=== PATIENT | male | born 1990 | race Hispanic/Latino ===

== ENCOUNTER 2017-01-09 14:00 | Inpatient (IN) | payer MEDICAID ==
[2017-01-09 14:00] VITALS: BMI 31.0
[2017-01-09] MEDS ORDERED: Sodium Chloride 0.9% 1,000 ML IV ONE ×2 (15:02→15:03)
--- NOTE | 2017-01-09 15:08 | C.PDOC ---
History Of Present Illness 26 y/o male presents to the ED with complains of fever which onset this morning. Pt admits to IV drug use and is concerned. Last use 6 hours ago. Fever 102.4 in ED. Denies vomiting, diarrhea, chest pain, SOB or any other complaints. Time Seen by Provider: 01/09/17 14:45 Chief Complaint (Nursing): Fever History Per: Patient History/Exam Limitations: no limitations Onset/Duration Of Symptoms: Hrs Current Symptoms Are (Timing): Still Present Sick Contacts (Context): None Associated Symptoms: Fever. denies: Vomiting, Diarrhea Severity: Mild Recent travel outside of the [place]: No Past Medical History Reviewed: Historical Data, Nursing Documentation, Vital Signs Vital Signs: Last Vital Signs Temp 98.7 F 01/09/17 18:18 Pulse 123 H 01/09/17 18:18 Resp 18 01/09/17 18:18 BP 107/53 L 01/09/17 18:18 Pulse Ox 97 01/09/17 18:18 - Medical History PMH: Anxiety, Depression - [facility] Procedures DETOXIFICATION SERVICES FOR SUBSTANCE ABUSE TREATMENT (06/13/16) GROUP DECK MATE FOR SUBSTANCE ABUSE TREATMENT, PSYCHOEDUCATION (05/13/16) MEDICATION MANAGEMENT (06/13/16) Family History: States: Unknown Family Hx - Social History Hx Tobacco Use: Yes Hx Alcohol Use: No Hx Substance Use: Yes (heroin iv) - Immunization History Hx Tetanus Toxoid Vaccination: No Hx Influenza Vaccination: No Hx Pneumococcal Vaccination: No Review Of Systems Except As Marked, All Systems Reviewed And Found Negative. Constitutional: Positive for: Fever Cardiovascular: Negative for: Chest Pain Respiratory: Negative for: Shortness of Breath Gastrointestinal: Negative for: Vomiting, Diarrhea Physical Exam - Physical Exam Appears: Non-toxic, No Acute Distress Skin: Warm, Dry, No Rash, Other (track vargas bilateral arms; erythema and tenderness to right antecubital area) Head: Atraumatic, Normacephalic Ear(s): Bilateral: Normal Nose: Normal Oral Mucosa: Moist Neck: Normal ROM, Supple Chest: Symmetrical Cardiovascular: Rhythm Regular (tachycardic), No Murmur Respiratory: Normal Breath Sounds, No Rales, No Rhonchi, No Wheezing Gastrointestinal/Abdominal: Soft, No Tenderness Extremity: Bilateral: Atraumatic Neurological/Psych: Oriented x3 ED Course And Treatment - Laboratory Results Result Diagrams: 01/09/17 15:35 01/09/17 15:02 Lab Interpretation: Normal O2 Sat by Pulse Oximetry: 97 (on room air) Pulse Ox Interpretation: Normal - Other Rad CXR X-Ray: Viewed By Me, Read By Radiologist Interpretation: FINDINGS: Examination limited by habitus. LUNGS: Subtle opacities at the right lung base and medial right lower lobe may reflect atelectasis versus developing infiltrate. Please note that chest x-ray has limited sensitivity for the detection of pulmonary masses. PLEURA: No significant pleural effusion identified. No definite pneumothorax . CARDIOVASCULAR: The cardiomediastinal silhouette appears within normal limits of size. OSSEOUS STRUCTURES: No acute osseous abnormality identified. VISUALIZED UPPER ABDOMEN: Unremarkable. OTHER FINDINGS: None. IMPRESSION: Subtle opacities at the right lung base and medial right lower lobe may reflect atelectasis versus developing infiltrate. Progress Note: Plan: EKG, labs, CXR, UA, IV fluids. Treated with rocephin 1 GM IV. 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 - Scribe Statement The provider has reviewed the documentation as recorded by the Getachew Randall All medical record entries made by the Getachew were at my direction and personally dictated by me. I have reviewed the chart and agree that the record accurately reflects my personal performance of the history, physical exam, medical decision making, and the department course for this patient. I have also personally directed, reviewed, and agree with the discharge instructions and disposition. Decision To Admit - Pt Status Changed To: Hospital Disposition Of: Inpatient - Admit Certification Admit to Inpatient:: After my assessment, the patient will require hospitalization for at least two midnights. This is because of the severity of symptoms shown, intensity of services needed, and/or the medical risk in this patient being treated as an outpatient. - InPatient: Physician Admission Certification:: Fever, UTI. Cellulitis right arm. Pneumonia. IVD - . Bed Request Type: Regular Admitting Physician: Payton Hu Patient Diagnosis: Fever, Drug dependence, UTI (urinary tract infection), Pneumonia, Cellulitis
[2017-01-09 15:45] LABS: BASO % 0.2 % (0.0-2.0); EOS % 0.2 % (0.0-4.0); HEMATOCRIT 39.3 % (35.0-51.0); LYMPH # 0.5 K/uL (1.0-4.3); LYMPH % 6.8 % (20.0-40.0); MEAN CELL VOLUME 82.7 fL (80.0-94.0); MEAN CORPUSCULAR HEMOGLOBIN 27.7 pg (27.0-31.0); MEAN CORPUSCULAR HGB CONC 33.5 g/dL (33.0-37.0); MEAN PLATELET VOLUME 7.9 fL (7.2-11.7); MONO # 0.4 K/uL (0.0-0.8); MONO % 5.6 % (0.0-10.0); PLATELET COUNT 134 K/uL (130-400); RED CELL DISTRIBUTION WIDTH 14.4 % (11.5-14.5); WHITE BLOOD COUNT 6.8 K/uL (4.8-10.8)
[2017-01-09 15:50] LABS: CHLORIDE 97 mmol/L (98-107); POTASSIUM 4.5 mmol/L (3.6-5.2); SODIUM 132 mmol/L (132-148)
[2017-01-09 15:52] LABS: GFR AFRICAN-AMERICAN > 60
[2017-01-09 15:53] LABS: ALB/GLOB RATIO 1.4 (1.0-2.1); ALKALINE PHOSPHATASE 44 U/L (38-126); ALT/SGPT 36 U/L (21-72); AST/SGOT 67 U/L (17-59); BILIRUBIN,TOTAL 0.5 mg/dL (0.2-1.3); BLOOD UREA NITROGEN 7 mg/dL (9-20); CALCIUM 7.9 mg/dl (8.6-10.4); CARBON DIOXIDE 25 mmol/L (22-30); GLUCOSE,RANDOM 95 mg/dL (75-110); TOTAL PROTEIN 6.6 g/dL (6.3-8.3)
--- NOTE | 2017-01-09 16:06 | RAD ---
HISTORY: SOB COMPARISON: Chest x-ray performed 05/05/16 TECHNIQUE: Chest PA and lateral FINDINGS: Examination limited by habitus. LUNGS: Subtle opacities at the right lung base and medial right lower lobe may reflect atelectasis versus developing infiltrate. Please note that chest x-ray has limited sensitivity for the detection of pulmonary masses. PLEURA: No significant pleural effusion identified. No definite pneumothorax . CARDIOVASCULAR: The cardiomediastinal silhouette appears within normal limits of size. OSSEOUS STRUCTURES: No acute osseous abnormality identified. VISUALIZED UPPER ABDOMEN: Unremarkable. OTHER FINDINGS: None. IMPRESSION: Subtle opacities at the right lung base and medial right lower lobe may reflect atelectasis versus developing infiltrate.
[2017-01-09] MEDS ORDERED: Sodium Chloride 0.9% 1,000 ML ONE ×2 (16:16→17:47)
[2017-01-09] MEDS ORDERED: cefTRIAXone IV 1 gm in Dextros 50 ML IV ONE (16:46)
[2017-01-09 16:49] LABS: RBC URINE 8 /hpf (0-3); URINE BACTERIA MOD (<OCC); URINE BILIRUBIN NEGATIVE (NEGATIVE); URINE BLOOD 1+ (NEGATIVE); URINE COLOR Yellow (YELLOW); URINE GLUCOSE (UA) NORMAL (Normal); URINE KETONE NEGATIVE (NEGATIVE); URINE LEUKOCYTE ESTERASE 3+ Leu/uL (Negative); URINE PROTEIN 2+ mg/dL (NEGATIVE); URINE UROBILINOGEN NORMAL mg/dL (0.2-1.0); WBC URINE 201 /hpf (0-5)
[2017-01-09 17:10] LABS: NEUTROPHIL 83 % (50-75); TOTAL CELLS COUNTED 100
[2017-01-09] MEDS ORDERED: cefTRIAXone IV 1 gm in Dextros 50 ML IVPB ONE (17:47)
[2017-01-09] MEDS ORDERED: Methadone 40 mg Tab PO ONE (19:44)
--- NOTE | 2017-01-09 20:29 | CP.PCM.HP ---
<Lina Maxwell - Last Filed: 01/09/17 20:35> History of Present Illness - History of Present Illness History of Present Illness: Internal medicine H & P for Hospitalist service-Lina Maxwell, PGY-1 Pt S & E at bedside. 26M w/PMH sig for Erythromalacia admitted to hospital for fever of unknown origin x 1 day. 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 No alleviating or aggravating factors identified. Admits to diaphoresis, chills, non productive cough, sinus congestion, myalgias, weakness, fatigue. Denies N/V, SOB, CP, abdominal pain, [place], dysphagia, changes in bowel or bladder habits, hematuria, hematemesis, hematuria, changes in vision, palpitations, [place], symptoms of withdrawal, seizure activity, sick contacts. PMH: Erythromalacia (sp?) PSH; Denies All: Denies SH: Denies tobacco or ETOH use, admits to heroin use- 15bags /day x 7 yrs intermittently, PMD: [place] in [place] Present on Admission - Present on Admission Any Indicators Present on Admission: No History of DVT/PE: No History of Uncontrolled Diabetes: No Urinary Catheter: No Decubitus Ulcer Present: No Review of Systems - Review of Systems All systems: reviewed and no additional remarkable complaints except - Constitutional Constitutional: Chills, Fever, Lethargy. absent: Headache, Weakness - EENT Eyes: absent: Blurred Vision, Change in Vision, Diplopia Ears: absent: Dizziness Nose/Mouth/Throat: Nasal Congestion, Sinus Pressure, Sore Throat - Cardiovascular Cardiovascular: absent: Chest Pain, Leg Edema, Palpitations - Respiratory Respiratory: Cough - Gastrointestinal Gastrointestinal: absent: Abdominal Pain, Constipation, Diarrhea, Hematemesis, Hematochezia, Melena, Nausea, Vomiting - Genitourinary Genitourinary: absent: Change in Urinary Stream, Dysuria, Hematuria - Musculoskeletal Musculoskeletal: Myalgias. absent: Numbness, Tingling - Integumentary Integumentary: absent: Rash - Neurological Neurological: absent: Numbness, Tingling, Weakness - Psychiatric Psychiatric: absent: Change in Appetite - Endocrine Endocrine: absent: Palpitations Past Patient History - Infectious Disease Hx of Infectious Diseases: None - Past Medical History & Family History Past Medical History?: Yes - Past Social History Smoking Status: Heavy Smoker > 10 Cigarettes Daily - CARDIAC Hx Cardiac Disorders: No Hx Hypertension: No - PULMONARY Hx Tuberculosis: No - NEUROLOGICAL HX Cerebrovascular Accident: No Hx Seizures: No - HEENT Hx HEENT Problems: No - RENAL Hx Chronic Kidney Disease: No - ENDOCRINE/METABOLIC Hx Endocrine Disorders: No - HEMATOLOGICAL/ONCOLOGICAL Hx Cancer: No Hx Human Immunodeficiency Virus (HIV): No - INTEGUMENTARY Hx Dermatological Problems: No - MUSCULOSKELETAL/RHEUMATOLOGICAL Hx Musculoskeletal Disorders: No Hx Falls: No - GASTROINTESTINAL Hx Gastrointestinal Disorders: No - GENITOURINARY/GYNECOLOGICAL Hx Sexually Transmitted Disorders: No - PSYCHIATRIC Hx Anxiety: Yes Hx Depression: Yes Hx Substance Use: Yes (heroin iv) - SURGICAL HISTORY Hx Surgeries: No - ANESTHESIA Hx Anesthesia: No Meds Allergies/Adverse Reactions: Allergies Allergy/AdvReac Type Severity Reaction Status Date / Time No Known Allergies Allergy Verified 09/18/16 21:53 Physical Exam - Constitutional Appears: Non-toxic, No Acute Distress - Head Exam Head Exam: ATRAUMATIC, NORMAL INSPECTION, NORMOCEPHALIC - Eye Exam Eye Exam: EOMI, Normal appearance, PERRL Pupil Exam: NORMAL ACCOMODATION, PERRL - ENT Exam ENT Exam: Mucous Membranes Moist, Normal Exam - Neck Exam Neck exam: Positive for: Full Rom, Normal Inspection. Negative for: Lymphadenopathy - Respiratory Exam Respiratory Exam: Clear to Auscultation Bilateral, NORMAL BREATHING PATTERN. absent: Chest Wall Tenderness, Rales, Rhonchi, Wheezes, Respiratory Distress - Cardiovascular Exam Cardiovascular Exam: Tachycardia, +S1, +S2 - GI/Abdominal Exam GI & Abdominal Exam: Normal Bowel Sounds, Soft. absent: Distended, Firm, Guarding, Hernia, Tenderness - Extremities Exam Extremities exam: Positive for: normal inspection. Negative for: pedal edema, tenderness - Back Exam Back exam: FULL ROM, NORMAL INSPECTION. absent: paraspinal tenderness, rash noted, tenderness - Neurological Exam Neurological exam: Alert, CN II-XII Intact, Oriented x3 - Psychiatric Exam Psychiatric exam: Normal Affect, Normal Mood - Skin Skin Exam: Diaphoretic, Intact, Warm Additional comments: pt's hands are redder vs. proximal upper extremity Results - Vital Signs Recent Vital Signs: Last Vital Signs Temp 98.7 F 01/09/17 18:18 Pulse 123 H 01/09/17 18:18 Resp 18 01/09/17 18:18 BP 107/53 L 01/09/17 18:18 Pulse Ox 97 01/09/17 18:31 - Labs Result Diagrams: 01/09/17 15:35 01/09/17 15:02 Assessment & Plan - Assessment and Plan (Free Text) Assessment: Fever of unknown origin, hx of IVDU Tmax 102.4 Tachycardia No leukocytosis FU echo FU EKG Rocephin 1gm daily NS@100 Tylenol PRN Fever Azithromycin 500mg daily FU blood cxr FU urine cxr CXR w/Subtle opacities at the right lung base and medial right lower lobe may reflect atelectasis versus developing infiltrate. UTI U/A pos for Nitrates, Leukocyte esterase On Rocephin Monitor Substance abuse Methadone 10mg Q6H Zofran PRN Psych consult GI/DVT ppx SCDs Heparin Pepcid Dispo Admit to Med surg VS Q4H Regular diet Activity as shyam OOBTC DW attending - Date & Time Date: 01/09/17 Time: 06:00 Decision To Admit - Pt Status Changed To: Hospital Disposition Of: Observation - . Bed Request Type: Regular Admitting Physician: Rogerio Roman <Rogerio Roman - Last Filed: 01/10/17 15:15> Results - Vital Signs Recent Vital Signs: Last Vital Signs Temp 98.0 F 01/10/17 07:52 Pulse 92 H 01/10/17 07:52 Resp 20 01/10/17 07:52 BP 128/80 01/10/17 07:52 Pulse Ox 95 01/10/17 07:52 - Labs Result Diagrams: 01/10/17 07:15 01/10/17 07:15 Labs: Laboratory Results - last 24 hr 01/10/17 07:15 WBC 4.6 L RBC 4.73 Hgb 13.1 Hct 38.7 MCV 81.8 MCH 27.6 MCHC 33.8 RDW 15.1 H Plt Count 124 L MPV 7.8 Neut % (Auto) 73.4 Lymph % (Auto) 15.0 L [place] % (Auto) 10.8 H Eos % (Auto) 0.5 Baso % (Auto) 0.3 Neut # 3.4 Lymph # 0.7 L [place] # 0.5 Eos # 0.0 Baso # 0.0 Differential Comment APTT 35 H Sodium 138 Potassium 3.8 Chloride 101 Carbon Dioxide 26 Anion Gap 16 BUN 7 L Creatinine 0.9 Est GFR ( Amer) > 60 Est GFR (Non-Af Amer) > 60 Random Glucose 87 Calcium 7.6 L Total Bilirubin 0.5 AST 40 ALT 32 Alkaline Phosphatase 45 Total Protein 5.7 L Albumin 3.3 L Globulin 2.5 Albumin/Globulin Ratio 1.3 Attending/Attestation - Attestation I have personally seen and examined this patient.: Yes I have fully participated in the care of the patient.: Yes I have reviewed all pertinent clinical information: Yes Notes (Text): 01/10/17 15:14 Patient was seen and examined at bedside with the resident. Patient complains of for subjective fever, aches and pains in the body and cough. We will admit the patient for pneumonia and for heroin withdrawal. We will start the patient on IV antibiotics and methadone as needed. Patient will also be evaluated by psychiatry for opioid abuse. I discussed the plan of care with the resident and agree with the above history and physical and assessment/plan but the resident.
[2017-01-09] MEDS: Azithromycin 500mg/250ML NS 250 ML IVPB SCH (21:44)
[2017-01-09] MEDS: Sodium Chloride 0.9% 1,000 ML IV SCH (22:19)
[2017-01-09 22:35] VITALS: RESP 20
[2017-01-10] MEDS: Sodium Chloride 0.9% 1,000 ML IV SCH ×3 (05:19→14:55)
[2017-01-10 07:21] LABS: BASO % 0.3 % (0.0-2.0); EOS % 0.5 % (0.0-4.0); MEAN PLATELET VOLUME 7.8 fL (7.2-11.7); MONO # 0.5 K/uL (0.0-0.8)
[2017-01-10 07:33] LABS: HEMATOCRIT 38.7 % (35.0-51.0); LYMPH # 0.7 K/uL (1.0-4.3); MEAN CELL VOLUME 81.8 fL (80.0-94.0); MEAN CORPUSCULAR HEMOGLOBIN 27.6 pg (27.0-31.0); MEAN CORPUSCULAR HGB CONC 33.8 g/dL (33.0-37.0); MONO % 10.8 % (0.0-10.0); NRBC % 0.3 % (0.0-2.0); RED CELL DISTRIBUTION WIDTH 15.1 % (11.5-14.5); WHITE BLOOD COUNT 4.6 K/uL (4.8-10.8)
[2017-01-10 08:17] LABS: CHLORIDE 101 mmol/L (98-107); SODIUM 138 mmol/L (132-148)
[2017-01-10 08:18] LABS: POTASSIUM 3.8 mmol/L (3.6-5.2)
[2017-01-10 08:20] LABS: ALB/GLOB RATIO 1.3 (1.0-2.1); ALKALINE PHOSPHATASE 45 U/L (38-126); AST/SGOT 40 U/L (17-59); BILIRUBIN,TOTAL 0.5 mg/dL (0.2-1.3); BLOOD UREA NITROGEN 7 mg/dL (9-20); CARBON DIOXIDE 26 mmol/L (22-30); GFR AFRICAN-AMERICAN > 60; GLUCOSE,RANDOM 87 mg/dL (75-110); TOTAL PROTEIN 5.7 g/dL (6.3-8.3)
[2017-01-10 08:21] LABS: ALT/SGPT 32 U/L (21-72); CALCIUM 7.6 mg/dl (8.6-10.4)
--- NOTE | 2017-01-10 13:33 | CP.PCM.PN ---
Addendum entered and electronically signed by Lina Maxwell DO 01/10/17 13:47: Spoke with psych- Dr. Noonan- regarding pt. Pt well known to psych service, advised that pt does not need formal psych consult/eval- treatment plan reviewed , recommendation made for Methadone taper- 30mg today, 20mg tomorrow, 10mg the next day, then discontinue. Pt has known history of signing out AMA prior to resolution of medical/psych care. Addendum entered and electronically signed by Lina Maxwell DO 01/10/17 13:34: Per nursing, pt's mother at bedside asking to talk to physician. Dr. Roman and myself went to speak with pt's mother with permission of pt - mother states that pt has been diagnosed with HIV, but never been on medications to manage it , was kicked out of house due to drug use, was staying on couches/the streets, continued using drugs. Would like HIV diagnosis confirmed and would like to explore detox options for pt- was told that detox would have to be at request/ desire of patient. Original Note: <Lina Maxwell - Last Filed: 01/10/17 13:29> Subjective - Date & Time of Evaluation Date of Evaluation: 01/10/17 Time of Evaluation: 07:40 - Subjective Subjective: Internal medicine progress note for Hospitalist Service- Lina Maxwell, PGY-1 Pt S & E at bedside. Pt reports feeling slightly better, no fevers overnight, but could not sleep- pt reports Seroquel use at night that helps him sleep. Denies N/V, chills, SOB , diaphoresis, CP, abdominal pain, other complaints. Pt is eating ok, urinating ok. Objective - Vital Signs/Intake and Output Vital Signs (last 24 hours): Temp Pulse Resp BP Pulse Ox 98.0 F 92 H 20 128/80 95 01/10/17 07:52 01/10/17 07:52 01/10/17 07:52 01/10/17 07:52 01/10/17 07:52 Intake and Output: 01/10/17 01/10/17 06:59 18:59 Intake Total 920 Balance 920 - Medications Medications: Current Medications Acetaminophen (Tylenol 325mg Tab) 650 mg PO Q6 PRN PRN Reason: Fever >100.4 F Famotidine (Pepcid) 20 mg PO BID [facility] Last Admin: 01/10/17 09:13 Dose: 20 mg Gabapentin (Neurontin) 600 mg PO TID [facility] Heparin Sodium (Porcine) (Heparin) 5,000 units SC Q8 [facility] Last Admin: 01/10/17 05:18 Dose: Not Given Azithromycin (Zithromax 500mg In Ns Addvantage) 250 mls @ 167 mls/hr IVPB Q24H [facility] Last Admin: 01/09/17 21:44 Dose: 167 mls/hr Ceftriaxone Sodium 1 gm/ (Sodium Chloride) 100 mls @ 100 mls/hr IVPB DAILY [facility] Last Admin: 01/10/17 09:14 Dose: 100 mls/hr Sodium Chloride (Sodium Chloride 0.9%) 1,000 mls @ 100 mls/hr IV .Q10H [facility] Last Admin: 01/10/17 05:22 Dose: 100 mls/hr Methadone HCl (Methadone) 10 mg PO Q8H PRN PRN Reason: Agitation Ondansetron HCl (Zofran Inj) 4 mg IVP Q6 PRN PRN Reason: Nausea/Vomiting Pneumococcal Polyvalent Vaccine (Pneumovax 23 Vaccine) 0.5 ml SC .ONCE ONE Stop: 01/12/17 10:01 Quetiapine Fumarate (Seroquel) 200 mg PO HS [facility] - Labs Labs: 01/10/17 07:15 01/10/17 07:15 APTT 35 SECONDS (21-34) H 01/10/17 07:15 - Constitutional Appears: Non-toxic, No Acute Distress - Head Exam Head Exam: ATRAUMATIC, NORMAL INSPECTION, NORMOCEPHALIC - Eye Exam Eye Exam: EOMI, Normal appearance, PERRL Pupil Exam: NORMAL ACCOMODATION, PERRL - ENT Exam ENT Exam: Mucous Membranes Moist, Normal Exam - Neck Exam Neck Exam: Full ROM, Normal Inspection - Respiratory Exam Respiratory Exam: Clear to Ausculation Bilateral, NORMAL BREATHING PATTERN. absent: Accessory Muscle Use, Chest Wall Tenderness, Decreased Breath Sounds, Rhonchi, Wheezes, Stridor - Cardiovascular Exam Cardiovascular Exam: REGULAR RHYTHM, +S1, +S2 - GI/Abdominal Exam GI & Abdominal Exam: Soft, Normal Bowel Sounds. absent: Distended, Firm, Guarding, Rigid, Tenderness - Extremities Exam Extremities Exam: Full ROM, Normal Inspection. absent: Pedal Edema - Neurological Exam Neurological Exam: Alert, Awake, CN II-XII Intact, Oriented x3 - Psychiatric Exam Psychiatric exam: Normal Affect, Normal Mood - Skin Skin Exam: Dry, Intact, Normal Color, Warm Assessment and Plan - Assessment and Plan (Free Text) Assessment: Fevers, hx of IVDU Afebrile over last 24H Tachycardia- resolved No leukocytosis FU echo FU EKG Rocephin 1gm daily NS@100 Tylenol PRN Fever Azithromycin 500mg daily FU blood cxr Urine cxr neg CXR w/Subtle opacities at the right lung base and medial right lower lobe may reflect atelectasis versus developing infiltrate. FU HIV FU Hep panel UTI U/A pos for Nitrates, Leukocyte esterase On Rocephin Monitor Substance abuse Methadone 10mg Q6H changed to Q8H Zofran PRN Called pharmacy to confirm home meds, restarted Seroquel 200mg HS, Gabapentin 600mg TID [facility] Psych consult GI/DVT ppx SCDs Heparin Pepcid Dispo cont medical mgmt VS Q4H Regular diet Activity as shyam OOBTC Will consider ID consult if indicated DW attending <Rogerio Roman - Last Filed: 01/10/17 17:16> Objective - Vital Signs/Intake and Output Vital Signs (last 24 hours): Temp Pulse Resp BP Pulse Ox 97.6 F 83 20 112/71 96 01/10/17 15:00 01/10/17 15:00 01/10/17 15:00 01/10/17 15:00 01/10/17 15:00 Intake and Output: 01/10/17 01/10/17 06:59 18:59 Intake Total 920 1200 Output Total 700 Balance 920 500 - Medications Medications: Current Medications Acetaminophen (Tylenol 325mg Tab) 650 mg PO Q6 PRN PRN Reason: Fever >100.4 F Famotidine (Pepcid) 20 mg PO BID [facility] Last Admin: 01/10/17 09:13 Dose: 20 mg Gabapentin (Neurontin) 600 mg PO TID [facility] Last Admin: 01/10/17 13:41 Dose: 600 mg Heparin Sodium (Porcine) (Heparin) 5,000 units SC Q8 [facility] Last Admin: 01/10/17 13:41 Dose: 5,000 units Azithromycin (Zithromax 500mg In Ns Addvantage) 250 mls @ 167 mls/hr IVPB Q24H [facility] Last Admin: 01/09/17 21:44 Dose: 167 mls/hr Ceftriaxone Sodium 1 gm/ (Sodium Chloride) 100 mls @ 100 mls/hr IVPB DAILY [facility] Last Admin: 01/10/17 09:14 Dose: 100 mls/hr Sodium Chloride (Sodium Chloride 0.9%) 1,000 mls @ 100 mls/hr IV .Q10H [facility] Last Admin: 01/10/17 14:55 Dose: 100 mls/hr Methadone HCl (Methadone) 10 mg PO Q8H PRN PRN Reason: Agitation Ondansetron HCl (Zofran Inj) 4 mg IVP Q6 PRN PRN Reason: Nausea/Vomiting Pneumococcal Polyvalent Vaccine (Pneumovax 23 Vaccine) 0.5 ml SC .ONCE ONE Stop: 01/12/17 10:01 Quetiapine Fumarate (Seroquel) 200 mg PO HS [facility] - Labs Labs: 01/10/17 07:15 01/10/17 07:15 APTT 35 SECONDS (21-34) H 01/10/17 07:15 Attending/Attestation - Attestation I have personally seen and examined this patient.: Yes I have fully participated in the care of the patient.: Yes I have reviewed all pertinent clinical information, including history, physical exam and plan: Yes Notes (Text): 01/10/17 17:15 Patient was seen and examined at bedside today with the [place] and patient is feeling slightly better Cough is improving Body aches and pains are also improving We will continue treatment of for heroin withdrawal. Methadone We will taper the methadone Continue IV antibiotics for possible pneumonia. Psychiatry evaluation requested. Discussed with the patient and with the patient's mother with the permission of the patient We will check for HIV and hepatitis C Discussed the plan of care with the resident and agree with the history and physical and assessment/plan as stated above
--- NOTE | 2017-01-10 14:43 | CARD ---
APPROVED REPORT EKG Measurement Heart [id number] CT [id number] <Conclusion> Sinus tachycardia Possible Left atrial enlargement Borderline ECG
--- NOTE | 2017-01-10 17:57 | PCM.PSYCH ---
Initial Psychiatric Evaluation - Initial Psychiatric Evaluation Type of Admission: Voluntary Legal Status: Capacity Chief Complaint (in patient's own words): "I'm sick again" History of Present Illness and Precipitating Events: The pt is seen, chart reviewed and case discussed. 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 Consult was requested b/c he is using anna again. He is a 26 yo WM, single, no child, lives with friends and sometimes his family. 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 Used to have high paying jobs but he now regrets losing them all bc of drug use. He also has legal problems and fears he fears jail time, He uses 20 bags heroin and was in [facility]. Denies benzo or alcohol use He doesn;t remember if he was going to any program lately. Past psych history: Depression and anxiety. He uses Seroquel 200 mg and gabapentin. He has been admitted to psychiatry in our hospital but has never attempted suicide. He used many psychiatric medications in the past including SSRIs. He tends to sign out AMA as he gets "cooped up" and can be impulsive. Family psych history: His cousins had alcohol dependence Medical history: He was diagnosed with Polycythemia Vera but then they said it may not be that. Current Medications: Active Medications Generic Name Dose Route Start Last Admin Trade Name Freq PRN Reason Stop Dose Admin Acetaminophen 650 mg 01/09/17 18:45 Tylenol 325mg Tab PO Q6 PRN Fever >100.4 F Famotidine 20 mg 01/09/17 18:45 01/10/17 09:13 Pepcid PO 20 mg BID EMILIANO Administration Gabapentin 600 mg 01/10/17 14:00 01/10/17 13:41 Neurontin PO 600 mg TID EMILIANO Administration Heparin Sodium (Porcine) 5,000 units 01/09/17 22:00 01/10/17 13:41 Heparin SC 5,000 units Q8 EMILIANO Administration Azithromycin 250 mls @ 167 mls/hr 01/09/17 18:45 01/09/17 21:44 Zithromax 500mg In Ns Addvantage IVPB 167 mls/hr Q24H EMILIANO Administration Ceftriaxone Sodium 1 gm/ 100 mls @ 100 mls/hr 01/10/17 10:00 01/10/17 09:14 Sodium Chloride IVPB 100 mls/hr DAILY EMILIANO Administration Sodium Chloride 1,000 mls @ 100 mls/hr 01/09/17 18:45 01/10/17 14:55 Sodium Chloride 0.9% IV 100 mls/hr .Q10H EMILIANO Administration Methadone HCl 10 mg 01/10/17 13:25 Methadone PO Q8H PRN Agitation Ondansetron HCl 4 mg 01/09/17 18:45 Zofran Inj IVP Q6 PRN Nausea/Vomiting Pneumococcal Polyvalent Vaccine 0.5 ml 01/12/17 10:00 Pneumovax 23 Vaccine SC 01/12/17 10:01 .ONCE ONE Quetiapine Fumarate 200 mg 01/10/17 22:00 Seroquel PO HS EMILIANO Past Psychiatric History - Past Psychiatric History Previous Treatment History: Inpatient Pertinent Medical Hx (Current Medical&Sleep Prob, Allergies): Allergies Allergy/AdvReac Type Severity Reaction Status Date / Time No Known Allergies Allergy Verified 09/18/16 21:53 Gabapentin [Neurontin] 300 mg PO TID #90 cap 09/19/16 QUEtiapine [SEROquel] 100 mg PO HS #30 tab 09/19/16 Review of Systems - Neurological Neurological: UNREMARKABLE - Psychiatric Psychiatric: Abnormal Sleep Pattern, Anxiety, Difficulty Concentrating, Irritability. absent: Hallucinations, Homicidal Ideation, Paranoia, Suicidal Ideation Mental Status Examination - Personal Presentation Personal Presentation: Looks stated age - Affect Affect: Constricted - Motor Activity Motor Activity: Calm - Reliability in Providing Information Reliability in Providing Information: Good - Speech Speech: Organized - Mood Mood: Anxious - Formal Thought Process Formal Thought Process: No Impairment - Obsessions/Compulsions Obsessions: No Compulsions: No - Cognitive Functions Orientation: Person, Place, Time Sensorium: Alert Attention/Concentration: Attentive Estimate of Intelligence: Average Judgement: Intact, as evidence by: Insight regarding need for hospitalization Memory: Recent intact, as evidence by: Ability to recall events of the day, Remote intact, as evidenced by: Abilit to recall sig. life events - Risk Risk: Withdrawal, Diminished functioning - Strength & Assets Inventory Strength & Assets Inventory: Cooperative DSM 5 DX - DSM 5 DSM 5 Diagnosis: Primary: Major depression, recurrent, severe w/o psychosis Opioid withdrawal Opioid use d/o - severe Cocaine use d/o - severe Polyctemia Vera? - Recommended/Plan of Treatment Treatment Recommendations and Plan of Treatment: Depression: -Supportive therapy and CBT -Seroquel and Trazodone prn -Attend groups and activities Opioid withdrawal: -Methadone detox adjusted, getting 20 mg today and will taper off -As needed medications -Support and psychoeducation -Attend groups and activities Anxiety -Atarax PRN -Monitor symptoms Opioid use disorder: -Refer to [facility] for IOP and Suboxone treatment. He is not sure -Relapse prevention skills, CBT and CO Cocaine: -Gabapentin for withdrawal and anxiety -CO and CBT for abstinence Nicotine: -patch -CO and CBT 33 min
[2017-01-10] MEDS: Azithromycin 500mg/250ML NS 250 ML IVPB SCH (19:14)
[2017-01-11] MEDS: Sodium Chloride 0.9% 1,000 ML IV SCH ×3 (00:45→10:29)
[2017-01-11 07:48] VITALS: BP 116/73; PULSE 71; TEMP 97.7; O2SAT 96
[2017-01-11 08:14] LABS: BASO % 0.2 % (0.0-2.0); EOS # 0.1 K/uL (0.0-0.7); EOS % 4.8 % (0.0-4.0); HEMATOCRIT 37.4 % (35.0-51.0); LYMPH # 1.2 K/uL (1.0-4.3); LYMPH % 50.1 % (20.0-40.0); MEAN CELL VOLUME 82.3 fL (80.0-94.0); MEAN CORPUSCULAR HEMOGLOBIN 27.2 pg (27.0-31.0); MEAN CORPUSCULAR HGB CONC 33.1 g/dL (33.0-37.0); MEAN PLATELET VOLUME 7.9 fL (7.2-11.7); MONO # 0.3 K/uL (0.0-0.8); MONO % 12.2 % (0.0-10.0); NRBC % 0.1 % (0.0-2.0); RED CELL DISTRIBUTION WIDTH 15.4 % (11.5-14.5); WHITE BLOOD COUNT 2.5 K/uL (4.8-10.8)
[2017-01-11 08:43] LABS: CHLORIDE 108 mmol/L (98-107); POTASSIUM 3.8 mmol/L (3.6-5.2); SODIUM 142 mmol/L (132-148)
[2017-01-11 08:45] LABS: GFR AFRICAN-AMERICAN > 60
[2017-01-11 08:46] LABS: ALB/GLOB RATIO 1.3 (1.0-2.1); ALKALINE PHOSPHATASE 39 U/L (38-126); ALT/SGPT 29 U/L (21-72); AST/SGOT 29 U/L (17-59); BILIRUBIN,TOTAL 0.3 mg/dL (0.2-1.3); BLOOD UREA NITROGEN 7 mg/dL (9-20); CALCIUM 7.7 mg/dl (8.6-10.4); CARBON DIOXIDE 24 mmol/L (22-30); GLUCOSE,RANDOM 62 mg/dL (75-110); TOTAL PROTEIN 5.6 g/dL (6.3-8.3)
--- NOTE | 2017-01-11 11:04 | CP.PCM.PN ---
Addendum entered and electronically signed by Lina Maxwell DO 01/11/17 13:54: Pt requesting nicotine patch - ordered. Addendum entered and electronically signed by Lina Maxwell DO 01/11/17 11:50: Pt lost IV access - discontinued Rocephin and Azithromycin IVPB- started Augmentin and Zithromax PO. Addendum entered and electronically signed by Lina Maxwell DO 01/11/17 11:05: PT/OT ordered Original Note: <Lina Maxwell - Last Filed: 01/11/17 11:03> Subjective - Date & Time of Evaluation Date of Evaluation: 01/11/17 Time of Evaluation: 07:10 - Subjective Subjective: Internal medicine progress note for Hospitalist Service- Lina Maxwell, PGY-1 Pt S & E at bedside. Pt reports his condition is improved, he is no longer experiencing myalgias and diffuse aches, Pt states chills significantly reduced and his energy has returned. Pt states he also has not been eating well, attributing it to his withdrawing from heroin. Denies diaphoresis, WHITLEY, F, Chills, SOB, Cough, CP, Palp , Dysuria,urinary freq and urge, N, V, D, C, and myalgias. Objective - Vital Signs/Intake and Output Vital Signs (last 24 hours): Temp Pulse Resp BP Pulse Ox 97.7 F 71 20 116/73 96 01/11/17 07:45 01/11/17 07:45 01/11/17 07:45 01/11/17 07:45 01/11/17 07:45 Intake and Output: 01/11/17 01/11/17 06:59 18:59 Intake Total 2240 Balance 2240 - Medications Medications: Current Medications Acetaminophen (Tylenol 325mg Tab) 650 mg PO Q6 PRN PRN Reason: Fever >100.4 F Famotidine (Pepcid) 20 mg PO BID [facility] Last Admin: 01/11/17 10:29 Dose: 20 mg Gabapentin (Neurontin) 600 mg PO TID [facility] Last Admin: 01/11/17 10:29 Dose: 600 mg Heparin Sodium (Porcine) (Heparin) 5,000 units SC Q8 [facility] Last Admin: 01/11/17 05:38 Dose: 5,000 units Azithromycin (Zithromax 500mg In Ns Addvantage) 250 mls @ 167 mls/hr IVPB Q24H [facility] Last Admin: 01/10/17 19:14 Dose: 167 mls/hr Ceftriaxone Sodium 1 gm/ (Sodium Chloride) 100 mls @ 100 mls/hr IVPB DAILY [facility] Last Admin: 01/11/17 10:57 Dose: 100 mls/hr Sodium Chloride (Sodium Chloride 0.9%) 1,000 mls @ 100 mls/hr IV .Q10H [facility] Last Admin: 01/11/17 10:29 Dose: Not Given Methadone HCl (Methadone) 15 mg PO Q24H EMILIANO PRN Reason: Taper Stop: 01/15/17 09:59 Last Admin: 01/11/17 10:28 Dose: 15 mg Ondansetron HCl (Zofran Inj) 4 mg IVP Q6 PRN PRN Reason: Nausea/Vomiting Pneumococcal Polyvalent Vaccine (Pneumovax 23 Vaccine) 0.5 ml SC .ONCE ONE Stop: 01/12/17 10:01 Quetiapine Fumarate (Seroquel) 200 mg PO HS [facility] Last Admin: 01/10/17 21:59 Dose: 200 mg - Labs Labs: 01/11/17 08:02 01/11/17 08:02 APTT 35 SECONDS (21-34) H 01/10/17 07:15 - Constitutional Appears: Non-toxic, No Acute Distress - Head Exam Head Exam: ATRAUMATIC, NORMAL INSPECTION, NORMOCEPHALIC - Eye Exam Eye Exam: EOMI, Normal appearance, PERRL Pupil Exam: NORMAL ACCOMODATION, PERRL - ENT Exam ENT Exam: Mucous Membranes Moist, Normal Exam - Neck Exam Neck Exam: Full ROM, Normal Inspection - Respiratory Exam Respiratory Exam: Clear to Ausculation Bilateral, NORMAL BREATHING PATTERN - Cardiovascular Exam Cardiovascular Exam: REGULAR RHYTHM, +S1, +S2 - GI/Abdominal Exam GI & Abdominal Exam: Soft, Normal Bowel Sounds. absent: Tenderness - Back Exam Back Exam: Full ROM, NORMAL INSPECTION - Neurological Exam Neurological Exam: Alert, Awake, CN II-XII Intact, Oriented x3 - Psychiatric Exam Psychiatric exam: Normal Affect, Normal Mood - Skin Skin Exam: Dry, Intact, Warm. absent: Normal Color (B/L hands redder vs. rest of upper extremities) Assessment and Plan - Assessment and Plan (Free Text) Assessment: Fevers, hx of IVDU Afebrile over last 24H Leukopenia 2.5 FU echo- report pending EKG on 01/09- sinus tachycardia Rocephin 1gm daily NS@100 Tylenol PRN Fever Azithromycin 500mg daily Blood cxr neg x 24H Urine cxr neg CXR w/Subtle opacities at the right lung base and medial right lower lobe may reflect atelectasis versus developing infiltrate. FU HIV tests Hep panel neg UTI U/A pos for Nitrates, Leukocyte esterase On Rocephin Monitor Substance abuse Methadone 5mg Q24H as per psych Zofran PRN Cont Seroquel 200mg HS Cont Gabapentin 600mg TID EMILIANO Psych recs- Methadone taper, outpatient [facility] for IOP and suboxone treatment- pt unsure if desiring treatment at this time GI/DVT ppx SCDs Heparin Pepcid Dispo cont medical mgmt VS Q4H Regular diet Activity as shyam OOBTC DW attending <Rogerio Roman - Last Filed: 01/11/17 15:59> Objective - Vital Signs/Intake and Output Vital Signs (last 24 hours): Temp Pulse Resp BP Pulse Ox 97.7 F 71 20 116/73 96 01/11/17 07:45 01/11/17 07:45 01/11/17 07:45 01/11/17 07:45 01/11/17 07:45 Intake and Output: 01/11/17 01/11/17 06:59 18:59 Intake Total 2240 Balance 2240 - Medications Medications: Current Medications Acetaminophen (Tylenol 325mg Tab) 650 mg PO Q6 PRN PRN Reason: Fever >100.4 F Amoxicillin/Clavulanate Potassium (Augmentin 500 Mg-125 Mg Tab) 1 tab PO Q12H [facility] Last Admin: 01/11/17 13:09 Dose: 1 tab Azithromycin (Zithromax) 500 mg PO DAILY [facility] Last Admin: 01/11/17 13:09 Dose: 500 mg Famotidine (Pepcid) 20 mg PO BID [facility] Last Admin: 01/11/17 10:29 Dose: 20 mg Gabapentin (Neurontin) 600 mg PO TID [facility] Last Admin: 01/11/17 13:08 Dose: 600 mg Heparin Sodium (Porcine) (Heparin) 5,000 units SC Q12 [facility] Last Admin: 01/11/17 13:17 Dose: Not Given Sodium Chloride (Sodium Chloride 0.9%) 1,000 mls @ 100 mls/hr IV .Q10H [facility] Last Admin: 01/11/17 10:29 Dose: Not Given Methadone HCl (Methadone) 15 mg PO Q24H EMILIANO PRN Reason: Taper Stop: 01/15/17 09:59 Last Admin: 01/11/17 10:28 Dose: 15 mg Nicotine (Nicoderm Cq) 1 patch TD DAILY [facility] Last Admin: 01/11/17 14:38 Dose: 1 patch Ondansetron HCl (Zofran Inj) 4 mg IVP Q6 PRN PRN Reason: Nausea/Vomiting Pneumococcal Polyvalent Vaccine (Pneumovax 23 Vaccine) 0.5 ml SC .ONCE ONE Stop: 01/12/17 10:01 Quetiapine Fumarate (Seroquel) 200 mg PO HS [facility] Last Admin: 01/10/17 21:59 Dose: 200 mg - Labs Labs: 01/11/17 08:02 01/11/17 08:02 APTT 35 SECONDS (21-34) H 01/10/17 07:15 Attending/Attestation - Attestation I have personally seen and examined this patient.: Yes I have fully participated in the care of the patient.: Yes I have reviewed all pertinent clinical information, including history, physical exam and plan: Yes Notes (Text): 01/11/17 15:58 Patient was seen and examined at bedside with the resident He is feeling much better today. Denies any cough or expectoration Patient is afebrile for more than 24 hours Labs noted. Negative hepatitis panel and negative for HIV. Patient started on oral antibiotics Patient is anxious for discharge to to home We will discharge the patient home on oral antibiotics
[2017-01-11] MEDS ORDERED: Amoxicillin-Clav 500-125 mg Tab PO SCH (12:00)
--- NOTE | 2017-01-11 14:24 | CARD ---
APPROVED REPORT EXAM: Two-dimensional and M-mode echocardiogram with Doppler and color Doppler. Other Information Quality : GoodRhythm : NSR INDICATION IVDU/UTI M-Mode DIMENSIONS RVDd2.74 (2.1-3.2cm)Left Atrium (MM)3.23 (2.5-4.0cm) IVSd1.08 (0.7-1.1cm)Aortic Root2.88 (2.2-3.7cm) LVDd5.69 (4.0-5.6cm)Aortic Cusp Exc.2.46 (1.5-2.0cm) PWd0.66 (0.7-1.1cm)FS (%) 37 % LVDs3.61 (2.0-3.8cm)LVEF (%)66 (>50%) Mitral Valve MV E Nyrgfxpu60.8cm/sMV A Edenxqme79.5cm/sE/A ratio1.2 TDI E/Lateral E'0.0E/Medial E'0.0 Tricuspid Valve TR Peak [id number]/sTR Peak Gr.[id number] LEFT VENTRICLE The left ventricle is normal size. There is normal left ventricular wall thickness. The left ventricular function is normal. The left ventricular ejection fraction is within the normal range. No regional wall motion abnormalities noted. The left ventricular diastolic function is normal. No left ventricle thrombus noted on this study. There is no ventricular septal defect visualized. There is no left ventricular aneurysm. There is no mass noted in the left ventricle. RIGHT VENTRICLE The right ventricle is normal size. There is normal right ventricular wall thickness. The right ventricular systolic function is normal. ATRIA The left atrium size is normal. The right atrium size is normal. The interatrial septum is intact with no evidence for an atrial septal defect. AORTIC VALVE The aortic valve is normal in structure and function. No aortic regurgitation is present. There is no aortic valvular stenosis. There is no aortic valvular vegetation. MITRAL VALVE The mitral valve is normal in structure and function. There is no evidence of mitral valve prolapse. There is no mitral valve stenosis. There is no mitral valve regurgitation noted. TRICUSPID VALVE The tricuspid valve is normal in structure and function. There is mild tricuspid regurgitation. Right ventricular systolic pressure is estimated at less than 30 mmHg. There is no tricuspid valve prolapse or vegetation. There is no tricuspid valve stenosis. PULMONIC VALVE The pulmonary valve is normal in structure and function. There is no pulmonic valvular regurgitation. There is no pulmonic valvular stenosis. GREAT VESSELS The aortic root is normal in size. The ascending aorta is normal in size. The pulmonary artery is normal. The IVC is normal in size and collapses >50% with inspiration. PERICARDIAL EFFUSION The pericardium appears normal. There is no pleural effusion. <Conclusion> The left ventricular function is normal. The left ventricular ejection fraction is within the normal range. No regional wall motion abnormalities noted. The aortic valve is normal in structure and function. The mitral valve is normal in structure and function. The tricuspid valve is normal in structure and function.
--- NOTE | 2017-01-11 15:07 | CP.PCM.DIS ---
<Lina Maxwell - Last Filed: 01/11/17 15:08> Provider - Provider Date of Admission: 01/09/17 18:23 Attending physician: Rogerio Roman MD Primary care physician: Aureliano Consults: Psych-[place] Time Spent in preparation of Discharge (in minutes): 60 Hospital Course - Lab Results Lab Results: Most Recent Lab Values WBC 2.5 K/uL (4.8-10.8) L 01/11/17 08:02 RBC 4.55 Mil/uL (4.40-5.90) 01/11/17 08:02 Hgb 12.4 g/dL (12.0-18.0) 01/11/17 08:02 Hct 37.4 % (35.0-51.0) 01/11/17 08:02 MCV 82.3 fL (80.0-94.0) 01/11/17 08:02 MCH 27.2 pg (27.0-31.0) 01/11/17 08:02 MCHC 33.1 g/dL (33.0-37.0) 01/11/17 08:02 RDW 15.4 % (11.5-14.5) H 01/11/17 08:02 Plt Count 118 K/uL (130-400) L 01/11/17 08:02 MPV 7.9 fL (7.2-11.7) 01/11/17 08:02 Neut % (Auto) 32.7 % (50.0-75.0) L 01/11/17 08:02 Lymph % (Auto) 50.1 % (20.0-40.0) H 01/11/17 08:02 [place] % (Auto) 12.2 % (0.0-10.0) H 01/11/17 08:02 Eos % (Auto) 4.8 % (0.0-4.0) H 01/11/17 08:02 Baso % (Auto) 0.2 % (0.0-2.0) 01/11/17 08:02 Neut # 0.8 K/uL (1.8-7.0) L 01/11/17 08:02 Lymph # 1.2 K/uL (1.0-4.3) 01/11/17 08:02 [place] # 0.3 K/uL (0.0-0.8) 01/11/17 08:02 Eos # 0.1 K/uL (0.0-0.7) 01/11/17 08:02 Baso # 0.0 K/uL (0.0-0.2) 01/11/17 08:02 Neutrophils % (Manual) 83 % (50-75) H 01/09/17 15:35 Band Neutrophils % 7 % (0-2) H 01/09/17 15:35 Lymphocytes % (Manual) 4 % (20-40) L 01/09/17 15:35 Monocytes % (Manual) 6 % (0-10) 01/09/17 15:35 Differential Comment 01/10/17 07:15 Platelet Estimate Normal (NORMAL) 01/09/17 15:35 Hypochromasia (manual) Slight 01/09/17 15:35 Microcytosis (manual) Slight 01/09/17 15:35 Ovalocytes Slight 01/09/17 15:35 APTT 35 SECONDS (21-34) H 01/10/17 07:15 Sodium 142 mmol/L (132-148) 01/11/17 08:02 Potassium 3.8 mmol/L (3.6-5.2) 01/11/17 08:02 Chloride 108 mmol/L (98-107) H 01/11/17 08:02 Carbon Dioxide 24 mmol/L (22-30) 01/11/17 08:02 Anion Gap 14 (10-20) 01/11/17 08:02 BUN 7 mg/dL (9-20) L 01/11/17 08:02 Creatinine 0.8 MG/DL (0.8-1.5) 01/11/17 08:02 Est GFR ( Amer) > 60 01/11/17 08:02 Est GFR (Non-Af Amer) > 60 01/11/17 08:02 Random Glucose 62 mg/dL (75-110) L 01/11/17 08:02 Lactic Acid 0.8 mmol/L (0.7-2.1) 01/09/17 15:35 Calcium 7.7 mg/dl (8.6-10.4) L 01/11/17 08:02 Total Bilirubin 0.3 mg/dL (0.2-1.3) 01/11/17 08:02 AST 29 U/L (17-59) 01/11/17 08:02 ALT 29 U/L (21-72) 01/11/17 08:02 Alkaline Phosphatase 39 U/L (38-126) 01/11/17 08:02 Total Protein 5.6 g/dL (6.3-8.3) L 01/11/17 08:02 Albumin 3.2 g/dL (3.5-5.0) L 01/11/17 08:02 Globulin 2.4 gm/dL (2.2-3.9) 01/11/17 08:02 Albumin/Globulin Ratio 1.3 (1.0-2.1) 01/11/17 08:02 Urine Color Yellow (YELLOW) 01/09/17 16:49 Urine Clarity Hazy (Clear) 01/09/17 16:49 Urine pH 6.0 (5.0-8.0) 01/09/17 16:49 Ur Specific [place] 1.010 (1.003-1.030) 01/09/17 16:49 Urine Protein 2+ mg/dL (NEGATIVE) H 01/09/17 16:49 Urine Glucose (UA) Normal mg/dL (Normal) 01/09/17 16:49 Urine Ketones Negative mg/dL (NEGATIVE) 01/09/17 16:49 Urine Blood 1+ (NEGATIVE) H 01/09/17 16:49 Urine Nitrate Positive (NEGATIVE) H 01/09/17 16:49 Urine Bilirubin Negative (NEGATIVE) 01/09/17 16:49 Urine Urobilinogen Normal mg/dL (0.2-1.0) 01/09/17 16:49 Ur Leukocyte Esterase 3+ Estella/uL (Negative) H 01/09/17 16:49 Urine WBC (Auto) 201 /hpf (0-5) H 01/09/17 16:49 Urine RBC (Auto) 8 /hpf (0-3) H 01/09/17 16:49 Ur Squamous Epith Cells < 1 /hpf (0-5) 01/09/17 16:49 Urine Bacteria Mod (<OCC) H 01/09/17 16:49 Hepatitis A IgM Ab Negative (NEGATIVE) 01/10/17 14:25 Hep Bs Antigen Negative (NEGATIVE) 01/10/17 14:25 Hep B Core IgM Ab Negative (NEGATIVE) 01/10/17 14:25 Hepatitis C Antibody Negative (NEGATIVE) 01/10/17 14:25 HIV 1&2 Antibody Screen Negative (NEGATIVE) 01/11/17 11:02 - Hospital Course Hospital Course: 26M w/PMH sig for Erythromalacia admitted to hospital for fever of unknown origin x 1 day. 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 No alleviating or aggravating factors identified. Admits to diaphoresis, chills, non productive cough, sinus congestion, myalgias, weakness, fatigue. Denies N/V, SOB, CP, abdominal pain, WHITLEY, dysphagia, changes in bowel or bladder habits, hematuria, hematemesis, hematuria, changes in vision, palpitations, BOSTON, symptoms of withdrawal, seizure activity, sick contacts. Pt admitted to hospital for fevers and positive U/A. Pt given IV antibiotics, fevers resolved overnight. Pt placed on methadone, psych consulted - recommendation for outpatient detox program and methadone taper given. Pt lost IV access on hospital day 2, was switched to PO antibiotics- pt feeling well, asking to go home. Pt medically stable, ready for discharge home on PO antibiotics. Diagnoses: fevers, IV drug use/substance abuse, UTI, anxiety Please see EMR for full details of hospital stay - Date & Time of H&P Date of H&P: 01/09/17 Time of H&P: 20:27 Discharge Exam - Head Exam Head Exam: ATRAUMATIC, NORMAL INSPECTION, NORMOCEPHALIC - Eye Exam Eye Exam: EOMI, Normal appearance, PERRL Pupil Exam: NORMAL ACCOMODATION, PERRL - ENT Exam ENT Exam: Mucous Membranes Moist, Normal Exam - Neck Exam Neck exam: Full Rom, Normal Inspection - Respiratory Exam Respiratory Exam: Clear to PA & Lateral, NORMAL BREATHING PATTERN, UNREMARKABLE - GI/Abdominal Exam GI & Abdominal Exam: Normal Bowel Sounds, Soft, Unremarkable. absent: Tenderness - Extremities Exam Extremities exam: full ROM, normal inspection - Back Exam Back exam: FULL ROM, NORMAL INSPECTION - Neurological Exam Neurological exam: Alert, CN II-XII Intact, Normal Gait, Oriented x3 - Psychiatric Exam Psychiatric exam: Normal Affect, Normal Mood - Skin Skin Exam: Dry, Intact (multiple well healed pinpoint circular scars over antecubital fossa ), Normal Color, Warm Discharge Plan - Discharge Medications Prescriptions: Amoxicillin/Clavulanate [Augmentin 875 MG-125 MG] 1 tab PO BID #10 tab Azithromycin [Zithromax] 500 mg PO DAILY #5 tab - Follow Up Plan Condition: STABLE Disposition: HOME/ ROUTINE Instructions: Amoxicillin/Clavulanate Potassium (By mouth), Azithromycin (By mouth), Urinary Tract Infection in Men (DC), Fever in Adults (GEN), Pneumonia ( DC) Additional Instructions: Patient medically stable for discharge as per Dr. Roman. Please follow up with your primary care physician- Dr. Bedoya- within 1 week after discharge from hospital. Please strongly consider outpatient rehab/detox as discussed by Dr. Noonan. Please take your antibiotics as prescribed, eat yogurt or take an over the counter probiotic each day you take them, as they can cause diarrhea. Please return to hospital if you have a recurrence of symptoms. Referrals: Keagan Noonan MD [Staff Provider] - <Rogerio Roman - Last Filed: 01/11/17 16:38> Provider - Provider Date of Admission: 01/09/17 18:23 Attending physician: Rogerio Roman MD Hospital Course - Lab Results Lab Results: Most Recent Lab Values WBC 2.5 K/uL (4.8-10.8) L 01/11/17 08:02 RBC 4.55 Mil/uL (4.40-5.90) 01/11/17 08:02 Hgb 12.4 g/dL (12.0-18.0) 01/11/17 08:02 Hct 37.4 % (35.0-51.0) 01/11/17 08:02 MCV 82.3 fL (80.0-94.0) 01/11/17 08:02 MCH 27.2 pg (27.0-31.0) 01/11/17 08:02 MCHC 33.1 g/dL (33.0-37.0) 01/11/17 08:02 RDW 15.4 % (11.5-14.5) H 01/11/17 08:02 Plt Count 118 K/uL (130-400) L 01/11/17 08:02 MPV 7.9 fL (7.2-11.7) 01/11/17 08:02 Neut % (Auto) 32.7 % (50.0-75.0) L 01/11/17 08:02 Lymph % (Auto) 50.1 % (20.0-40.0) H 01/11/17 08:02 [place] % (Auto) 12.2 % (0.0-10.0) H 01/11/17 08:02 Eos % (Auto) 4.8 % (0.0-4.0) H 01/11/17 08:02 Baso % (Auto) 0.2 % (0.0-2.0) 01/11/17 08:02 Neut # 0.8 K/uL (1.8-7.0) L 01/11/17 08:02 Lymph # 1.2 K/uL (1.0-4.3) 01/11/17 08:02 [place] # 0.3 K/uL (0.0-0.8) 01/11/17 08:02 Eos # 0.1 K/uL (0.0-0.7) 01/11/17 08:02 Baso # 0.0 K/uL (0.0-0.2) 01/11/17 08:02 Neutrophils % (Manual) 83 % (50-75) H 01/09/17 15:35 Band Neutrophils % 7 % (0-2) H 01/09/17 15:35 Lymphocytes % (Manual) 4 % (20-40) L 01/09/17 15:35 Monocytes % (Manual) 6 % (0-10) 01/09/17 15:35 Differential Comment 01/10/17 07:15 Platelet Estimate Normal (NORMAL) 01/09/17 15:35 Hypochromasia (manual) Slight 01/09/17 15:35 Microcytosis (manual) Slight 01/09/17 15:35 Ovalocytes Slight 01/09/17 15:35 APTT 35 SECONDS (21-34) H 01/10/17 07:15 Sodium 142 mmol/L (132-148) 01/11/17 08:02 Potassium 3.8 mmol/L (3.6-5.2) 01/11/17 08:02 Chloride 108 mmol/L (98-107) H 01/11/17 08:02 Carbon Dioxide 24 mmol/L (22-30) 01/11/17 08:02 Anion Gap 14 (10-20) 01/11/17 08:02 BUN 7 mg/dL (9-20) L 01/11/17 08:02 Creatinine 0.8 MG/DL (0.8-1.5) 01/11/17 08:02 Est GFR ( Amer) > 60 01/11/17 08:02 Est GFR (Non-Af Amer) > 60 01/11/17 08:02 Random Glucose 62 mg/dL (75-110) L 01/11/17 08:02 Lactic Acid 0.8 mmol/L (0.7-2.1) 01/09/17 15:35 Calcium 7.7 mg/dl (8.6-10.4) L 01/11/17 08:02 Total Bilirubin 0.3 mg/dL (0.2-1.3) 01/11/17 08:02 AST 29 U/L (17-59) 01/11/17 08:02 ALT 29 U/L (21-72) 01/11/17 08:02 Alkaline Phosphatase 39 U/L (38-126) 01/11/17 08:02 Total Protein 5.6 g/dL (6.3-8.3) L 01/11/17 08:02 Albumin 3.2 g/dL (3.5-5.0) L 01/11/17 08:02 Globulin 2.4 gm/dL (2.2-3.9) 01/11/17 08:02 Albumin/Globulin Ratio 1.3 (1.0-2.1) 01/11/17 08:02 Urine Color Yellow (YELLOW) 01/09/17 16:49 Urine Clarity Hazy (Clear) 01/09/17 16:49 Urine pH 6.0 (5.0-8.0) 01/09/17 16:49 Ur Specific [place] 1.010 (1.003-1.030) 01/09/17 16:49 Urine Protein 2+ mg/dL (NEGATIVE) H 01/09/17 16:49 Urine Glucose (UA) Normal mg/dL (Normal) 01/09/17 16:49 Urine Ketones Negative mg/dL (NEGATIVE) 01/09/17 16:49 Urine Blood 1+ (NEGATIVE) H 01/09/17 16:49 Urine Nitrate Positive (NEGATIVE) H 01/09/17 16:49 Urine Bilirubin Negative (NEGATIVE) 01/09/17 16:49 Urine Urobilinogen Normal mg/dL (0.2-1.0) 01/09/17 16:49 Ur Leukocyte Esterase 3+ Estella/uL (Negative) H 01/09/17 16:49 Urine WBC (Auto) 201 /hpf (0-5) H 01/09/17 16:49 Urine RBC (Auto) 8 /hpf (0-3) H 01/09/17 16:49 Ur Squamous Epith Cells < 1 /hpf (0-5) 01/09/17 16:49 Urine Bacteria Mod (<OCC) H 01/09/17 16:49 Hepatitis A IgM Ab Negative (NEGATIVE) 01/10/17 14:25 Hep Bs Antigen Negative (NEGATIVE) 01/10/17 14:25 Hep B Core IgM Ab Negative (NEGATIVE) 01/10/17 14:25 Hepatitis C Antibody Negative (NEGATIVE) 01/10/17 14:25 HIV 1&2 Antibody Screen Negative (NEGATIVE) 01/11/17 11:02 Attending/Attestation - Attestation I have personally seen and examined this patient.: Yes I have fully participated in the care of the patient.: Yes I have reviewed all pertinent clinical information, including history, physical exam and plan: Yes Notes (Text): 01/11/17 16:37 Patient was seen and examined at bedside with the resident today Patient is feeling much better We started the patient on oral antibiotics We will discharge the patient to home Discharge plan discussed with the patient and he verbalized understanding. I agree with the above discharge note by the resident.
[2017-01-12] MEDS ORDERED: Pneumococcal 23-Valent Vaccine SC ONE (10:00)
== END 2017-01-11 15:30 | disposition home or self-care (01) | DRG 320 ==
LOC: C.ER 14:00 → C.9E 18:23 → C.3T 21:58
PROVIDERS: ADMIT Internal Medicine; ATTEND Internal Medicine
DX: N39.0 Urinary tract infection, site not specified (principal); F33.2 Major depressive disorder, recurrent severe without psychotic features; F11.23 Opioid dependence with withdrawal; F14.10 Cocaine abuse, uncomplicated

== ENCOUNTER 2017-01-15 18:07 | Emergency (ER) | payer MEDICAID ==
[2017-01-15 18:08] VITALS: BMI 31.0
[2017-01-15] MEDS ORDERED: Sodium Chloride 0.9% 1,000 ML IV ONE (21:02)
[2017-01-15 21:56] LABS: BASO % 0.2 % (0.0-2.0); EOS # 0.2 K/uL (0.0-0.7); HEMATOCRIT 44.4 % (35.0-51.0); LYMPH # 1.8 K/uL (1.0-4.3); LYMPH % 25.2 % (20.0-40.0); MEAN CELL VOLUME 81.8 fL (80.0-94.0); MEAN CORPUSCULAR HEMOGLOBIN 27.3 pg (27.0-31.0); MEAN CORPUSCULAR HGB CONC 33.4 g/dL (33.0-37.0); MONO # 0.6 K/uL (0.0-0.8); RED CELL DISTRIBUTION WIDTH 14.8 % (11.5-14.5); WHITE BLOOD COUNT 7.1 K/uL (4.8-10.8)
[2017-01-15 22:08] LABS: CHLORIDE 102 mmol/L (98-107); POTASSIUM 4.2 mmol/L (3.6-5.2); SODIUM 143 mmol/L (132-148)
[2017-01-15 22:10] LABS: AST/SGOT 66 U/L (17-59); BILIRUBIN,TOTAL 1.5 mg/dL (0.2-1.3); CARBON DIOXIDE 26 mmol/L (22-30); GFR AFRICAN-AMERICAN > 60
[2017-01-15 22:11] LABS: ALB/GLOB RATIO 1.5 (1.0-2.1); ALKALINE PHOSPHATASE 47 U/L (38-126); ALT/SGPT 42 U/L (21-72); BLOOD UREA NITROGEN 10 mg/dL (9-20); GLUCOSE,RANDOM 82 mg/dL (75-110); TOTAL PROTEIN 7.7 g/dL (6.3-8.3)
--- NOTE | 2017-01-15 22:41 | C.PDOC ---
History Of Present Illness 26 year old patient, with a past medical history of anxiety and depression, presents to the ED complaining of feeling lethargic and having a poor appetite. Patient was admitted on 01/11/17 for fever of unknown origin. He was given IV antibiotics for 2 days. He was discharged home with Augmentin BID which he completed today. No PPI's prescribed for Augmentin. 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 Patient denies shortness of breath, suicidal/homicidal ideation, or any other complaints at this time. Patient's mother is at bedside. pt's mother claims he spent most of the prostrate on the floor of his Aunt's house feeling miserable claims to have not eaten for a week since discharge from claim to be calling Kelley (structural iron worker) daily for detox availability but without adequate response. Obscene and Foul language used describing the [employer] Staff and their efforts to assist this patient. Time Seen by Provider: 01/15/17 20:53 Chief Complaint (Nursing): Abdominal Pain History Per: Patient, Family History/Exam Limitations: no limitations Onset/Duration Of Symptoms: Days (few) Current Symptoms Are (Timing): Still Present Context: Other Severity: Mild Pain Scale Rating Of: 3 Radiation Of Pain To:: None Quality Of Discomfort: "Pain" Associated Symptoms: Loss Of Appetite Exacerbating Factors: None Alleviating Factors: None Last Bowel Movement: Today Recent travel outside of the [place]: No Past Medical History Reviewed: Historical Data, Nursing Documentation, Vital Signs Vital Signs: Last Vital Signs Temp 98.2 F 01/15/17 23:40 Pulse 81 01/15/17 23:40 Resp 14 01/15/17 23:40 BP 120/80 01/15/17 23:40 Pulse Ox 100 01/16/17 00:56 - Medical History PMH: Anxiety, Depression - [facility] Procedures DETOXIFICATION SERVICES FOR SUBSTANCE ABUSE TREATMENT (06/13/16) GROUP SENSITOMETRIST FOR SUBSTANCE ABUSE TREATMENT, PSYCHOEDUCATION (05/13/16) MEDICATION MANAGEMENT (06/13/16) Family History: States: Unknown Family Hx - Social History Hx Tobacco Use: Yes Hx Alcohol Use: No Hx Substance Use: Yes (heroin iv) - Immunization History Hx Tetanus Toxoid Vaccination: No Hx Influenza Vaccination: No Hx Pneumococcal Vaccination: No Review Of Systems Except As Marked, All Systems Reviewed And Found Negative. Constitutional: Positive for: Other (loss of appetite, feeling lethargic) Respiratory: Negative for: Shortness of Breath Psych: Negative for: Suicidal ideation Physical Exam - Physical Exam Appears: Non-toxic, No Acute Distress Skin: Warm, Dry Head: Atraumatic, Normacephalic Eye(s): bilateral: Other (dilated pupils) Neck: Normal ROM, Supple Chest: Symmetrical Cardiovascular: Rhythm Regular, Other (no G/R/M) Respiratory: Normal Breath Sounds, No Rales, No Rhonchi, No Wheezing Gastrointestinal/Abdominal: Soft, No Tenderness Back: Normal Inspection, No CVA Tenderness Extremity: Normal ROM Neurological/Psych: Oriented x3, Normal Motor, Normal Sensation Gait: Steady ED Course And Treatment - Laboratory Results Result Diagrams: 01/15/17 21:49 01/15/17 21:49 Lab Interpretation: Normal O2 Sat by Pulse Oximetry: 100 (RA) Pulse Ox Interpretation: Normal Progress Note: Plan: EKG, Labs, Obstructive Series, Pepcid, Zofran, IV fluids, Toradol Medical Decision Making Medical Decision Making: after extensive time pt cannot/will not provide UA, though h/o UTI Normal WBC's argues against UTI/Pyelo No further fevers. considering Augmentin BID for 5 days, may be GI upset normal labs and normal BUN/Creat suggest appropriate hydration status. Recommend Pepcid PO BID and Zofran for nausea (as given in ED) and outpatient f /u. 2330: upon discharge pt became verbally abusive to this MD and staff Pt sprung from the [facility] with impressive athletic ability grabbed his belongings in an agressive hostile fashion and dressed himself quickly and walked briskly from the ED as escorted by Security. LOW suspicion of endocarditis, though symptoms usually vague will usually include fever, this pt with no leukocytosis nor fever. Cardiac exam without murmur. Consider malingering as pt with ongoing heroine abuse which seems enabled by parent at bedside, insisting the pt's symptoms are not related to his heroine abuse, though when pt denied an alternate explanation (would not provide urine sample for analysis) nor admission for Detox (not available) pt's prostrate "can 't even walk to the car" symptoms spontaneously resolved and pt became agressive , menacing, and instantly athletically mobile and in fact nimbly ambulatory, arguing against insidious occult medical illness which defies detection with laboratory analysis and physical exam. Disposition Doctor Will See Patient In The: Office Counseled Patient/Family Regarding: Studies Performed, Diagnosis - Disposition Referrals: Alcoholics Anonymous [Outside] [facility]Outside[facility] Disposition: HOME/ ROUTINE Disposition Time: 23:30 Condition: GOOD Additional Instructions: pepcid 20 mg twice a day (9A and 9P) to lower stomach acid and stomach irritation Zofran ODT 4 mg (dissolves in the mouth) for nausea, once every 6-8 hours as needed. drink plenty of fluids Seek outpatient heroine detox programs. Call our [facility] Detox program after 9AM for availability. Prescriptions: Ondansetron ODT [Zofran ODT] 4 mg PO Q6H PRN #6 odt PRN Reason: vomiting Instructions: Acute Nausea and Vomiting (ED) - Clinical Impression Clinical Impression: Nausea, Heroin abuse - Scribe Statement The provider has reviewed the documentation as recorded by the Scribdevora Forde Provider Attestation: All medical record entries made by the Scribe were at my direction and personally dictated by me. I have reviewed the chart and agree that the record accurately reflects my personal performance of the history, physical exam, medical decision making, and the department course for this patient. I have also personally directed, reviewed, and agree with the discharge instructions and disposition.
[2017-01-15 23:42] VITALS: BP 120/80; PULSE 81; RESP 14; TEMP 98.2
[2017-01-16 00:52] VITALS: O2SAT 100
--- NOTE | 2017-01-16 11:46 | RAD ---
PROCEDURE: Radiographs of the chest and abdomen (obstructive series) HISTORY: vague abd discomfort COMPARISON: Chest x-ray performed 01/09/17 FINDINGS: CHEST: The cardiomediastinal silhouette appears within normal limits of size. No focal consolidation, significant pleural effusion, or definite pneumothorax identified.Please note that chest x-ray has limited sensitivity for the detection of pulmonary masses. ABDOMEN AND PELVIS: Nonobstructive bowel gas pattern. No definite free air. No acute osseous abnormality is detected. IMPRESSION: Unremarkable radiographs of chest and abdomen. No evidence of mechanical bowel obstruction.
== END 2017-01-15 23:43 | disposition home or self-care (01) ==
LOC: C.ER 18:07
DX: F11.10 Opioid abuse, uncomplicated (principal); R11.0 Nausea

== ENCOUNTER 2017-01-31 21:00 | Observation (INO) | payer MEDICAID ==
[2017-01-31 21:00] VITALS: BMI 31.0
[2017-01-31] MEDS ORDERED: Sodium Chloride 0.9% 1,000 ML IV ONE ×2 (21:49→23:59)
--- NOTE | 2017-01-31 21:55 | C.PDOC ---
History Of Present Illness Patient is a 26 year old male who presents to the ER with a complaint of feeling sick since this morning with fever, vomiting, abdominal pain, and generalized body aches. Patient reports he has been an IV drug user for the past 7 years and reports his last use was this morning. Patient's mother states he has been coughing, however, patient denies any respiratory complaints. Patient denies diarrhea, chest pain, or SOB. Time Seen by Provider: 01/31/17 21:40 Chief Complaint (Nursing): Fever History Per: Patient History/Exam Limitations: no limitations Onset/Duration Of Symptoms: Hrs Current Symptoms Are (Timing): Still Present Location Of Pain: Diffuse Myalgias, Other (Abdominal pain) Sick Contacts (Context): None Associated Symptoms: Fever, Myalgias, Vomiting, Diarrhea, Other (Abdominal pain) . denies: Nausea Recent travel outside of the [place]: No Additional History Per: Family Past Medical History Reviewed: Historical Data, Nursing Documentation, Vital Signs Vital Signs: Last Vital Signs Temp 99.8 F H 01/31/17 22:30 Pulse 104 H 01/31/17 22:30 Resp 18 01/31/17 22:30 BP 95/55 L 01/31/17 22:30 Pulse Ox 97 01/31/17 22:30 - Medical History PMH: Anxiety, Depression Surgical History: No Surg Hx - [facility] Procedures DETOXIFICATION SERVICES FOR SUBSTANCE ABUSE TREATMENT (01/20/17) GROUP PHARMACY BENEFIT MANAGER FOR SUBSTANCE ABUSE TREATMENT, PSYCHOEDUCATION (05/13/16) INDIV PHARMACY BENEFIT MANAGER FOR SUBSTANCE ABUSE TREATMENT, PSYCHOEDUCATION (01/20/17) INDIV PHARMACY BENEFIT MANAGER FOR SUBSTANCE ABUSE, COGNITIVE BEHAVIORAL (01/20/17) INDIV PSYCHOTHERAPY FOR SUBSTANCE ABUSE TREATMENT, SUPPORT (01/20/17) MEDICATION MANAGEMENT (06/13/16) Family History: States: Unknown Family Hx - Social History Hx Tobacco Use: Yes Hx Alcohol Use: Yes Hx Substance Use: Yes (heroin iv) - Immunization History Hx Tetanus Toxoid Vaccination: No Hx Influenza Vaccination: No Hx Pneumococcal Vaccination: No Review Of Systems Constitutional: Positive for: Fever. Negative for: Chills Cardiovascular: Negative for: Chest Pain Respiratory: Negative for: Shortness of Breath Gastrointestinal: Positive for: Vomiting, Abdominal Pain. Negative for: Diarrhea Musculoskeletal: Positive for: Other (Generalized body aches) Physical Exam - Physical Exam Appears: Non-toxic, Other (Uncomfortable) Skin: Normal Color, Warm, Dry, Other (Multiple track vargas on arm. No cellulitis.) Head: Atraumatic, Normacephalic Nose: Normal, No Discharge Oral Mucosa: Moist Throat: Normal, No Erythema, No Exudate Chest: Symmetrical, No Tenderness Cardiovascular: Rhythm Regular (Tachycardic), No Murmur Respiratory: Normal Breath Sounds, No Rales, Rhonchi (Coarse right base), No Wheezing Gastrointestinal/Abdominal: Soft, No Tenderness Neurological/Psych: Oriented x3, Normal Speech, Normal Cognition ED Course And Treatment - Laboratory Results Result Diagrams: 01/31/17 21:58 01/31/17 21:58 Lab Interpretation: No Acute Changes O2 Sat by Pulse Oximetry: 98 (Room air) Pulse Ox Interpretation: Normal - Radiology CXR: Interpreted by Me CXR Interpretation: Yes: No Acute Disease Reevaluation Time: 00:23 Reassessment Condition: Improved (Fever improved but patient remains tachycardic with BP 99/65.) - Physician Consult Information Time Consulting Physician Contacted: 00:23 Physician Contacted: Onel Howard Outcome Of Conversation: Patient with history of IV heroin abuse to be admitted with fever without obvious focus of infection. Medical Decision Making Medical Decision Making: Plan: * Blood work * CXR * Urinalysis * Tylenol * Catapres * IV fluids Disposition - Disposition Disposition: HOSPITALIZED Disposition Time: 00:34 Condition: SERIOUS - POA Present On Arrival: None - Clinical Impression Clinical Impression: Fever, Heroin abuse, Opioid use disorder, severe, dependence - Scribe Statement The provider has reviewed the documentation as recorded by the Scribdevora Fernandes All medical record entries made by the Siriibdevora were at my direction and personally dictated by me. I have reviewed the chart and agree that the record accurately reflects my personal performance of the history, physical exam, medical decision making, and the department course for this patient. I have also personally directed, reviewed, and agree with the discharge instructions and disposition.
[2017-01-31 22:03] LABS: BASO % 0.2 % (0.0-2.0); EOS % 0.4 % (0.0-4.0); HEMATOCRIT 43.9 % (35.0-51.0); LYMPH # 0.6 K/uL (1.0-4.3); LYMPH % 8.4 % (20.0-40.0); MEAN CELL VOLUME 81.4 fL (80.0-94.0); MEAN CORPUSCULAR HEMOGLOBIN 27.2 pg (27.0-31.0); MEAN CORPUSCULAR HGB CONC 33.4 g/dL (33.0-37.0); MEAN PLATELET VOLUME 7.7 fL (7.2-11.7); MONO # 0.6 K/uL (0.0-0.8); PLATELET COUNT 145 K/uL (130-400); WHITE BLOOD COUNT 7.8 K/uL (4.8-10.8)
[2017-01-31 22:09] LABS: VENOUS BLOOD GAS BASE EXCESS -0.3 mmol/L (0.0-2.0); VENOUS BLOOD GAS PCO2 32 mmHg (40-60); VENOUS BLOOD PH 7.46 (7.32-7.43)
[2017-01-31 22:10] LABS: CHLORIDE 100 mmol/L (98-107); SODIUM 136 mmol/L (132-148)
[2017-01-31 22:11] LABS: POTASSIUM 3.5 mmol/L (3.6-5.2)
[2017-01-31 22:13] LABS: ALB/GLOB RATIO 1.6 (1.0-2.1); ALKALINE PHOSPHATASE 58 U/L (38-126); AST/SGOT 61 U/L (17-59); BILIRUBIN,TOTAL 0.9 mg/dL (0.2-1.3); BLOOD UREA NITROGEN 11 mg/dL (9-20); CARBON DIOXIDE 22 mmol/L (22-30); GFR AFRICAN-AMERICAN > 60; GLUCOSE,RANDOM 96 mg/dL (75-110); TOTAL PROTEIN 7.3 g/dL (6.3-8.3)
[2017-01-31 22:14] LABS: ALCOHOL SERUM < 10 mg/dl (0-10); ALT/SGPT 63 U/L (21-72); CALCIUM 8.9 mg/dl (8.6-10.4)
[2017-01-31 22:29] LABS: NEUTROPHIL 84 % (50-75); TOTAL CELLS COUNTED 100
[2017-02-01] MEDS ORDERED: Piperacillin/Tazobact 3.375 gm 100 ML IV STA (00:10)
[2017-02-01] MEDS ORDERED: Piperacillin/Tazobact 3.375 gm 100 ML IVPB ONE (00:18)
[2017-02-01] MEDS ORDERED: Azithromycin 500mg/250ML NS 0 MG/0 ML BAG IVPB ONE (00:18)
[2017-02-01] MEDS: Dextrose 5%/0.45% NS 1,000 ML IV SCH ×3 (01:55→17:25)
[2017-02-01 04:21] VITALS: RESP 20
[2017-02-01 08:13] LABS: BASO % 0.3 % (0.0-2.0); EOS # 0.1 K/uL (0.0-0.7); EOS % 1.6 % (0.0-4.0); HEMATOCRIT 36.4 % (35.0-51.0); LYMPH % 18.2 % (20.0-40.0); MEAN CELL VOLUME 81.4 fL (80.0-94.0); MEAN CORPUSCULAR HEMOGLOBIN 27.5 pg (27.0-31.0); MEAN CORPUSCULAR HGB CONC 33.8 g/dL (33.0-37.0); MEAN PLATELET VOLUME 7.9 fL (7.2-11.7); MONO # 0.5 K/uL (0.0-0.8); RED CELL DISTRIBUTION WIDTH 15.6 % (11.5-14.5); WHITE BLOOD COUNT 5.5 K/uL (4.8-10.8)
[2017-02-01 08:15] LABS: CHLORIDE 107 mmol/L (98-107)
[2017-02-01 08:16] LABS: POTASSIUM 3.5 mmol/L (3.6-5.2); SODIUM 139 mmol/L (132-148)
[2017-02-01 08:17] LABS: URINE BILIRUBIN NEGATIVE (NEGATIVE); URINE BLOOD NEGATIVE (NEGATIVE); URINE COLOR Yellow (YELLOW); URINE GLUCOSE (UA) NORMAL (Normal); URINE KETONE NEGATIVE (NEGATIVE); URINE LEUKOCYTE ESTERASE NEG Leu/uL (Negative); URINE PROTEIN NEGATIVE (NEGATIVE); URINE UROBILINOGEN NORMAL mg/dL (0.2-1.0); WBC URINE < 1 /hpf (0-5)
[2017-02-01 08:18] LABS: ALB/GLOB RATIO 1.3 (1.0-2.1); ALKALINE PHOSPHATASE 44 U/L (38-126); ALT/SGPT 50 U/L (21-72); AST/SGOT 39 U/L (17-59); BILIRUBIN,TOTAL 0.7 mg/dL (0.2-1.3); CARBON DIOXIDE 25 mmol/L (22-30); GFR AFRICAN-AMERICAN > 60; TOTAL PROTEIN 5.4 g/dL (6.3-8.3)
[2017-02-01 08:19] LABS: BLOOD UREA NITROGEN 9 mg/dL (9-20); CALCIUM 7.3 mg/dl (8.6-10.4); GLUCOSE,RANDOM 92 mg/dL (75-110)
--- NOTE | 2017-02-01 08:40 | RAD ---
PROCEDURE: CHEST RADIOGRAPH, 1 VIEW HISTORY: SOB COMPARISON: 01/09/2017 FINDINGS: LUNGS: Mild venous congestion. Right hilar prominence. PLEURA: No pneumothorax or pleural fluid seen. CARDIOVASCULAR: Normal. OSSEOUS STRUCTURES: No significant abnormalities. VISUALIZED UPPER ABDOMEN: Normal. OTHER FINDINGS: None. IMPRESSION: Mild venous congestion. Right hilar prominence.
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
[2017-02-01] MEDS: cefTRIAXone IV 1 gm in Dextros 50 ML IVPB SCH (11:32)
--- NOTE | 2017-02-01 13:32 | CP.PCM.HP ---
History of Present Illness - History of Present Illness History of Present Illness: COMPREHENSIVE HISTORY & PHYSICAL EXAM HPI Patient is a 26 year old male who presents to the ER with a complaint of feeling sick since this morning with fever, vomiting, abdominal pain, and generalized body aches. Patient reports he has been an IV drug user for the past 7 years and reports his last use was this morning. PAST HIST. MULTIPLE PSYCHOTHERAPY FOR DRUG ADDICTION 01/15 FOR UTI PERSONAL HIST: Smoking. Y Alcohol. Y Allergy N Travel_- . FAMILY HIST : ROS : Constitutional FEVER Eyes: Negative for redness, swelling, itching, discharge, vision changes, blurry vision, double vision, glaucoma, cataracts, Ears: Negative for hearing loss, ringing, , tinnitus, vertigo Nose: Negative for rhinorrhea, stuffiness, sniffing, itching, postnasal drip, discoloration, nasal congestion and epistaxis. Throat: Negative for throat clearing, sore throat, hoarseness, difficulty swallowing and difficulty speaking. Respiratory: Negative for cough, chest tightness, sputum or phlegm, chronic cough, hemoptysis, wheezing, snoring at night, pleuritic chest pain and daytime somnolence. Cardiovascular: Negative for chest pain, palpitations, orthopnea, PND, Edema of legs, leg cramps, angina, claudication, , irregular heartbeat, Neurology: Negative for irritability, muscle weakness, numbness and tingling, seizures, tremors, migraines, slurred speech, syncope, memory loss, mood changes , recurrent headaches GastrointestinalN/V ABD PAIN Genitourinary: Negative for frequent urination, hematuria, discharge, incontinence, urinary retention, frequent UTI, Psychiatric: Negative for depression, anxiety/panic, suicidal tendencies, Musculoskeletal: Negative for swollen joints, back pain, , neck pain, morning stiffness of joints, . Skin: Negative for rash, ulcers, itching, dry skin and pigmented lesions. P/E: Constitutional: Appears stated age and in no apparent distress. Head: Normocephalic. Ears: External ear canals patent without inflammation. Tympanic membranes intact with normal light reflex and landmark. Eyes: Pupils are central, bilaterally equal, symmetrical and reacts to light with normal movements and no icterus or pallor. Nose: External nares are patent. Mucosa is pink Mouth-Throat: Good general appearance and condition. No post-pharyngeal/oropharyngeal erythema and tonsillar hypertrophy. Good dental hygiene. Neck-Lymphatic: Neck is supple with normal ROM, no thyromegaly, lymph nodes or masses. JVD is normal with no carotid bruit. Lungs: Clear to percussion and auscultation with bilateral normal air entry. Cardiovascular: S1 and S2 are normal with no murmurs, gallops and rub. GI Exam: No hepatomegaly. Abdomen is soft and non-tender. No Organomegaly , masses or hernias are evident and bowel sounds are normal and active. Neurology: Higher function and all cranial nerves intact, with no gross motor or sensory deficit. Superficial and deep reflexes are normal with downwards planters. No cerebellar deficit with normal gait. Musculoskeletal: No tender spots with normal curvature of the spine with no swelling or restricted ROM of the small and large joints. Extremities: Homans sign absent. Intact pulses with no pitting edema, calf tenderness or skin color changes. Skin: No rash, eruptions or abnormal skin pigmentation LAB/RADIOLOGY: ASSESMENT : IVDA HEROIN FEVER ? SEPSIS ? WITHDRAWL PLAN: SEPTIC W/U PSYCH. EVAL Present on Admission - Present on Admission Any Indicators Present on Admission: No Past Patient History - Infectious Disease Hx of Infectious Diseases: None - Past Medical History & Family History Past Medical History?: Yes - Past Social History Smoking Status: Current Some Days Smoker - CARDIAC Hx Cardiac Disorders: No Hx Hypertension: No - PULMONARY Hx Respiratory Disorders: No Hx Tuberculosis: No - NEUROLOGICAL Hx Neurological Disorder: No Hx Seizures: No - HEENT Hx HEENT Problems: No - RENAL Hx Chronic Kidney Disease: No - ENDOCRINE/METABOLIC Hx Endocrine Disorders: No - HEMATOLOGICAL/ONCOLOGICAL Hx Blood Disorders: No Hx Human Immunodeficiency Virus (HIV): No - INTEGUMENTARY Hx Dermatological Problems: No - MUSCULOSKELETAL/RHEUMATOLOGICAL Hx Musculoskeletal Disorders: No Hx Falls: Yes - GASTROINTESTINAL Hx Gastrointestinal Disorders: No - GENITOURINARY/GYNECOLOGICAL Hx Genitourinary Disorders: No Hx Sexually Transmitted Disorders: No - PSYCHIATRIC Hx Psychophysiologic Disorder: Yes Hx Anxiety: Yes Hx Depression: Yes Hx Substance Use: Yes (heroin iv) - SURGICAL HISTORY Hx Surgeries: No - ANESTHESIA Hx Anesthesia: No Hx Anesthesia Reactions: No Hx Malignant Hyperthermia: No Has any member of the family had a problem w/ anesthesia?: No Meds Allergies/Adverse Reactions: Allergies Allergy/AdvReac Type Severity Reaction Status Date / Time buprenorphine Allergy Verified 01/20/17 18:23 buprenorphine HCl Allergy Verified 01/20/17 18:23 [From Suboxone] naloxone HCl [From Suboxone] Allergy Verified 01/20/17 18:23 Results - Vital Signs Recent Vital Signs: Last Vital Signs Temp 97.8 F 02/01/17 08:39 Pulse 72 02/01/17 08:39 Resp 20 02/01/17 08:39 BP 115/71 02/01/17 08:39 Pulse Ox 97 02/01/17 08:39 - Labs Result Diagrams: 02/01/17 07:47 02/01/17 07:47 Labs: Laboratory Results - last 24 hr 02/01/17 02/01/17 02/01/17 07:47 07:47 07:58 WBC 5.5 RBC 4.47 Hgb 12.3 D Hct 36.4 MCV 81.4 MCH 27.5 MCHC 33.8 RDW 15.6 H Plt Count 128 L MPV 7.9 Neut % (Auto) 69.9 Lymph % (Auto) 18.2 L Mason % (Auto) 10.0 Eos % (Auto) 1.6 Baso % (Auto) 0.3 Neut # 3.8 Lymph # 1.0 Mason # 0.5 Eos # 0.1 Baso # 0.0 Sodium 139 Potassium 3.5 L Chloride 107 Carbon Dioxide 25 Anion Gap 11 BUN 9 Creatinine 0.9 Est GFR ( Amer) > 60 Est GFR (Non-Af Amer) > 60 Random Glucose 92 Calcium 7.3 L Total Bilirubin 0.7 AST 39 ALT 50 Alkaline Phosphatase 44 Total Protein 5.4 L Albumin 3.1 L D Globulin 2.3 Albumin/Globulin Ratio 1.3 Urine Color Yellow Urine Clarity Clear Urine pH 6.0 Ur Specific [place] 1.012 Urine Protein Negative Urine Glucose (UA) Normal Urine Ketones Negative Urine Blood Negative Urine Nitrate Negative Urine Bilirubin Negative Urine Urobilinogen Normal Ur Leukocyte Esterase Neg Urine WBC (Auto) < 1 Urine Opiates Screen Urine Methadone Screen Ur Barbiturates Screen Ur Phencyclidine Scrn Ur Amphetamines Screen U Benzodiazepines Scrn U Oth Cocaine Metabols U Cannabinoids Screen 02/01/17 07:58 WBC RBC Hgb Hct MCV MCH MCHC RDW Plt Count MPV Neut % (Auto) Lymph % (Auto) Mason % (Auto) Eos % (Auto) Baso % (Auto) Neut # Lymph # Mason # Eos # Baso # Sodium Potassium Chloride Carbon Dioxide Anion Gap BUN Creatinine Est GFR ( Amer) Est GFR (Non-Af Amer) Random Glucose Calcium Total Bilirubin AST ALT Alkaline Phosphatase Total Protein Albumin Globulin Albumin/Globulin Ratio Urine Color Urine Clarity Urine pH Ur Specific [place] Urine Protein Urine Glucose (UA) Urine Ketones Urine Blood Urine Nitrate Urine Bilirubin Urine Urobilinogen Ur Leukocyte Esterase Urine WBC (Auto) Urine Opiates Screen Positive Urine Methadone Screen Negative Ur Barbiturates Screen Negative Ur Phencyclidine Scrn Negative Ur Amphetamines Screen Negative U Benzodiazepines Scrn Negative U Oth Cocaine Metabols Negative U Cannabinoids Screen Negative
[2017-02-02] MEDS: Dextrose 5%/0.45% NS 1,000 ML IV SCH ×2 (01:45→11:53)
[2017-02-02 07:15] VITALS: O2SAT 97
[2017-02-02 07:24] LABS: BASO % 0.3 % (0.0-2.0); EOS # 0.2 K/uL (0.0-0.7); EOS % 4.1 % (0.0-4.0); HEMATOCRIT 37.9 % (35.0-51.0); LYMPH # 1.4 K/uL (1.0-4.3); LYMPH % 30.5 % (20.0-40.0); MEAN CELL VOLUME 81.4 fL (80.0-94.0); MEAN CORPUSCULAR HEMOGLOBIN 27.5 pg (27.0-31.0); MEAN CORPUSCULAR HGB CONC 33.7 g/dL (33.0-37.0); MEAN PLATELET VOLUME 7.8 fL (7.2-11.7); MONO # 0.6 K/uL (0.0-0.8); MONO % 11.9 % (0.0-10.0); NRBC % 0.1 % (0.0-2.0); RED CELL DISTRIBUTION WIDTH 15.7 % (11.5-14.5); WHITE BLOOD COUNT 4.7 K/uL (4.8-10.8)
[2017-02-02 07:42] LABS: CHLORIDE 107 mmol/L (98-107)
[2017-02-02 07:43] LABS: POTASSIUM 3.7 mmol/L (3.6-5.2); SODIUM 144 mmol/L (132-148)
[2017-02-02 07:45] LABS: ALB/GLOB RATIO 1.4 (1.0-2.1); ALKALINE PHOSPHATASE 50 U/L (38-126); ALT/SGPT 43 U/L (21-72); AST/SGOT 31 U/L (17-59); BILIRUBIN,TOTAL 0.7 mg/dL (0.2-1.3); BLOOD UREA NITROGEN 8 mg/dL (9-20); CARBON DIOXIDE 27 mmol/L (22-30); GFR AFRICAN-AMERICAN > 60; TOTAL PROTEIN 5.8 g/dL (6.3-8.3)
[2017-02-02 07:46] LABS: CALCIUM 7.9 mg/dl (8.6-10.4); GLUCOSE,RANDOM 80 mg/dL (75-110)
[2017-02-02] MEDS: cefTRIAXone IV 1 gm in Dextros 50 ML IVPB SCH (09:12)
--- NOTE | 2017-02-02 13:15 | CP.PCM.PN ---
Subjective - Date & Time of Evaluation Date of Evaluation: 02/02/17 Time of Evaluation: 13:15 - Subjective Subjective: LESS AGITATED AFEBRILE ALL SEPTIC W/U IS NEG CHECK ECHO Objective - Vital Signs/Intake and Output Vital Signs (last 24 hours): Temp Pulse Resp BP Pulse Ox 98 F 73 20 107/69 97 02/02/17 07:14 02/02/17 07:14 02/02/17 07:14 02/02/17 07:14 02/02/17 07:14 Intake and Output: 02/02/17 02/02/17 11:59 23:59 Intake Total 400 Balance 400 - Medications Medications: Current Medications Acetaminophen (Tylenol 325mg Tab) 650 mg PO Q4 PRN PRN Reason: Fever >100.4 F Clonidine HCl (Catapres) 0.1 mg PO Q6 PRN PRN Reason: Opiate reversal Gabapentin (Neurontin) 300 mg PO TID [facility] Last Admin: 02/02/17 09:11 Dose: 300 mg Ceftriaxone Sodium (Rocephin Iv 1 Gm Duplex) 50 mls @ 50 mls/30 min IVPB DAILY [facility] Last Admin: 02/02/17 09:12 Dose: 50 mls/30 min Dextrose/Sodium Chloride (Dextrose 5%/0.45% Ns 1000 Ml) 1,000 mls @ 120 mls/hr IV .Q8H20M [facility] Last Admin: 02/02/17 11:53 Dose: Not Given Methadone HCl (Methadone) 5 mg PO DAILY [facility] Stop: 02/03/17 11:00 Last Admin: 02/02/17 09:11 Dose: 5 mg Pneumococcal Polyvalent Vaccine (Pneumovax 23 Vaccine) 0.5 ml IM .ONCE ONE Stop: 02/03/17 10:01 Quetiapine Fumarate (Seroquel) 100 mg PO HS [facility] Last Admin: 02/01/17 22:00 Dose: 100 mg Sertraline HCl (Zoloft) 50 mg PO DAILY [facility] Last Admin: 02/02/17 09:11 Dose: 50 mg - Labs Labs: 02/02/17 07:17 02/02/17 07:17
--- NOTE | 2017-02-02 16:21 | CP.PCM.PN ---
Subjective - Date & Time of Evaluation Date of Evaluation: 02/02/17 Time of Evaluation: 11:00 - Subjective Subjective: Alert, awake, NAD. Objective - Vital Signs/Intake and Output Vital Signs (last 24 hours): Temp Pulse Resp BP Pulse Ox 98 F 73 20 107/69 97 02/02/17 07:14 02/02/17 07:14 02/02/17 07:14 02/02/17 07:14 02/02/17 07:14 Intake and Output: 02/02/17 02/02/17 06:59 18:59 Intake Total 700 400 Balance 700 400 - Medications Medications: Current Medications Acetaminophen (Tylenol 325mg Tab) 650 mg PO Q4 PRN PRN Reason: Fever >100.4 F Clonidine HCl (Catapres) 0.1 mg PO Q6 PRN PRN Reason: Opiate reversal Gabapentin (Neurontin) 300 mg PO TID [facility] Last Admin: 02/02/17 13:41 Dose: 300 mg Ceftriaxone Sodium (Rocephin Iv 1 Gm Duplex) 50 mls @ 50 mls/30 min IVPB DAILY [facility] Last Admin: 02/02/17 09:12 Dose: 50 mls/30 min Methadone HCl (Methadone) 5 mg PO DAILY [facility] Stop: 02/03/17 11:00 Last Admin: 02/02/17 09:11 Dose: 5 mg Pneumococcal Polyvalent Vaccine (Pneumovax 23 Vaccine) 0.5 ml IM .ONCE ONE Stop: 02/03/17 10:01 Quetiapine Fumarate (Seroquel) 100 mg PO HS [facility] Last Admin: 02/01/17 22:00 Dose: 100 mg Sertraline HCl (Zoloft) 50 mg PO DAILY [facility] Last Admin: 02/02/17 09:11 Dose: 50 mg - Labs Labs: 02/02/17 07:17 02/02/17 07:17 Assessment and Plan - Assessment and Plan (Free Text) Assessment: Patient is seen and examined. Alert and orientedx3, no fever, denies sob or chest pains. Cleared by psyche for discharge home Advised to follow up with psyche clinic across the road for follow up. D/W DR Howard.
[2017-02-02 16:34] VITALS: BP 129/89; PULSE 64; TEMP 97.1
--- NOTE | 2017-02-02 16:51 | CARD ---
APPROVED REPORT EXAM: Two-dimensional and M-mode echocardiogram with Doppler and color Doppler. Other Information Quality : GoodRhythm : INDICATION SEPSIS,FEVER, IVUD M-Mode DIMENSIONS RVDd2.92 (2.1-3.2cm)Left Atrium (MM)3.61 (2.5-4.0cm) IVSd1.01 (0.7-1.1cm)Aortic Root3.16 (2.2-3.7cm) LVDd5.62 (4.0-5.6cm)Aortic Cusp Exc.2.57 (1.5-2.0cm) PWd0.94 (0.7-1.1cm)FS (%) 34 % LVDs3.71 (2.0-3.8cm)LVEF (%)62 (>50%) Mitral Valve MV E Grimpjiu73.6cm/sMV A Znmwbxxo45.8cm/sE/A ratio1.6 TDI E/Lateral E'0.0E/Medial E'0.0 Tricuspid Valve TR Peak [id number]/sTR Peak Gr.[id number] LEFT VENTRICLE The left ventricle is normal size. There is normal left ventricular wall thickness. The left ventricular function is normal. The left ventricular ejection fraction is within the normal range. There is normal LV segmental wall motion. The left ventricular diastolic function is normal. RIGHT VENTRICLE The right ventricle is normal size. ATRIA The left atrium size is normal. The right atrium size is normal. AORTIC VALVE The aortic valve is normal in structure. MITRAL VALVE Mitral regurgitation is trace. TRICUSPID VALVE There is trace to mild tricuspid regurgitation. <Conclusion> Normal LV systolic function. Normal chamber size. Trace MR. Trace to mild TR.
[2017-02-03] MEDS ORDERED: Pneumococcal 23-Valent Vaccine IM ONE (10:00)
== END 2017-02-02 16:45 | disposition home or self-care (01) ==
LOC: C.ER 21:00 → C.3T 02-01 00:39 → INTOOBSV 02-01 00:39
PROVIDERS: ADMIT Internal Medicine Cardiovascular Disease; ATTEND Internal Medicine Cardiovascular Disease
DX: R50.9 Fever, unspecified (principal); F11.23 Opioid dependence with withdrawal; F17.210 Nicotine dependence, cigarettes, uncomplicated; F31.9 Bipolar disorder, unspecified; F41.9 Anxiety disorder, unspecified
CPT/HCPCS: 36415; 71010; 80053; 80320; 80324; 80345; 80346; 80349; 80353; 80358; 80361; 81001; 82803; 83992; 85025; 87040; 87086; 93306; 96361; 96365; 96367; 99285; G0378; J0696; J2543; J3370; J7040; J7042

== ENCOUNTER 2017-02-12 16:45 | Emergency (ER) | payer MEDICAID ==
[2017-02-12 16:46] VITALS: BMI 31.0
[2017-02-12 17:15] VITALS: O2SAT 96
[2017-02-12 19:01] LABS: BASO % 0.2 % (0.0-2.0); EOS # 0.4 K/uL (0.0-0.7); EOS % 3.9 % (0.0-4.0); HEMATOCRIT 41.1 % (35.0-51.0); LYMPH # 1.8 K/uL (1.0-4.3); LYMPH % 15.9 % (20.0-40.0); MEAN CORPUSCULAR HEMOGLOBIN 27.1 pg (27.0-31.0); MEAN CORPUSCULAR HGB CONC 33.1 g/dL (33.0-37.0); MEAN PLATELET VOLUME 6.7 fL (7.2-11.7); MONO # 0.9 K/uL (0.0-0.8); MONO % 7.7 % (0.0-10.0); RED CELL DISTRIBUTION WIDTH 15.5 % (11.5-14.5); WHITE BLOOD COUNT 11.1 K/uL (4.8-10.8)
[2017-02-12 19:13] LABS: RBC URINE 1 /hpf (0-3); URINE BILIRUBIN NEGATIVE (NEGATIVE); URINE BLOOD NEGATIVE (NEGATIVE); URINE COLOR Straw (YELLOW); URINE GLUCOSE (UA) NORMAL (Normal); URINE KETONE NEGATIVE (NEGATIVE); URINE LEUKOCYTE ESTERASE NEG Leu/uL (Negative); URINE PROTEIN NEGATIVE (NEGATIVE); URINE UROBILINOGEN NORMAL mg/dL (0.2-1.0); WBC URINE 1 /hpf (0-5)
[2017-02-12 19:23] LABS: CHLORIDE 99 mmol/L (98-107)
[2017-02-12 19:24] LABS: POTASSIUM 3.7 mmol/L (3.6-5.2); SODIUM 136 mmol/L (132-148)
[2017-02-12 19:26] LABS: ALB/GLOB RATIO 1.6 (1.0-2.1); ALKALINE PHOSPHATASE 54 U/L (38-126); AST/SGOT 17 U/L (17-59); BILIRUBIN,TOTAL 0.6 mg/dL (0.2-1.3); BLOOD UREA NITROGEN 10 mg/dL (9-20); CARBON DIOXIDE 28 mmol/L (22-30); GFR AFRICAN-AMERICAN > 60; GLUCOSE,RANDOM 89 mg/dL (75-110); TOTAL PROTEIN 6.7 g/dL (6.3-8.3)
[2017-02-12 19:27] LABS: ALCOHOL SERUM < 10 mg/dl (0-10); ALT/SGPT 27 U/L (21-72); CALCIUM 8.4 mg/dl (8.6-10.4)
--- NOTE | 2017-02-12 20:46 | C.PDOC ---
Time Seen by Provider: 02/12/17 18:00 Chief Complaint (Nursing): Psychiatric Evaluation History Per: Patient Onset/Duration Of Symptoms: Days Current Symptoms Are (Timing): Still Present Suicide/Self Injury Attempted (Context): None Modifying Factor(s): Narcotics, Cocaine Severity: Moderate Associated Symptoms: Depression. denies: Suicidal Thoughts, Suicidal Plan Additional History Per: Prior Records Past Medical History Reviewed: Historical Data, Nursing Documentation, Vital Signs Vital Signs: Last Vital Signs Temp 98.7 F 02/12/17 17:05 Pulse 86 02/12/17 17:05 Resp 20 02/12/17 17:05 BP 123/81 02/12/17 17:05 Pulse Ox 96 02/12/17 17:05 - Medical History PMH: Anxiety, Depression - [facility] Procedures DETOXIFICATION SERVICES FOR SUBSTANCE ABUSE TREATMENT (01/20/17) GROUP DIRECTOR CALL FOR SUBSTANCE ABUSE TREATMENT, PSYCHOEDUCATION (05/13/16) INDIV DIRECTOR CALL FOR SUBSTANCE ABUSE TREATMENT, PSYCHOEDUCATION (01/20/17) INDIV DIRECTOR CALL FOR SUBSTANCE ABUSE, COGNITIVE BEHAVIORAL (01/20/17) INDIV PSYCHOTHERAPY FOR SUBSTANCE ABUSE TREATMENT, SUPPORT (01/20/17) MEDICATION MANAGEMENT (06/13/16) Family History: States: Unknown Family Hx - Social History Hx Tobacco Use: Yes Hx Alcohol Use: Yes Hx Substance Use: Yes (IVDU) - Immunization History Hx Tetanus Toxoid Vaccination: No Hx Influenza Vaccination: No Hx Pneumococcal Vaccination: No Review Of Systems Except As Marked, All Systems Reviewed And Found Negative. Constitutional: Negative for: Fever Cardiovascular: Negative for: Chest Pain Respiratory: Negative for: Shortness of Breath Gastrointestinal: Negative for: Vomiting, Abdominal Pain Musculoskeletal: Negative for: Neck Pain, Back Pain Neurological: Negative for: Weakness, Numbness, Seizures, Altered Mental Status Physical Exam - Physical Exam Appears: Non-toxic, No Acute Distress Skin: Warm, Dry Head: Atraumatic Eye(s): bilateral: PERRL, EOMI Neck: Normal ROM, Supple Cardiovascular: Rhythm Regular Respiratory: Normal Breath Sounds, No Accessory Muscle Use Gastrointestinal/Abdominal: Soft, No Tenderness Back: No CVA Tenderness Extremity: Normal ROM, Other (Track vargas on arms) Neurological/Psych: Oriented x3, Normal Motor, Normal Sensation Gait: Steady ED Course And Treatment - Laboratory Results Result Diagrams: 02/12/17 18:57 02/12/17 19:11 Lab Interpretation: No Acute Changes O2 Sat by Pulse Oximetry: 96 Pulse Ox Interpretation: Normal Progress Note: Pt was evaluated by the workers' compensation claims examiner who d/w Dr. Muhammad. They psychiatrically cleared pt for discharge home. Disposition Counseled Patient/Family Regarding: Studies Performed, Diagnosis, Need For Followup - Disposition Disposition: HOME/ ROUTINE Disposition Time: 20:46 Condition: STABLE Instructions: Polysubstance Abuse (ED) - Clinical Impression Clinical Impression: Drug abuse
[2017-02-12 20:54] VITALS: BP 138/73; PULSE 87; RESP 18; TEMP 97.9
== END 2017-02-12 20:53 | disposition home or self-care (01) ==
LOC: C.ER 16:45
DX: F19.10 Other psychoactive substance abuse, uncomplicated (principal)

== ENCOUNTER 2017-02-15 21:01 | Inpatient (IN) | payer MEDICAID ==
[2017-02-15 21:02] VITALS: BMI 31.0
[2017-02-15] MEDS ORDERED: Piperacillin/Tazobact 3.375 gm 100 ML IVPB STA (22:23)
[2017-02-15 23:04] LABS: BASO # 0.1 K/uL (0.0-0.2); BASO % 0.5 % (0.0-2.0); EOS # 0.4 K/uL (0.0-0.7); EOS % 3.4 % (0.0-4.0); HEMATOCRIT 42.8 % (35.0-51.0); LYMPH # 2.2 K/uL (1.0-4.3); LYMPH % 17.7 % (20.0-40.0); MEAN CORPUSCULAR HEMOGLOBIN 27.3 pg (27.0-31.0); MEAN CORPUSCULAR HGB CONC 32.9 g/dL (33.0-37.0); MEAN PLATELET VOLUME 6.9 fL (7.2-11.7); MONO # 1.2 K/uL (0.0-0.8); MONO % 9.4 % (0.0-10.0); RED CELL DISTRIBUTION WIDTH 15.5 % (11.5-14.5); WHITE BLOOD COUNT 12.3 K/uL (4.8-10.8)
--- NOTE | 2017-02-15 23:07 | C.PDOC ---
History Of Present Illness 26 year old patient presents to the ED complaining of swelling and redness to his left hand. Patient states uses heroin by IV to his left hand. He has previously had an infection to his left hand from IV heroin use. Patient denies fever, numbness, weakness, or any other complaints at this time. Time Seen by Provider: 02/15/17 22:19 Chief Complaint (Nursing): Finger,Hand,&Wrist History Per: Patient History/Exam Limitations: no limitations Onset/Duration Of Symptoms: Other Current Symptoms Are (Timing): Still Present Quality: Other Severity: None Pain Scale Rating Of: 0 Recent travel outside of the [place]: No Past Medical History Reviewed: Historical Data, Nursing Documentation, Vital Signs Vital Signs: Last Vital Signs Temp 98.4 F 02/15/17 22:09 Pulse 80 02/15/17 22:09 Resp 14 02/15/17 22:09 BP 118/79 02/15/17 22:09 Pulse Ox 98 02/15/17 23:12 - Medical History PMH: Anxiety, Depression - [facility] Procedures DETOXIFICATION SERVICES FOR SUBSTANCE ABUSE TREATMENT (01/20/17) GROUP SMOKE AND FLAME SPECIALIST FOR SUBSTANCE ABUSE TREATMENT, PSYCHOEDUCATION (05/13/16) INDIV SMOKE AND FLAME SPECIALIST FOR SUBSTANCE ABUSE TREATMENT, PSYCHOEDUCATION (01/20/17) INDIV SMOKE AND FLAME SPECIALIST FOR SUBSTANCE ABUSE, COGNITIVE BEHAVIORAL (01/20/17) INDIV PSYCHOTHERAPY FOR SUBSTANCE ABUSE TREATMENT, SUPPORT (01/20/17) MEDICATION MANAGEMENT (06/13/16) Family History: States: Unknown Family Hx - Social History Hx Tobacco Use: Yes Hx Alcohol Use: Yes Hx Substance Use: Yes (IVDU) - Immunization History Hx Tetanus Toxoid Vaccination: No Hx Influenza Vaccination: No Hx Pneumococcal Vaccination: No Review Of Systems Except As Marked, All Systems Reviewed And Found Negative. Constitutional: Negative for: Fever Skin: Positive for: Other (left hand erythema and swelling) Neurological: Negative for: Weakness, Numbness Physical Exam - Physical Exam Appears: Non-toxic, No Acute Distress Skin: Warm, Dry, Other (left hand: marked, swelling, erythema to proximal hand ( -)fluctuance (-)crepitius) Head: Atraumatic, Normacephalic Neck: Normal ROM, Supple Chest: Symmetrical Cardiovascular: Rhythm Regular Respiratory: Normal Breath Sounds, No Rales, No Rhonchi, No Wheezing Extremity: Normal ROM Neurological/Psych: Oriented x3, Normal Motor, Normal Sensation Gait: Steady ED Course And Treatment - Laboratory Results Result Diagrams: 02/15/17 22:57 02/15/17 22:57 O2 Sat by Pulse Oximetry: 98 (room air) Pulse Ox Interpretation: Normal Medical Decision Making Medical Decision Making: Plan: * Labs * Zosyn * Vancomycin Progress: pt with moderate cellulitis. h/o of iv drug abuse. no fluctuance palpated. defer further imaging of hand to inpt team. pt poor outpt candidate, with moderate cellultis to hand. needs iv antibiotics. Disposition - Disposition Disposition: HOSPITALIZED Disposition Time: 23:20 Condition: STABLE - Clinical Impression Clinical Impression: Cellulitis - Scribe Statement The provider has reviewed the documentation as recorded by the Scribe Divya Forde Provider Attestation: All medical record entries made by the Scribe were at my direction and personally dictated by me. I have reviewed the chart and agree that the record accurately reflects my personal performance of the history, physical exam, medical decision making, and the department course for this patient. I have also personally directed, reviewed, and agree with the discharge instructions and disposition. Decision To Admit - Pt Status Changed To: Hospital Disposition Of: Inpatient - Admit Certification Admit to Inpatient:: After my assessment, the patient will require hospitalization for at least two midnights. This is because of the severity of symptoms shown, intensity of services needed, and/or the medical risk in this patient being treated as an outpatient. - InPatient: Physician Admission Certification: I certify that this patient requires 2 or more midnights of care for the following reason:: pt with moderate cellultiis, h /o of ivda. needs iv antibiotics, poor outpt candidate, as cellulitis involves hand - . Bed Request Type: Regular Admitting Physician: Dayton Lechuga Patient Diagnosis: Cellulitis
[2017-02-15 23:12] LABS: CHLORIDE 100 mmol/L (98-107); SODIUM 137 mmol/L (132-148)
[2017-02-15 23:14] LABS: GFR AFRICAN-AMERICAN > 60
[2017-02-15 23:15] LABS: ALB/GLOB RATIO 1.7 (1.0-2.1); ALKALINE PHOSPHATASE 62 U/L (38-126); ALT/SGPT 23 U/L (21-72); AST/SGOT 26 U/L (17-59); BILIRUBIN,TOTAL 0.9 mg/dL (0.2-1.3); BLOOD UREA NITROGEN 12 mg/dL (9-20); CALCIUM 8.9 mg/dl (8.6-10.4); CARBON DIOXIDE 27 mmol/L (22-30); GLUCOSE,RANDOM 79 mg/dL (75-110); TOTAL PROTEIN 7.3 g/dL (6.3-8.3)
[2017-02-15 23:26] LABS: INR 1.1
[2017-02-15] MEDS ORDERED: Piperacillin/Tazobact 3.375 gm 0 ML IVPB ONE (23:27)
[2017-02-15] MEDS ORDERED: Piperacillin/Tazobact 3.375 gm 100 ML IVPB ONE (23:32)
[2017-02-16] MEDS: Dextrose 5%/0.45% NS 1,000 ML IV SCH ×4 (01:35→21:29)
[2017-02-16] MEDS: Piperacill/Tazo 3.375gm in Dex 3.375 GM/50 ML BAG IVPB SCH ×4 (06:00→23:59)
--- NOTE | 2017-02-16 09:27 | CP.PCM.PN ---
Subjective - Date & Time of Evaluation Date of Evaluation: 02/16/17 Time of Evaluation: 07:05 - Subjective Subjective: Medicine Note- Dr. Lechuga's service Patient was seen and examined at bedside. Patient reports that about 1.5 days ago, his hand began to swell up and become painful/red. He says that around the time it started, he had injected heroin into that hand. 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 He has been admitted multiple times to detox for it. He says he uses about 20-25 bags per day, IV. No events overnight, per nursing. Objective - Vital Signs/Intake and Output Vital Signs (last 24 hours): Temp Pulse Resp BP Pulse Ox 98.5 F 67 20 98/60 L 97 02/16/17 08:04 02/16/17 08:04 02/16/17 08:04 02/16/17 08:04 02/16/17 08:04 Intake and Output: 02/16/17 02/16/17 06:59 18:59 Intake Total 690 Balance 690 - Medications Medications: Current Medications Clonidine HCl (Catapres) 0.1 mg PO Q8H [facility] Last Admin: 02/16/17 01:54 Dose: 0.1 mg Dextrose/Sodium Chloride (Dextrose 5%/0.45% Ns 1000 Ml) 1,000 mls @ 100 mls/hr IV .Q10H [facility] Last Admin: 02/16/17 01:35 Dose: 100 mls/hr Piperacillin Sod/Tazobactam Sod (Zosyn 3.375 Gm Iv Premix) 3.375 gm in 50 mls @ 100 mls/hr IVPB Q6H [facility] Last Admin: 02/16/17 06:00 Dose: 100 mls/hr Vancomycin HCl 1 gm/ Sodium (Chloride) 250 mls @ 166.7 mls/hr IVPB Q12 [facility] Ketorolac Tromethamine (Toradol) 30 mg IVP Q8 PRN PRN Reason: Pain, moderate (4-7) Last Admin: 02/16/17 06:06 Dose: 30 mg Pneumococcal Polyvalent Vaccine (Pneumovax 23 Vaccine) 0.5 ml IM .ONCE ONE Stop: 02/18/17 10:01 - Labs Labs: PT 12.6 SECONDS (9.7-12.2) H 02/15/17 22:57 INR 1.1 02/15/17 22:57 APTT 32 SECONDS (21-34) 02/15/17 22:57 - Constitutional Appears: Non-toxic, No Acute Distress - Head Exam Head Exam: ATRAUMATIC, NORMAL INSPECTION, NORMOCEPHALIC - Eye Exam Pupil Exam: NORMAL ACCOMODATION, PERRL - ENT Exam ENT Exam: Mucous Membranes Moist - Respiratory Exam Respiratory Exam: Clear to Ausculation Bilateral, NORMAL BREATHING PATTERN. absent: Prolonged Expiratory Phase, Rales, Rhonchi, Wheezes - Cardiovascular Exam Cardiovascular Exam: REGULAR RHYTHM, +S1, +S2 - GI/Abdominal Exam GI & Abdominal Exam: Soft, Normal Bowel Sounds. absent: Tenderness, Diminished Bowel Sounds, Hernia, Hypoactive Bowel Sounds - Extremities Exam Extremities Exam: Normal Capillary Refill Additional comments: left hand is swollen and erythematous, tender to touch - Neurological Exam Neurological Exam: Alert, Awake, Oriented x3 - Psychiatric Exam Psychiatric exam: Normal Affect, Normal Mood - Skin Skin Exam: Dry, Intact, Normal Color, Warm Assessment and Plan - Assessment and Plan (Free Text) Assessment: Cellulitis Consult Gen Surg- Dr. Lazo Consult ID- Dr. Goodwin Ordered hand X ray to rule out foreign body Vanco 1gm IVPB Q12h (started 02/16/17) Zosyn 3.375gm IVPB Q6h (started 02/16/17) D5/ 1/2 NS @ 100cc/hr Toradol 30mg IVP Q8h PRN Heroin Abuse Discussed with Dr. Yi, will start patient on Methadone taper, 20mg starting today. Prophylactic Measure Pepcid 20mg PO BID [facility] all medical management as per Dr. Lechuga
--- NOTE | 2017-02-16 11:54 | RAD ---
PROCEDURE: Left Hand Radiographs. HISTORY: cellulitis, IV drugs, rule out foreign body COMPARISON: None. FINDINGS: BONES: Normal. No fracture. JOINTS: Normal. No osteoarthritic changes. SOFT TISSUES: Soft tissue swelling in thenar region OTHER FINDINGS: None. IMPRESSION: No radiopaque foreign body identified.
--- NOTE | 2017-02-16 14:37 | CP.PCM.CON ---
History of Present Illness - History of Present Illness History of Present Illness: 26 year old patient presents to the ED complaining of swelling and redness to his left hand. Patient states uses heroin by IV to his left hand. He has previously had an infection to his left hand from IV heroin use. Patient denies fever, numbness, weakness, or any other complaints at this time. Review of Systems - Review of Systems All systems: reviewed and no additional remarkable complaints except - Constitutional Constitutional: absent: As Per HPI, Anorexia, Chills, Daytime Sleepiness, Excessive Sweating, Fatigue, Fever, Frequent Falls, Headache, Increased Appetite , Lethargy, Malaise, Night Sweats, Snoring, Sleep Apnea, Weight Gain, Weight Loss, Weakness, Other - EENT Eyes: absent: As Per HPI, Blind Spots, Blurred Vision, Change in Vision, Decreased Night Vision, Diplopia, Discharge, Dry Eye, Exophthalmos, Floaters, Irritation, Itchy Eyes, Loss of Peripheral Vision, Pain, Photophobia, Requires Corrective Lenses, Sees Flashes, Spots in Vision, Tunnel Vision, Other Visual Disturbances, Loss of Vision, Other Ears: absent: As Per HPI, Decreased Hearing, Ear Discharge, Ear Pain, Tinnitus, Abnormal Hearing, Disequilibrium, Dizziness, Other Nose/Mouth/Throat: absent: As Per HPI, Epistaxis, Nasal Congestion, Nasal Discharge, Nasal Obstruction, Nasal Trauma, Nose Pain, Post Nasal Drip, Sinus Pain, Sinus Pressure, Bleeding Gums, Change in Voice, Dental Pain, Dry Mouth, Dysphagia, Halitosis, Hoarsness, Lip Swelling, Mouth Lesions, Mouth Pain, Odynophagia, Sore Throat, Throat Swelling, Tongue Swelling, Facial Pain, Neck Pain, Neck Mass, Other - Cardiovascular Cardiovascular: absent: As Per HPI, Acrocyanosis, Chest Pain, Chest Pain at Rest , Chest Pain with Activity, Claudication, Diaphoresis, Dyspnea, Dyspnea on Exertion, Edema, Irregular Heart Rhythm, Pain Radiating to Arm/Neck/Jaw, Leg Edema, Leg Ulcers, Lightheadedness, Orthopnea, Palpitations, Paroxysmal Nocturnal Dyspnea, Pedal Edema, Radiating Pain, Rapid Heart Rate, Slow Heart Rate, Syncope, Other - Respiratory Respiratory: absent: As Per HPI, Cough, Dyspnea, Hemoptysis, Dyspnea on Exertion , Wheezing, Snoring, Stridor, Pain on Inspiration, Chest Congestion, Excessive Mucous Production, Change in Mucous Color, Pain with Coughing, Other - Gastrointestinal Gastrointestinal: absent: As Per HPI, Abdominal Pain, Belching, Bloating, Change in Bowel Habits, Change in Stool Character, Coffee Ground Emesis, Constipation, Cramping, Diarrhea, Dyspepsia, Dysphagia, Early Satiety, Excessive Flatus, Fecal Incontinence, Heartburn, Hematemesis, Hematochezia, Loose Stools, Melena, Nausea, Odynophagia, Temesmus, Vomiting, Other - Genitourinary Genitourinary: absent: As Per HPI, Change in Urinary Stream, Difficulty Urinating, Dysuria, Flank Pain, Hematuria, Pyuria, Nocturia, Urinary Incontinence, Urinary Frequency, Urinary Hesitance, Urinary Urgency, Voiding Freq/Small Amts, Freq UTI, Hx Renal/Bladder Calculi, Hx /Renal Surgery, Bladder Distension, Other - Musculoskeletal Musculoskeletal: absent: As Per HPI, Abnormal Gait, Arthralgias, Atrophy, Back Pain, Deformity, Joint Swelling, Limited Range of Motion, Loss of Height, Muscle Cramps, Muscle Weakness, Myalgias, Neck Pain, Numbness, Radiating Pain into Limb, Stiffness, Tingling, Other - Integumentary Integumentary: As Per HPI - Neurological Neurological: absent: As Per HPI, Abnormal Gait, Abnormal Hearing, Abnormal Movements, Abnormal Speech, Behavioral Changes, Burning Sensations, Confusion, Convulsions, Disequilibrium, Dizziness, Numbness, Focal Weakness, Frequent Falls , Headaches, Lack of Coordination, Loss of Vision, Memory Loss, Paresthesias, Radicular Pain, Restless Legs, Sensory Deficit, Syncope, Tingling, Tremor, Vertigo, Weakness, Other Visual Disturbances, Other - Psychiatric Psychiatric: absent: As Per HPI, Abnormal Sleep Pattern, Anhedonia, Anxiety, Auditory Hallucinations, Behavioral Changes, Change in Appetite, Change in Libido, Confusion, Depression, Difficulty Concentrating, Hallucinations, Homicidal Ideation, Hopelessness, Irritability, Memory Loss, Mood Swings, Panic Attacks, Paranoia, Suicidal Ideation, Visual Hallucinations, Tactile Hallucinations, Other - Endocrine Endocrine: absent: As Per HPI, Change in Body Appearance, Change in Libido, Cold Intolorance, Deepening of Voice, Excessive Sweating, Fatigue, Flushing, Heat Intolorance, Increase in Ring/Shoe/Hat Size, Palpitations, Polydipsia, Polyphagia, Polyuria, Other - Hematologic/Lymphatic Hematologic: absent: As Per HPI, Easy Bleeding, Easy Bruising, Lymphadenopathy, Other Past Patient History - Infectious Disease Hx of Infectious Diseases: None - Past Medical History & Family History Past Medical History?: Yes - Past Social History Smoking Status: Heavy Smoker > 10 Cigarettes Daily - CARDIAC Hx Cardiac Disorders: No Hx Hypertension: No - PULMONARY Hx Respiratory Disorders: No Hx Tuberculosis: No - NEUROLOGICAL Hx Neurological Disorder: No Hx Seizures: No - HEENT Hx HEENT Problems: No - RENAL Hx Chronic Kidney Disease: No - ENDOCRINE/METABOLIC Hx Endocrine Disorders: No - HEMATOLOGICAL/ONCOLOGICAL Hx Blood Disorders: No Hx Human Immunodeficiency Virus (HIV): No - INTEGUMENTARY Hx Dermatological Problems: No - MUSCULOSKELETAL/RHEUMATOLOGICAL Hx Musculoskeletal Disorders: No Hx Falls: No - GASTROINTESTINAL Hx Gastrointestinal Disorders: No - GENITOURINARY/GYNECOLOGICAL Hx Genitourinary Disorders: No Hx Sexually Transmitted Disorders: No - PSYCHIATRIC Hx Anxiety: Yes Hx Depression: Yes Hx Substance Use: Yes (IVDU) - SURGICAL HISTORY Hx Surgeries: Yes Other/Comment: abscess removal. - ANESTHESIA Hx Anesthesia: No Hx Anesthesia Reactions: No Hx Malignant Hyperthermia: No Meds Allergies/Adverse Reactions: Allergies Allergy/AdvReac Type Severity Reaction Status Date / Time buprenorphine Allergy Verified 01/20/17 18:23 buprenorphine HCl Allergy Verified 01/20/17 18:23 [From Suboxone] naloxone HCl [From Suboxone] Allergy Verified 01/20/17 18:23 - Medications Medications: Current Medications Famotidine (Pepcid) 20 mg PO BID [facility] Last Admin: 02/16/17 10:26 Dose: 20 mg Dextrose/Sodium Chloride (Dextrose 5%/0.45% Ns 1000 Ml) 1,000 mls @ 100 mls/hr IV .Q10H [facility] Last Admin: 02/16/17 10:47 Dose: Not Given Piperacillin Sod/Tazobactam Sod (Zosyn 3.375 Gm Iv Premix) 3.375 gm in 50 mls @ 100 mls/hr IVPB Q6H [facility] Last Admin: 02/16/17 12:33 Dose: 100 mls/hr Vancomycin HCl 1 gm/ Sodium (Chloride) 250 mls @ 166.7 mls/hr IVPB Q12 [facility] Last Admin: 02/16/17 10:29 Dose: 166.7 mls/hr Ketorolac Tromethamine (Toradol) 30 mg IVP Q8 PRN PRN Reason: Pain, moderate (4-7) Last Admin: 02/16/17 06:06 Dose: 30 mg Methadone HCl (Methadone) 20 mg PO DAILY [facility] PRN Reason: Taper Stop: 02/20/17 09:59 Last Admin: 02/16/17 10:26 Dose: 20 mg Pneumococcal Polyvalent Vaccine (Pneumovax 23 Vaccine) 0.5 ml IM .ONCE ONE Stop: 02/18/17 10:01 Physical Exam - Constitutional Appears: Non-toxic, Chronically Ill - Head Exam Head Exam: ATRAUMATIC, NORMAL INSPECTION, NORMOCEPHALIC - Eye Exam Eye Exam: EOMI, PERRL. absent: Scleral icterus - ENT Exam ENT Exam: Mucous Membranes Dry, Normal External Ear Exam - Neck Exam Neck exam: Negative for: Lymphadenopathy, Thyromegaly - Respiratory Exam Respiratory Exam: Decreased Breath Sounds, Clear to Auscultation Bilateral - Cardiovascular Exam Cardiovascular Exam: REGULAR RHYTHM, +S1, +S2 - GI/Abdominal Exam GI & Abdominal Exam: Diminished Bowel Sounds, Soft. absent: Tenderness - Rectal Exam Rectal Exam: Deferred - Exam Exam: NORMAL INSPECTION - Extremities Exam Extremities exam: Positive for: pedal pulses present. Negative for: calf tenderness, pedal edema, tenderness - Back Exam Back exam: absent: CVA tenderness (L), CVA tenderness (R) - Neurological Exam Neurological exam: Alert, CN II-XII Intact, Oriented x3, Reflexes Normal - Skin Skin Exam: Dry, Intact Results - Vital Signs Recent Vital Signs: Last Vital Signs Temp 98.5 F 02/16/17 08:04 Pulse 67 02/16/17 08:04 Resp 20 02/16/17 08:04 BP 98/60 L 02/16/17 08:04 Pulse Ox 97 02/16/17 08:04 - Labs Result Diagrams: 02/15/17 22:57 02/15/17 22:57 Assessment & Plan (1) Cellulitis Status: Acute (2) Chest pain Status: Acute (3) Depression Status: Acute (4) Drug abuse Status: Acute (5) Drug dependence Status: Acute - Assessment and Plan (Free Text) Assessment: CONT IV RX FOR I AND D LEFT HAND
[2017-02-16] MEDS ORDERED: Sodium Citrate/Citric Acid 15 ml Sol ONE (15:45)
[2017-02-16] MEDS ORDERED: ceFAZolin IV 1 gm in Dextrose 0 GM/0 ML BAG IVPB ONE (15:55)
[2017-02-16] MEDS ORDERED: Bupivacaine HCl 0.25% PF (10 ml) Inj ONE (15:56)
[2017-02-16] MEDS ORDERED: Lidocaine 1% Inj (20ml) ONE (15:56)
--- NOTE | 2017-02-16 21:29 | OP ---
PROCEDURE DATE: 02/15/2017 PREOPERATIVE DIAGNOSIS: Abscess of the left hand. POSTOPERATIVE DIAGNOSIS: Abscess of the left hand. PROCEDURE PERFORMED: Incision and drainage and debridement of abscess of the left hand. SURGEON: Jai Lazo MD ANESTHESIA: General. ESTIMATED BLOOD LOSS: 20 mL. POSTOPERATIVE CONDITION: Stable. INDICATIONS FOR SURGERY: This is a 26-year-old male with history of IVDA who presents with an absces s of his left hand. He will now undergo an incision and drainage. PROCEDURE: The patient taken to the operating room and placed in a supine position with the left anderson d extended. The left hand was prepped and draped. IV sedation was administered and the abscess area was anesthetized. An incision was made surrounding a necrotic mass which was removed and the abscess drained in this fashion. Cultures were taken and the wound was irrigated with saline. An underlyin g digital blood vessel was repaired and a partial tissue transfer closure was performed. The central portion of the wound was packed open with wet saline gauze. The patient tolerated procedure well, r eturned to recovery room in stable condition. Jai Lazo MD cc: [id number] TT: 02/16/2017 21:28:48 uma
[2017-02-17] MEDS: Piperacill/Tazo 3.375gm in Dex 3.375 GM/50 ML BAG IVPB SCH ×3 (05:34→18:05)
[2017-02-17] MEDS: Dextrose 5%/0.45% NS 1,000 ML IV SCH ×2 (08:15→16:00)
[2017-02-17 09:56] LABS: URINE BILIRUBIN NEGATIVE (NEGATIVE); URINE BLOOD NEGATIVE (NEGATIVE); URINE COLOR Yellow (YELLOW); URINE GLUCOSE (UA) NORMAL (Normal); URINE KETONE NEGATIVE (NEGATIVE); URINE LEUKOCYTE ESTERASE NEG Leu/uL (Negative); URINE PROTEIN NEGATIVE (NEGATIVE); URINE UROBILINOGEN NORMAL mg/dL (0.2-1.0); WBC URINE < 1 /hpf (0-5)
[2017-02-17] MEDS ORDERED: Bacitracin 500 Units/gm Oint Foilpak UD TOP ONE (14:49)
[2017-02-17 17:33] LABS: BASO % 0.2 % (0.0-2.0); EOS # 0.4 K/uL (0.0-0.7); EOS % 4.7 % (0.0-4.0); HEMATOCRIT 40.5 % (35.0-51.0); LYMPH % 21.4 % (20.0-40.0); MEAN CELL VOLUME 82.9 fL (80.0-94.0); MEAN CORPUSCULAR HEMOGLOBIN 27.8 pg (27.0-31.0); MEAN CORPUSCULAR HGB CONC 33.5 g/dL (33.0-37.0); MEAN PLATELET VOLUME 7.2 fL (7.2-11.7); MONO # 0.7 K/uL (0.0-0.8); MONO % 7.2 % (0.0-10.0); RED CELL DISTRIBUTION WIDTH 15.6 % (11.5-14.5); WHITE BLOOD COUNT 9.3 K/uL (4.8-10.8)
[2017-02-17 17:45] LABS: CHLORIDE 107 mmol/L (98-107); SODIUM 139 mmol/L (132-148)
[2017-02-17 17:47] LABS: BILIRUBIN,TOTAL 0.6 mg/dL (0.2-1.3); CARBON DIOXIDE 22 mmol/L (22-30); GFR AFRICAN-AMERICAN > 60
[2017-02-17 17:48] LABS: ALB/GLOB RATIO 1.3 (1.0-2.1); ALKALINE PHOSPHATASE 47 U/L (38-126); ALT/SGPT 27 U/L (21-72); AST/SGOT 24 U/L (17-59); BLOOD UREA NITROGEN 8 mg/dL (9-20); CALCIUM 7.9 mg/dl (8.6-10.4); GLUCOSE,RANDOM 91 mg/dL (75-110)
[2017-02-18] MEDS: Piperacill/Tazo 3.375gm in Dex 3.375 GM/50 ML BAG IVPB SCH ×3 (00:01→12:44)
[2017-02-18] MEDS: Dextrose 5%/0.45% NS 1,000 ML IV SCH (02:25)
[2017-02-18 09:04] VITALS: BP 110/65; PULSE 60; RESP 20; TEMP 97.5; O2SAT 97
[2017-02-18] MEDS ORDERED: Pneumococcal 23-Valent Vaccine IM ONE (10:00)
[2017-02-18] MEDS ORDERED: Bacitracin 500 Units/gm Oint Foilpak UD TOP SCH (10:00)
[2017-02-18 11:38] LABS: BASO # 0.1 K/uL (0.0-0.2); EOS # 0.4 K/uL (0.0-0.7); EOS % 6.4 % (0.0-4.0); HEMATOCRIT 41.8 % (35.0-51.0); LYMPH # 1.7 K/uL (1.0-4.3); LYMPH % 25.9 % (20.0-40.0); MEAN CELL VOLUME 83.3 fL (80.0-94.0); MEAN CORPUSCULAR HEMOGLOBIN 27.7 pg (27.0-31.0); MEAN CORPUSCULAR HGB CONC 33.3 g/dL (33.0-37.0); MEAN PLATELET VOLUME 7.4 fL (7.2-11.7); MONO # 0.5 K/uL (0.0-0.8); MONO % 8.5 % (0.0-10.0); RED CELL DISTRIBUTION WIDTH 16.1 % (11.5-14.5); WHITE BLOOD COUNT 6.4 K/uL (4.8-10.8)
[2017-02-18 12:05] LABS: CHLORIDE 106 mmol/L (98-107); POTASSIUM 4.4 mmol/L (3.6-5.2); SODIUM 140 mmol/L (132-148)
[2017-02-18 12:08] LABS: ALB/GLOB RATIO 1.4 (1.0-2.1); ALKALINE PHOSPHATASE 51 U/L (38-126); ALT/SGPT 32 U/L (21-72); AST/SGOT 29 U/L (17-59); BILIRUBIN,TOTAL 0.8 mg/dL (0.2-1.3); BLOOD UREA NITROGEN 7 mg/dL (9-20); CARBON DIOXIDE 24 mmol/L (22-30); GFR AFRICAN-AMERICAN > 60; GLUCOSE,RANDOM 76 mg/dL (75-110); TOTAL PROTEIN 6.4 g/dL (6.3-8.3)
[2017-02-18 12:09] LABS: CALCIUM 8.4 mg/dl (8.6-10.4)
--- NOTE | 2017-02-18 14:48 | CP.PCM.PN ---
Subjective - Date & Time of Evaluation Date of Evaluation: 02/18/17 Time of Evaluation: 09:00 - Subjective Subjective: less swelling left hand 'wants to sign out cultures pending Objective - Vital Signs/Intake and Output Vital Signs (last 24 hours): Temp Pulse Resp BP Pulse Ox 97.5 F L 60 20 110/65 97 02/18/17 07:00 02/18/17 07:00 02/18/17 07:00 02/18/17 07:00 02/18/17 07:00 Intake and Output: 02/18/17 02/18/17 06:59 18:59 Intake Total 2049 999 Balance 2049 999 - Medications Medications: Current Medications Bacitracin (Bacitracin) 1 ea TOP DAILY [facility] Stop: 02/27/17 10:01 Last Admin: 02/18/17 10:21 Dose: 1 ea Famotidine (Pepcid) 20 mg PO BID [facility] Last Admin: 02/18/17 10:20 Dose: 20 mg Gabapentin (Neurontin) 300 mg PO TID [facility] Last Admin: 02/18/17 14:22 Dose: 300 mg Dextrose/Sodium Chloride (Dextrose 5%/0.45% Ns 1000 Ml) 1,000 mls @ 100 mls/hr IV .Q10H [facility] Last Admin: 02/18/17 02:25 Dose: 100 mls/hr Piperacillin Sod/Tazobactam Sod (Zosyn 3.375 Gm Iv Premix) 3.375 gm in 50 mls @ 100 mls/hr IVPB Q6H [facility] Last Admin: 02/18/17 12:44 Dose: 100 mls/hr Vancomycin HCl 1 gm/ Sodium (Chloride) 250 mls @ 166.7 mls/hr IVPB Q12 [facility] Last Admin: 02/18/17 12:23 Dose: 166.7 mls/hr Methadone HCl (Methadone) 10 mg PO DAILY [facility] PRN Reason: Taper Stop: 02/20/17 09:59 Last Admin: 02/18/17 10:19 Dose: 10 mg Quetiapine Fumarate (Seroquel) 200 mg PO HS [facility] Last Admin: 02/17/17 21:18 Dose: 200 mg Sertraline HCl (Zoloft) 50 mg PO HS [facility] Last Admin: 02/17/17 21:18 Dose: 50 mg - Labs Labs: 02/18/17 11:25 02/18/17 11:25 PT 12.6 SECONDS (9.7-12.2) H 02/15/17 22:57 INR 1.1 02/15/17 22:57 APTT 32 SECONDS (21-34) 02/15/17 22:57 - Constitutional Appears: Non-toxic, Chronically Ill - Head Exam Head Exam: NORMOCEPHALIC - Eye Exam Eye Exam: PERRL. absent: Scleral icterus - ENT Exam ENT Exam: Mucous Membranes Dry - Neck Exam Neck Exam: absent: Lymphadenopathy - Respiratory Exam Respiratory Exam: Decreased Breath Sounds - Cardiovascular Exam Cardiovascular Exam: REGULAR RHYTHM - GI/Abdominal Exam GI & Abdominal Exam: Distended, Soft - Rectal Exam Rectal Exam: Deferred - Exam Exam: NORMAL INSPECTION - Extremities Exam Extremities Exam: absent: Pedal Edema - Back Exam Back Exam: absent: CVA tenderness (L), CVA tenderness (R) - Neurological Exam Neurological Exam: Alert, Awake Assessment and Plan (1) Cellulitis Status: Acute (2) Chest pain Status: Acute (3) Depression Status: Acute (4) Drug abuse Status: Acute (5) Drug dependence Status: Acute - Assessment and Plan (Free Text) Assessment: cont iv rx
--- NOTE | 2017-02-19 07:37 | HP ---
This is a 26-year-old male brought to hospital with chief complaint of swelling of the left arm. The patient has been using intravenous heroin. Attempted to inject in his left hand and missed the vein . The patient had large cellulitis and came to the hospital; advised admission. PAST MEDICAL HISTORY: History of drug addiction. The patient uses 10 bags a day habit. PHYSICAL EXAMINATION: GENERAL: The patient is awake. VITAL SIGNS: Temperature 99.9, pulse is 90. HEENT: Within normal limits. NECK: Supple. CHEST: Symmetrical. HEART: Regular. ABDOMEN: Soft. EXTREMITIES: Left hand is red and swollen on dorsal aspect with ____ track nelson. The patient suffers from intravenous related cellulitis, drug abuse, heroin addiction. The patient will ____ IV antibiotic, ID consult, methadone tapering, social service consultation. Dayton Arreola MD cc: [id number] TT: 02/16/2017 11:33:54 ak
== END 2017-02-18 16:35 | disposition left against medical advice (07) | DRG 269 ==
LOC: C.ER 21:01 → C.3T 23:19
PROVIDERS: ADMIT Internal Medicine Pulmonary Disease; ATTEND Internal Medicine Pulmonary Disease
PROC: 0JBK0ZZ Excision of Left Hand Subcutaneous Tissue and Fascia, Open Approach (ICD-10-PCS; principal; 2017-02-15)
PROC: 0J9K0ZZ Drainage of Left Hand Subcutaneous Tissue and Fascia, Open Approach (ICD-10-PCS; 2017-02-15)
DX: L03.114 Cellulitis of left upper limb (principal); F11.20 Opioid dependence, uncomplicated; F32.9 Major depressive disorder, single episode, unspecified; F17.210 Nicotine dependence, cigarettes, uncomplicated; R07.9 Chest pain, unspecified

== ENCOUNTER 2017-02-20 16:41 | Emergency (ER) | payer MEDICAID ==
[2017-02-20 16:41] VITALS: BMI 31.0
[2017-02-20 16:56] VITALS: BP 103/70; PULSE 105; RESP 18; TEMP 98.2; O2SAT 97
[2017-02-20] MEDS ORDERED: Piperacill/Tazo 3.375gm in Dex 50 ML IVPB STA (17:29)
--- NOTE | 2017-02-20 17:47 | C.PDOC ---
History Of Present Illness 26-year-old male, PMHx includes IVDA, presents to the emergency department for evaluation of left-thumb pain, swelling and redness that gradually developed yesterday. Patient admits that he was seen in ED a few days ago, and was admitted due to left-hand(same hand) cellulitis. Patient is currently on antibiotics (Clindamycin), received after being discharged from the hospital. Denies fevers, chills, weakness, sensory/vascular deficits to Left hand, or any other associated symptoms. No other complaints at this time. Time Seen by Provider: 02/20/17 17:13 Chief Complaint (Nursing): Abnormal Skin Integrity History Per: Patient History/Exam Limitations: no limitations Onset/Duration Of Symptoms: Days (1) Current Symptoms Are (Timing): Still Present Location Of Injury: Left: Hand (THUMB) Quality Of Symptoms: Swollen (redness) Severity: Moderate Past Medical History Reviewed: Historical Data, Nursing Documentation, Vital Signs Vital Signs: Last Vital Signs Temp 98.2 F 02/20/17 16:50 Pulse 105 H 02/20/17 16:50 Resp 18 02/20/17 16:50 BP 103/70 02/20/17 16:50 Pulse Ox 97 02/20/17 18:36 - Medical History PMH: Anxiety, Depression Denies: Diabetes, Hepatitis, HIV, HTN, Chronic Kidney Disease, Seizures, Sexually Transmitted Disease - [facility] Procedures DETOXIFICATION SERVICES FOR SUBSTANCE ABUSE TREATMENT (01/20/17) DRAINAGE OF L HAND SUBCU/FASCIA, OPEN APPROACH (02/15/17) EXCISION OF L HAND SUBCU/FASCIA, OPEN APPROACH (02/15/17) GROUP STRIPPING SHOVEL OILER FOR SUBSTANCE ABUSE TREATMENT, PSYCHOEDUCATION (05/13/16) INDIV STRIPPING SHOVEL OILER FOR SUBSTANCE ABUSE TREATMENT, PSYCHOEDUCATION (01/20/17) INDIV STRIPPING SHOVEL OILER FOR SUBSTANCE ABUSE, COGNITIVE BEHAVIORAL (01/20/17) INDIV PSYCHOTHERAPY FOR SUBSTANCE ABUSE TREATMENT, SUPPORT (01/20/17) MEDICATION MANAGEMENT (06/13/16) Family History: States: No Known Family Hx - Social History Hx Tobacco Use: Yes Hx Alcohol Use: Yes Hx Substance Use: Yes (IVDU) - Immunization History Hx Tetanus Toxoid Vaccination: No Hx Influenza Vaccination: No Hx Pneumococcal Vaccination: No Review Of Systems Except As Marked, All Systems Reviewed And Found Negative. Constitutional: Negative for: Fever, Chills Gastrointestinal: Negative for: Vomiting Neurological: Negative for: Weakness, Numbness Physical Exam - Physical Exam Appears: Well, Non-toxic, No Acute Distress Skin: Warm, Dry, Other (multiple track vargas B/L UEs and LEs.) Eye(s): bilateral: PERRL Oral Mucosa: Moist Throat: Normal, No Erythema, No Exudate, No Drooling Neck: Supple Cardiovascular: Rhythm Regular Respiratory: No Stridor, No Wheezing Gastrointestinal/Abdominal: Soft, No Tenderness, No Organomegaly, No Distention , No Guarding Back: No CVA Tenderness Extremity: Capillary Refill (less than 2sec to Left hand), No Deformity, Other ( L hand: Mild tenderness, edema, erythema, and warmth over the left first PIPJ. Mild discomfort w/ flexion/ext. No fluctuance or proximal streaking. ) Neurological/Psych: Oriented x3, Normal Motor, Normal Sensation, Normal Reflexes ED Course And Treatment - Laboratory Results Result Diagrams: 02/20/17 18:19 02/20/17 18:19 O2 Sat by Pulse Oximetry: 97 Pulse Ox Interpretation: Normal - Other Rad Left thumb X-Ray: Interpreted by Me, Viewed By Me Interpretation: no acute fx, no evidence of osteo Progress Note: Diagnostics review and appears without acute abnoramlities. Pt has clinical findings c/w left thumb cellulitis r/o left 1st PIPJ septic joint, hx of IVDA. Admission offered to patient, refused and wish to be discharge now. Risk vs benefits of admission discussed with pt. Pt understand and agrees with discharge AMA. Advised return at any time to complete evaluation and tcx. Disposition - Disposition Disposition: AGAINST MEDICAL ADVICE Disposition Time: 19:06 Condition: STABLE - Clinical Impression Clinical Impression: Cellulitis, Septic arthritis, Opiate abuse, continuous - Scribe Statement The provider has reviewed the documentation as recorded by the Siriibdevora Blancas All medical record entries made by the Scribe were at my direction and personally dictated by me. I have reviewed the chart and agree that the record accurately reflects my personal performance of the history, physical exam, medical decision making, and the department course for this patient. I have also personally directed, reviewed, and agree with the discharge instructions and disposition.
[2017-02-20] MEDS ORDERED: Piperacillin/Tazobact 3.375 gm 100 ML IVPB ONE ×2 (18:00→18:14)
[2017-02-20 18:25] LABS: BASO % 0.2 % (0.0-2.0); EOS # 0.3 K/uL (0.0-0.7); EOS % 3.6 % (0.0-4.0); HEMATOCRIT 41.6 % (35.0-51.0); LYMPH # 1.8 K/uL (1.0-4.3); LYMPH % 23.3 % (20.0-40.0); MEAN CELL VOLUME 82.3 fL (80.0-94.0); MEAN CORPUSCULAR HGB CONC 34.1 g/dL (33.0-37.0); MEAN PLATELET VOLUME 7.3 fL (7.2-11.7); MONO # 0.5 K/uL (0.0-0.8); MONO % 6.5 % (0.0-10.0); RED CELL DISTRIBUTION WIDTH 15.5 % (11.5-14.5); WHITE BLOOD COUNT 7.8 K/uL (4.8-10.8)
[2017-02-20 18:33] LABS: INR 1.2
[2017-02-20 18:34] LABS: CHLORIDE 101 mmol/L (98-107); POTASSIUM 3.9 mmol/L (3.6-5.2); SODIUM 138 mmol/L (132-148)
[2017-02-20 18:36] LABS: GFR AFRICAN-AMERICAN > 60
[2017-02-20 18:37] LABS: ALB/GLOB RATIO 1.6 (1.0-2.1); ALKALINE PHOSPHATASE 56 U/L (38-126); ALT/SGPT 32 U/L (21-72); AST/SGOT 32 U/L (17-59); BILIRUBIN,TOTAL 0.8 mg/dL (0.2-1.3); BLOOD UREA NITROGEN 12 mg/dL (9-20); CALCIUM 8.6 mg/dl (8.6-10.4); CARBON DIOXIDE 24 mmol/L (22-30); GLUCOSE,RANDOM 65 mg/dL (75-110); TOTAL PROTEIN 7.1 g/dL (6.3-8.3)
--- NOTE | 2017-02-22 16:47 | RAD ---
PROCEDURE: Left Thumb radiographs. Move HISTORY: pain, swelling COMPARISON: None. TECHNIQUE: AP radiograph of the left hand, as well as spot oblique and lateral images of thumb were obtained. FINDINGS: LEFT THUMB: Questionable oblique fracture of the base of the 1st proximal phalanx. This is only seen on the lateral view of the thumb. Additional imaging is advised. Remainder of the left hand (as seen on the AP view) grossly unremarkable. JOINTS: Normal. SOFT TISSUES: Normal. OTHER FINDINGS: None. IMPRESSION: Questionable oblique fracture at the base of the 1st proximal phalanx. Additional imaging advised.
== END 2017-02-20 18:55 | disposition left against medical advice (07) ==
LOC: C.ER 16:41
DX: M00.9 Pyogenic arthritis, unspecified (principal); F11.10 Opioid abuse, uncomplicated; L03.012 Cellulitis of left finger
CPT/HCPCS: 73140; 80053; 85025; 85610; 85730; 87040; 96365; 99284; J2543

== ENCOUNTER 2017-02-26 22:07 | Observation (INO) | payer MEDICAID ==
[2017-02-26 22:07] VITALS: BMI 31.0
[2017-02-26] MEDS ORDERED: Sodium Chloride 0.9% 1,000 ML IV STA (22:41)
[2017-02-26 23:34] LABS: CHLORIDE 100 mmol/L (98-107); POTASSIUM 4.8 mmol/L (3.6-5.2); SODIUM 137 mmol/L (132-148)
[2017-02-26 23:37] LABS: ALB/GLOB RATIO 1.5 (1.0-2.1); ALKALINE PHOSPHATASE 59 U/L (38-126); ALT/SGPT 18 U/L (21-72); AST/SGOT 47 U/L (17-59); BLOOD UREA NITROGEN 13 mg/dL (9-20); CARBON DIOXIDE 26 mmol/L (22-30); GFR AFRICAN-AMERICAN > 60; GLUCOSE,RANDOM 72 mg/dL (75-110); TOTAL PROTEIN 7.2 g/dL (6.3-8.3)
[2017-02-26 23:38] LABS: CALCIUM 8.8 mg/dl (8.6-10.4)
--- NOTE | 2017-02-27 00:01 | C.PDOC ---
History Of Present Illness Patient is a 26 year old male who presents to the ER with a complaint of right hand swelling and pain. Patient is a known IVDA and admits to heroin use through his right hand. Patient was admitted on the for similar symptoms on his left hand. Patient denies SOB, fever, nausea or vomiting. Time Seen by Provider: 02/26/17 22:28 Chief Complaint (Nursing): Abnormal Skin Integrity History Per: Patient History/Exam Limitations: no limitations Onset/Duration Of Symptoms: Hrs Current Symptoms Are (Timing): Still Present Location Of Injury: Right: Hand (Swelling/Pain) Quality Of Symptoms: Painful, Swollen Recent travel outside of the [place]: No Past Medical History Vital Signs: Last Vital Signs Temp 98.1 F 02/26/17 22:12 Pulse 94 H 02/26/17 22:12 Resp 18 02/26/17 22:12 BP 117/73 02/26/17 22:12 Pulse Ox 96 02/27/17 00:41 - Medical History PMH: Anxiety, Depression - [facility] Procedures DETOXIFICATION SERVICES FOR SUBSTANCE ABUSE TREATMENT (01/20/17) DRAINAGE OF L HAND SUBCU/FASCIA, OPEN APPROACH (02/15/17) EXCISION OF L HAND SUBCU/FASCIA, OPEN APPROACH (02/15/17) GROUP OYSTER WORKER FOR SUBSTANCE ABUSE TREATMENT, PSYCHOEDUCATION (05/13/16) INDIV OYSTER WORKER FOR SUBSTANCE ABUSE TREATMENT, PSYCHOEDUCATION (01/20/17) INDIV OYSTER WORKER FOR SUBSTANCE ABUSE, COGNITIVE BEHAVIORAL (01/20/17) INDIV PSYCHOTHERAPY FOR SUBSTANCE ABUSE TREATMENT, SUPPORT (01/20/17) MEDICATION MANAGEMENT (06/13/16) Family History: States: Unknown Family Hx - Social History Hx Tobacco Use: Yes Hx Alcohol Use: Yes Hx Substance Use: Yes (IVDU) - Immunization History Hx Tetanus Toxoid Vaccination: No Hx Influenza Vaccination: No Hx Pneumococcal Vaccination: No Review Of Systems Constitutional: Negative for: Fever Respiratory: Negative for: Shortness of Breath Gastrointestinal: Negative for: Nausea, Vomiting Musculoskeletal: Positive for: Hand Pain (Right) Physical Exam - Physical Exam Appears: Well, Non-toxic Skin: Normal Color, Warm, Dry Head: Atraumatic, Normacephalic Oral Mucosa: Moist Chest: Symmetrical, No Tenderness Cardiovascular: Rhythm Regular, No Murmur Respiratory: Normal Breath Sounds, No Rales, No Rhonchi, No Wheezing Gastrointestinal/Abdominal: Soft, No Tenderness Extremity: Tenderness (Erythema, between 1st and 2nd metacarpal bone area. No open sores.), Swelling (Between 1st and 2nd metacarpal bone area), Other ( Erythema, between 1st and 2nd metacarpal bone area) Neurological/Psych: Oriented x3, Normal Speech, Normal Cognition ED Course And Treatment - Laboratory Results Result Diagrams: 02/27/17 00:31 02/26/17 23:15 O2 Sat by Pulse Oximetry: 96 (Room air) Pulse Ox Interpretation: Normal - Other Rad Right hand x-ray X-Ray: Interpreted by Me, Viewed By Me Interpretation: No acute abnormalites found. Progress Note: Blood work and right hand x-ray ordered. Vancomycin and IV fluids administered. Plan is to admit patient. Casew as d/w dr.Elamir mendez ccepted an admission to the regular floor. Disposition - Disposition Disposition: HOSPITALIZED Disposition Time: 01:56 Condition: FAIR - Clinical Impression Clinical Impression: Cellulitis of hand, right, IV drug abuse - Scribe Statement The provider has reviewed the documentation as recorded by the Scribdevora Fernandes All medical record entries made by the Scribe were at my direction and personally dictated by me. I have reviewed the chart and agree that the record accurately reflects my personal performance of the history, physical exam, medical decision making, and the department course for this patient. I have also personally directed, reviewed, and agree with the discharge instructions and disposition. Decision To Admit - Pt Status Changed To: Hospital Disposition Of: Inpatient - Admit Certification Admit to Inpatient:: After my assessment, the patient will require hospitalization for at least two midnights. This is because of the severity of symptoms shown, intensity of services needed, and/or the medical risk in this patient being treated as an outpatient. - InPatient: Physician Admission Certification: I certify that this patient requires 2 or more midnights of care for the following reason:: Patient with hand cellulitis and IVDA will need more than 2 days of inpatient admission for IV antibiotics and possible OR treatment. - . Bed Request Type: Regular Admitting Physician: Dayton Lechuga Patient Diagnosis: Cellulitis of hand, right, IV drug abuse
[2017-02-27 00:34] LABS: BASO % 0.3 % (0.0-2.0); EOS # 0.4 K/uL (0.0-0.7); EOS % 5.2 % (0.0-4.0); HEMATOCRIT 39.9 % (35.0-51.0); LYMPH # 1.9 K/uL (1.0-4.3); LYMPH % 26.6 % (20.0-40.0); MEAN CELL VOLUME 82.6 fL (80.0-94.0); MEAN CORPUSCULAR HEMOGLOBIN 28.3 pg (27.0-31.0); MEAN CORPUSCULAR HGB CONC 34.2 g/dL (33.0-37.0); MONO # 0.6 K/uL (0.0-0.8); MONO % 8.5 % (0.0-10.0); NRBC % 0.1 % (0.0-2.0); RED CELL DISTRIBUTION WIDTH 15.5 % (11.5-14.5); WHITE BLOOD COUNT 7.2 K/uL (4.8-10.8)
[2017-02-27] MEDS ORDERED: Oxycodone/Acetaminophen 5/325 mg Tab PO PRN (01:35)
[2017-02-27 04:40] VITALS: RESP 20
[2017-02-27] MEDS ORDERED: Midazolam 2 MG/2 ML VIAL ONE (07:28)
[2017-02-27] MEDS ORDERED: Propofol 10 mg/ml Inj (20 ML) ONE (07:28)
[2017-02-27] MEDS ORDERED: Phenylephrine 10 mg/ml Inj ONE (07:30)
[2017-02-27 08:21] VITALS: BP 90/51; PULSE 63; TEMP 97.5; O2SAT 97
--- NOTE | 2017-02-27 09:15 | RAD ---
PROCEDURE: Right Hand Radiographs. HISTORY: IVDA cellilitis, r/o FB COMPARISON: None. FINDINGS: BONES: Normal. No fracture. JOINTS: Normal. No osteoarthritic changes. SOFT TISSUES: No radiopaque/visualize foreign body. Diffuse soft tissue swelling primarily palm are. OTHER FINDINGS: None. IMPRESSION: Soft tissue swelling without acute articular or osseous abnormality.
--- NOTE | 2017-02-27 11:19 | CP.PCM.PN ---
Subjective - Date & Time of Evaluation Date of Evaluation: 02/27/17 Time of Evaluation: 09:30 - Subjective Subjective: PGY2 Medicine Note - Dr. Lechuga's service: Patient seen and examined at bedside this AM. Patient reports b/l hand swelling and erythema. Patient says he has to go to a [facility] today. Patient wants to leave AMA. Patient made aware of risks of infection, cellulitis, sepsis, bacteremia, trauma and . Patient says he still wants to go. Patient given scripts for Keflex and Bactrim per Dr. Coley. Patient denies fever, chills, chest pain, SOB. Objective - Vital Signs/Intake and Output Vital Signs (last 24 hours): Temp Pulse Resp BP Pulse Ox 97.5 F L 63 20 90/51 L 97 02/27/17 07:00 02/27/17 07:00 02/27/17 07:00 02/27/17 07:00 02/27/17 07:00 - Medications Medications: Current Medications Vancomycin HCl 1,000 mg/ (Sodium Chloride) 250 mls @ 166.6 mls/hr IVPB Q12H EMILIANO Last Admin: 02/27/17 04:12 Dose: Not Given Oxycodone/Acetaminophen (Percocet 5/325 Mg Tab) 1 tab PO Q4H PRN PRN Reason: Pain, moderate (4-7) Stop: 03/02/17 01:36 - Constitutional Appears: Non-toxic, No Acute Distress - Head Exam Head Exam: NORMAL INSPECTION - Eye Exam Eye Exam: EOMI - ENT Exam ENT Exam: Mucous Membranes Moist - Respiratory Exam Respiratory Exam: Clear to Ausculation Bilateral, NORMAL BREATHING PATTERN. absent: Rales, Rhonchi, Wheezes - Cardiovascular Exam Cardiovascular Exam: REGULAR RHYTHM, +S1, +S2 - GI/Abdominal Exam GI & Abdominal Exam: Soft, Normal Bowel Sounds. absent: Tenderness - Extremities Exam Additional comments: b/l posterior hand edema and erythema - Neurological Exam Neurological Exam: Alert, Oriented x3 - Psychiatric Exam Psychiatric exam: Normal Affect, Normal Mood - Skin Skin Exam: Normal Color, Warm Assessment and Plan - Assessment and Plan (Free Text) Assessment: Cellulitis b/l hands F/U blood culture - patient left AMA so he was instructed to follow this up outpatient Patient given scripts for Keflex and Bactrim for [address] Coley All management per Dr. Lechuga and Dr. Coley
--- NOTE | 2017-04-23 18:48 | HP ---
HISTORY OF PRESENT ILLNESS: The patient has a chief complaint of generalized fatigue, tiredness, and body pain. The patient came to the ER, advised admission. PHYSICAL EXAMINATION: GENERAL: The patient is awake, alert, and oriented. VITAL SIGNS: Temperature 98 and pulse 90. HEENT: Within normal limits. NECK: Supple. HEART: Regular. LUNGS: Symmetrical. ABDOMEN: Soft. EXTREMITIES: No edema. IMPRESSION AND PLAN: The patient on bedrest, supportive care, IV antibiotic. Dayton Lechuga MD
== END 2017-02-27 09:30 | disposition left against medical advice (07) ==
LOC: C.ER 22:07 → INTOOBSV 02-27 01:33 → C.5T 02-27 01:33
PROVIDERS: ADMIT Internal Medicine Pulmonary Disease; ATTEND Internal Medicine Pulmonary Disease
DX: L03.113 Cellulitis of right upper limb (principal); F11.10 Opioid abuse, uncomplicated; F32.9 Major depressive disorder, single episode, unspecified; F41.9 Anxiety disorder, unspecified; F17.210 Nicotine dependence, cigarettes, uncomplicated; F10.10 Alcohol abuse, uncomplicated
CPT/HCPCS: 73130; 80053; 85025; 87040; 96361; 96365; 96366; 99284; G0378; J1100; J2250; J2370; J2405; J2704; J3010; J3370; J7040

== ENCOUNTER 2017-03-05 13:59 | Inpatient (IN) | payer MEDICAID ==
[2017-03-05 13:59] VITALS: BMI 31.0
[2017-03-05 15:39] LABS: BASO % 0.5 % (0.0-2.0); EOS # 0.5 K/uL (0.0-0.7); EOS % 6.7 % (0.0-4.0); HEMATOCRIT 42.5 % (35.0-51.0); LYMPH # 1.3 K/uL (1.0-4.3); LYMPH % 19.6 % (20.0-40.0); MEAN CELL VOLUME 82.6 fL (80.0-94.0); MEAN CORPUSCULAR HEMOGLOBIN 27.5 pg (27.0-31.0); MEAN CORPUSCULAR HGB CONC 33.2 g/dL (33.0-37.0); MEAN PLATELET VOLUME 7.3 fL (7.2-11.7); MONO # 0.6 K/uL (0.0-0.8); MONO % 9.5 % (0.0-10.0); RED CELL DISTRIBUTION WIDTH 15.2 % (11.5-14.5); WHITE BLOOD COUNT 6.8 K/uL (4.8-10.8)
[2017-03-05 15:50] LABS: CHLORIDE 100 mmol/L (98-107)
[2017-03-05 15:51] LABS: POTASSIUM 4.4 mmol/L (3.6-5.2); SODIUM 137 mmol/L (132-148)
[2017-03-05 15:52] LABS: ALB/GLOB RATIO 1.8 (1.0-2.1); CARBON DIOXIDE 26 mmol/L (22-30); GFR AFRICAN-AMERICAN > 60; TOTAL PROTEIN 6.7 g/dL (6.3-8.3)
[2017-03-05 15:53] LABS: ALKALINE PHOSPHATASE 62 U/L (38-126); ALT/SGPT 31 U/L (21-72); AST/SGOT 40 U/L (17-59); BLOOD UREA NITROGEN 18 mg/dL (9-20); CALCIUM 8.4 mg/dl (8.6-10.4); GLUCOSE,RANDOM 92 mg/dL (75-110)
[2017-03-05] MEDS ORDERED: Piperacillin/Tazobact 3.375 GM in Sodium Chloride 100 ML IVPB STA (16:42)
[2017-03-05] MEDS ORDERED: Piperacillin/Tazobact 3.375 gm 100 ML IVPB ONE (16:52)
--- NOTE | 2017-03-05 17:51 | C.PDOC ---
History Of Present Illness The patient, a 26 y/o male, presents to the emergency department for evaluation of left hand swelling which has been intermittent for the past 1 month. Patient reports a history of IV drug abuse and notes his IV use has caused an infection. Patient was recently admitted on 02/27 for infection and signed out AMA with Rx for PO antibiotics. Patient notes the swelling and pain has worsened even with taking PO antibiotics, so he presents for further evaluation. Patient admits to IV Heroine and Cocaine abuse. Patient denies fever , chills, discharge. Time Seen by Provider: 03/05/17 14:49 Chief Complaint (Nursing): Finger,Hand,&Wrist History Per: Patient History/Exam Limitations: no limitations Onset/Duration Of Symptoms: Other (1 month ) Current Symptoms Are (Timing): Still Present Quality: "Pain" Additional History Per: Patient Past Medical History Reviewed: Historical Data, Nursing Documentation, Vital Signs Vital Signs: Last Vital Signs Temp 97.4 F L 03/05/17 18:28 Pulse 71 03/05/17 18:28 Resp 18 03/05/17 18:28 BP 113/66 03/05/17 18:28 Pulse Ox 97 03/05/17 19:28 - Medical History PMH: Anxiety, Depression Denies: Diabetes, Hepatitis, HIV, HTN, Chronic Kidney Disease, Seizures, Sexually Transmitted Disease Surgical History: No Surg Hx - [facility] Procedures DETOXIFICATION SERVICES FOR SUBSTANCE ABUSE TREATMENT (01/20/17) DRAINAGE OF L HAND SUBCU/FASCIA, OPEN APPROACH (02/15/17) EXCISION OF L HAND SUBCU/FASCIA, OPEN APPROACH (02/15/17) GROUP BRASS POURER FOR SUBSTANCE ABUSE TREATMENT, PSYCHOEDUCATION (05/13/16) INDIV BRASS POURER FOR SUBSTANCE ABUSE TREATMENT, PSYCHOEDUCATION (01/20/17) INDIV BRASS POURER FOR SUBSTANCE ABUSE, COGNITIVE BEHAVIORAL (01/20/17) INDIV PSYCHOTHERAPY FOR SUBSTANCE ABUSE TREATMENT, SUPPORT (01/20/17) MEDICATION MANAGEMENT (06/13/16) Family History: States: Unknown Family Hx - Social History Hx Tobacco Use: Yes Hx Alcohol Use: Yes Hx Substance Use: Yes (heroin/cocaine) - Immunization History Hx Tetanus Toxoid Vaccination: No Hx Influenza Vaccination: No Hx Pneumococcal Vaccination: No Review Of Systems Except As Marked, All Systems Reviewed And Found Negative. Musculoskeletal: Positive for: Other (+left hand swelling ) Physical Exam - Physical Exam Appears: Non-toxic, No Acute Distress Skin: Warm, Dry, Other ((+) some erythema diffusely throught body (pt notes this is chronic) +mild erythema to lateral aspect of right hand with some swelling. no fluctuance. +track vargas to b/l upper extremities (-) streaking) Head: Atraumatic, Normacephalic Eye(s): bilateral: Normal Inspection, EOMI Nose: Normal Oral Mucosa: Moist Neck: Normal ROM, Supple Chest: Symmetrical, No Deformity, No Tenderness Cardiovascular: Rhythm Regular, No Murmur Respiratory: Normal Breath Sounds, No Rales, No Rhonchi, No Wheezing Extremity: Normal ROM, No Tenderness, Capillary Refill (less than 2 seconds ), No Deformity, Swelling (mild to lateral aspect of right hand ) Pulses: Left Radial: Normal, Right Radial: Normal Neurological/Psych: Oriented x3, Normal Speech, Normal Cognition, Normal Motor, Normal Sensation Gait: Steady ED Course And Treatment - Laboratory Results Result Diagrams: 03/05/17 15:33 03/05/17 15:33 O2 Sat by Pulse Oximetry: 97 (on RA) Pulse Ox Interpretation: Normal Progress Note: labs ordered and reviewed. Pt received Zosyn IV. Pt was seen and evaluated by Dr Quick, agreed upon plan and admission. Case discussed with Dr. Howard who agrees with plan for admission. Disposition - Disposition Disposition: HOSPITALIZED Disposition Time: 18:33 Condition: STABLE - Clinical Impression Clinical Impression: Opioid abuse, Cellulitis of hand, right, IV drug abuse - PA / VICE PRESIDENT SALES / Resident Statement MD/DO has reviewed & agrees with the documentation as recorded. - Scribe Statement The provider has reviewed the documentation as recorded by the Scribe (Alie Forde) All medical record entries made by the Scribe were at my direction and personally dictated by me. I have reviewed the chart and agree that the record accurately reflects my personal performance of the history, physical exam, medical decision making, and the department course for this patient. I have also personally directed, reviewed, and agree with the discharge instructions and disposition.
[2017-03-05 21:39] VITALS: RESP 20
[2017-03-05 23:46] VITALS: PULSE 60
[2017-03-06] MEDS: Piperacillin/Tazobact 3.375 GM in Sodium Chloride 100 ML IVPB SCH ×2 (01:10→10:16)
[2017-03-06 07:34] LABS: CHLORIDE 104 mmol/L (98-107); POTASSIUM 4.5 mmol/L (3.6-5.2); SODIUM 138 mmol/L (132-148)
[2017-03-06 07:37] LABS: ALB/GLOB RATIO 1.4 (1.0-2.1); ALKALINE PHOSPHATASE 59 U/L (38-126); ALT/SGPT 20 U/L (21-72); AST/SGOT 37 U/L (17-59); BILIRUBIN,TOTAL 0.9 mg/dL (0.2-1.3); BLOOD UREA NITROGEN 17 mg/dL (9-20); CARBON DIOXIDE 21 mmol/L (22-30); GFR AFRICAN-AMERICAN > 60; GLUCOSE,RANDOM 83 mg/dL (75-110); TOTAL PROTEIN 6.7 g/dL (6.3-8.3)
[2017-03-06 07:38] LABS: CALCIUM 8.4 mg/dl (8.6-10.4)
[2017-03-06 08:00] VITALS: BP 108/69; TEMP 97.6; O2SAT 97
--- NOTE | 2017-03-06 11:14 | PCM.PSYCH ---
Initial Psychiatric Evaluation - Initial Psychiatric Evaluation Type of Admission: Voluntary Legal Status: Capacity Chief Complaint (in patient's own words): "I need to go " History of Present Illness and Precipitating Events: The pt is seen, chart reviewed and case discussed. Consult was requested for his drug use. He is well-known to the consumer loan underwriter from numerous previous consults, detox and psych admissions at [facility]. 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 He "lost everything" due to drugs, he admits. He had been to detox "more than 30 times" he claims. This time he is here for cellulitis due to IVDU but now he wants to leave. He was using "a lot" heroin and is in withdrawal now. Coiled Tubing Operator offered methadone but he thanked and said that he had just found out that he would go to shelter for a year instead of 10 years. And it's on Sunday, he claims. So, he wants to go out before he will be "locked up" He is warned against partying, overdosing and even using anything. He understood but not sure he will follow. 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 Current Medications: Active Medications Generic Name Dose Route Start Last Admin Trade Name Joe PRN Reason Stop Dose Admin Gabapentin 300 mg 03/05/17 22:15 03/06/17 10:16 Neurontin PO Not Given TID EMILIANO Piperacillin Sod/Tazobactam 100 mls @ 200 mls/hr 03/06/17 02:00 03/06/17 10: 16 Sod 3.375 gm/ Sodium Chloride IVPB Not Given Q8H EMILIANO Pneumococcal Polyvalent Vaccine 0.5 ml 03/07/17 10:00 Pneumovax 23 Vaccine IM 03/07/17 10:01 .ONCE ONE Quetiapine Fumarate 200 mg 03/05/17 22:15 03/05/17 22:49 Seroquel PO 200 mg HS EMILIANO Administration Sertraline HCl 50 mg 03/06/17 10:00 03/06/17 10:16 Zoloft PO Not Given DAILY EMILIANO Past Psychiatric History - Past Psychiatric History Previous Treatment History: Inpatient Pertinent Medical Hx (Current Medical&Sleep Prob, Allergies): Allergies Allergy/AdvReac Type Severity Reaction Status Date / Time buprenorphine Allergy Verified 03/05/17 14:05 buprenorphine HCl Allergy Verified 03/05/17 14:05 [From Suboxone] naloxone HCl [From Suboxone] Allergy Verified 03/05/17 14:05 Gabapentin [Neurontin] 300 mg PO TID #90 cap 01/24/17 QUEtiapine [SEROquel] 200 mg PO HS #30 tab 01/24/17 Sertraline [Zoloft] 50 mg PO DAILY #15 tab 02/02/17 Review of Systems - Psychiatric Psychiatric: Abnormal Sleep Pattern, Anxiety. absent: Hallucinations, Homicidal Ideation, Suicidal Ideation Mental Status Examination - Personal Presentation Personal Presentation: Looks stated age - Affect Affect: Broad - Motor Activity Motor Activity: Calm - Reliability in Providing Information Reliability in Providing Information: Good - Speech Speech: Organized - Mood Mood: Anxious - Formal Thought Process Formal Thought Process: No Impairment - Cognitive Functions Orientation: Person, Place, Situation, Time Sensorium: Alert Attention/Concentration: Attentive Estimate of Intelligence: Average Judgement: Imparied, as evidence by: Poor judgement Memory: Recent intact, as evidence by: Ability to recall events of the day, Remote intact, as evidenced by: Abilit to recall sig. life events - Risk Risk: Withdrawal, Diminished functioning - Strength & Assets Inventory Strength & Assets Inventory: Family support, Life experience - Limitations Limitations: Other DSM 5 DX - DSM 5 DSM 5 Diagnosis: Opioid withdrawal opioid use d/o - severe Personality d/o - unspecified ADHD r/o bipolar unspecified - Recommended/Plan of Treatment Treatment Recommendations and Plan of Treatment: Cleared for d/c as he is not an imminent risk and has capacity to make medical decisions. Return to ER if needed Stay away from drus, alcohol Stay safe from risk taking [facility]
--- NOTE | 2017-03-06 13:31 | CP.PCM.HP ---
History of Present Illness - History of Present Illness History of Present Illness: PT WAS ADMITTED WITH CELLULITIS OF R HAND SEC TO IVDA PT IS IVDA AND MULTIPLE DRUG ABUSE HAS MULTIPLE ADMISSION FOR CELLULITIS OF HAND AND DRUG ABUSE PT WILL RECEIVE IV AB Present on Admission - Present on Admission Any Indicators Present on Admission: No Past Patient History - Infectious Disease Hx of Infectious Diseases: None - Past Medical History & Family History Past Medical History?: Yes - Past Social History Smoking Status: Light Smoker < 10 Cigarettes Daily - CARDIAC Hx Hypertension: No - PULMONARY Hx Respiratory Disorders: No - NEUROLOGICAL Hx Seizures: No (from withdrawal as per pt) - HEENT Hx HEENT Problems: No - RENAL Hx Chronic Kidney Disease: No - ENDOCRINE/METABOLIC Hx Endocrine Disorders: No - HEMATOLOGICAL/ONCOLOGICAL Hx Human Immunodeficiency Virus (HIV): No - INTEGUMENTARY Hx Dermatological Problems: No - MUSCULOSKELETAL/RHEUMATOLOGICAL Hx Falls: No - GASTROINTESTINAL Hx Gastrointestinal Disorders: No - GENITOURINARY/GYNECOLOGICAL Hx Sexually Transmitted Disorders: No - PSYCHIATRIC Hx Anxiety: Yes Hx Depression: Yes Hx Substance Use: Yes (heroine) - SURGICAL HISTORY Hx Surgeries: Yes Other/Comment: abscess removal. - ANESTHESIA Hx Anesthesia: Yes Hx Anesthesia Reactions: No Hx Malignant Hyperthermia: No Has any member of the family had a problem w/ anesthesia?: No Meds Allergies/Adverse Reactions: Allergies Allergy/AdvReac Type Severity Reaction Status Date / Time buprenorphine Allergy Verified 03/05/17 14:05 buprenorphine HCl Allergy Verified 03/05/17 14:05 [From Suboxone] naloxone HCl [From Suboxone] Allergy Verified 03/05/17 14:05 Results - Vital Signs Recent Vital Signs: Last Vital Signs Temp 97.6 F 03/06/17 07:58 Pulse 60 03/06/17 07:58 Resp 20 03/06/17 07:58 BP 108/69 03/06/17 07:58 Pulse Ox 97 03/06/17 07:58 - Labs Result Diagrams: 03/05/17 15:33 03/06/17 07:13 Labs: Laboratory Results - last 24 hr 03/06/17 03/06/17 07:13 09:23 Sodium 138 Potassium 4.5 Chloride 104 Carbon Dioxide 21 L Anion Gap 18 BUN 17 Creatinine 1.3 Est GFR ( Amer) > 60 Est GFR (Non-Af Amer) > 60 Random Glucose 83 Calcium 8.4 L Total Bilirubin 0.9 AST 37 ALT 20 L D Alkaline Phosphatase 59 Total Protein 6.7 Albumin 3.8 Globulin 2.8 Albumin/Globulin Ratio 1.4 Urine Opiates Screen Positive Urine Methadone Screen Negative Ur Barbiturates Screen Negative Ur Phencyclidine Scrn Negative Ur Amphetamines Screen Negative U Benzodiazepines Scrn Negative U Oth Cocaine Metabols Positive U Cannabinoids Screen Negative
--- NOTE | 2017-03-06 13:32 | CP.PCM.DIS ---
Provider - Provider Date of Admission: 03/05/17 17:23 Attending physician: Onel Howard MD Time Spent in preparation of Discharge (in minutes): 30 Hospital Course - Lab Results Lab Results: Most Recent Lab Values WBC 6.8 K/uL (4.8-10.8) 03/05/17 15:33 RBC 5.14 Mil/uL (4.40-5.90) 03/05/17 15:33 Hgb 14.1 g/dL (12.0-18.0) 03/05/17 15:33 Hct 42.5 % (35.0-51.0) 03/05/17 15:33 MCV 82.6 fL (80.0-94.0) 03/05/17 15:33 MCH 27.5 pg (27.0-31.0) 03/05/17 15:33 MCHC 33.2 g/dL (33.0-37.0) 03/05/17 15:33 RDW 15.2 % (11.5-14.5) H 03/05/17 15:33 Plt Count 255 K/uL (130-400) 03/05/17 15:33 MPV 7.3 fL (7.2-11.7) 03/05/17 15:33 Neut % (Auto) 63.7 % (50.0-75.0) 03/05/17 15:33 Lymph % (Auto) 19.6 % (20.0-40.0) L 03/05/17 15:33 [place] % (Auto) 9.5 % (0.0-10.0) 03/05/17 15:33 Eos % (Auto) 6.7 % (0.0-4.0) H 03/05/17 15:33 Baso % (Auto) 0.5 % (0.0-2.0) 03/05/17 15:33 Neut # 4.3 K/uL (1.8-7.0) 03/05/17 15:33 Lymph # 1.3 K/uL (1.0-4.3) 03/05/17 15:33 [place] # 0.6 K/uL (0.0-0.8) 03/05/17 15:33 Eos # 0.5 K/uL (0.0-0.7) 03/05/17 15:33 Baso # 0.0 K/uL (0.0-0.2) 03/05/17 15:33 Sodium 138 mmol/L (132-148) 03/06/17 07:13 Potassium 4.5 mmol/L (3.6-5.2) 03/06/17 07:13 Chloride 104 mmol/L (98-107) 03/06/17 07:13 Carbon Dioxide 21 mmol/L (22-30) L 03/06/17 07:13 Anion Gap 18 (10-20) 03/06/17 07:13 BUN 17 mg/dL (9-20) 03/06/17 07:13 Creatinine 1.3 MG/DL (0.8-1.5) 03/06/17 07:13 Est GFR ( Amer) > 60 03/06/17 07:13 Est GFR (Non-Af Amer) > 60 03/06/17 07:13 Random Glucose 83 mg/dL (75-110) 03/06/17 07:13 Calcium 8.4 mg/dl (8.6-10.4) L 03/06/17 07:13 Total Bilirubin 0.9 mg/dL (0.2-1.3) 03/06/17 07:13 AST 37 U/L (17-59) 03/06/17 07:13 ALT 20 U/L (21-72) L D 03/06/17 07:13 Alkaline Phosphatase 59 U/L (38-126) 03/06/17 07:13 Total Protein 6.7 g/dL (6.3-8.3) 03/06/17 07:13 Albumin 3.8 g/dL (3.5-5.0) 03/06/17 07:13 Globulin 2.8 gm/dL (2.2-3.9) 03/06/17 07:13 Albumin/Globulin Ratio 1.4 (1.0-2.1) 03/06/17 07:13 Urine Opiates Screen Positive (NEGATIVE) 03/06/17 09:23 Urine Methadone Screen Negative (NEGATIVE) 03/06/17 09:23 Ur Barbiturates Screen Negative (NEGATIVE) 03/06/17 09:23 Ur Phencyclidine Scrn Negative (NEGATIVE) 03/06/17 09:23 Ur Amphetamines Screen Negative (NEGATIVE) 03/06/17 09:23 U Benzodiazepines Scrn Negative (NEGATIVE) 03/06/17 09:23 U Oth Cocaine Metabols Positive (NEGATIVE) 03/06/17 09:23 U Cannabinoids Screen Negative (NEGATIVE) 03/06/17 09:23 - Hospital Course Hospital Course: PT WAS ADMITTED WITH CELLULITIS OF R HAND SEC TO IVDA PT IS IVDA AND MULTIPLE DRUG ABUSE HAS MULTIPLE ADMISSION FOR CELLULITIS OF HAND AND DRUG ABUSE PT WILL RECEIVE IV AB IN PRESENCE OF PSYCH AND HOUSE PT SIGHNED OUT AMA NO RX GIVEN SEN FOR CULTURE NOT AVAILABLE Discharge Plan - Follow Up Plan Condition: STABLE Disposition: AGAINST MEDICAL ADVICE
[2017-03-07] MEDS ORDERED: Pneumococcal 23-Valent Vaccine IM ONE (10:00)
== END 2017-03-06 11:51 | disposition left against medical advice (07) | DRG 277 ==
LOC: C.ER 13:59 → C.9E 17:23 → C.3T 20:54
PROVIDERS: ADMIT Internal Medicine Cardiovascular Disease; ATTEND Internal Medicine Cardiovascular Disease
DX: L03.113 Cellulitis of right upper limb (principal); F11.10 Opioid abuse, uncomplicated; F14.10 Cocaine abuse, uncomplicated; F17.210 Nicotine dependence, cigarettes, uncomplicated; F41.9 Anxiety disorder, unspecified; F32.9 Major depressive disorder, single episode, unspecified

== ENCOUNTER 2017-03-10 16:38 | Emergency (ER) | payer MEDICAID ==
[2017-03-10 16:39] VITALS: BMI 31.0
--- NOTE | 2017-03-10 17:06 | C.PDOC ---
History Of Present Illness <Isabelle Quick - Last Filed: 03/10/17 18:53> <David Saeed - Last Filed: 03/10/17 21:49> 26-year-old male, presents to the emergency department, stating "I am a nut job , and I need to be admitted. Patient states he ran out of his Zoloft and Seraquil one week ago. States he is abusing Cocaine and Heroin, and needs detox. Patient's last use (cocaine) last night. He is requesting psych admission. No other complaints at this time. (AbdelrahmanIsabelle) History Per: Patient History/Exam Limitations: no limitations <Isabelle Quick - Last Filed: 03/10/17 18:53> <David Saeed - Last Filed: 03/10/17 21:49> Time Seen by Provider: 03/10/17 16:47 Chief Complaint (Nursing): Psychiatric Evaluation Past Medical History Reviewed: Historical Data, Nursing Documentation, Vital Signs - Medical History PMH: Anxiety, Depression Denies: Diabetes, Hepatitis, HIV, HTN, Chronic Kidney Disease, Seizures ( from withdrawal as per pt), Sexually Transmitted Disease Family History: States: No Known Family Hx - Social History Hx Tobacco Use: Yes Hx Alcohol Use: Yes Hx Substance Use: Yes (heroin, cocaine,) - Immunization History Hx Tetanus Toxoid Vaccination: No Hx Influenza Vaccination: No Hx Pneumococcal Vaccination: No <Isabelle Quick - Last Filed: 03/10/17 18:53> Review Of Systems Except As Marked, All Systems Reviewed And Found Negative. Cardiovascular: Negative for: Chest Pain Respiratory: Negative for: Shortness of Breath Psych: Negative for: Suicidal ideation <Isabelle Quick - Last Filed: 03/10/17 18:53> Physical Exam - Physical Exam Appears: Non-toxic, No Acute Distress, Other (CALM, COOPERATIVE. NO SIGNS OR SX OF ACUTE INTOX) Skin: Warm, Dry, No Rash Neck: Normal ROM Respiratory: No Accessory Muscle Use Extremity: Normal ROM Neurological/Psych: Oriented x3 <Isabelle Quick - Last Filed: 03/10/17 18:53> ED Course And Treatment - Laboratory Results Result Diagrams: 03/10/17 18:33 03/10/17 18:33 O2 Sat by Pulse Oximetry: 97 <Isabelle Quick Last Filed: 03/10/17 18:53> - Laboratory Results Result Diagrams: 03/10/17 18:33 03/10/17 18:33 <David Saeed - Last Filed: 03/10/17 21:49> Progress - Data Reviewed Data Reviewed: Lab, Old records - Continuity of Care Discussed pt. case with managing consultant clinical professor/specialty: Psychiatry <Isabelle Quick - Last Filed: 03/10/17 18:53> <David Saeed - Last Filed: 03/10/17 21:49> - Re-Evaluation Re-evaluation Note: 03/10/17 17:05 D/W CRISIS WILL EVAL IN ER 03/10/17 19:00 s/o dr saeed fu labs, dispo (Isabelle Quick) Disposition <Isabelle Quick - Last Filed: 03/10/17 18:53> Counseled Patient/Family Regarding: Need For Followup - Disposition Disposition Time: 20:57 <David Saeed - Last Filed: 03/10/17 21:49> - Disposition Disposition: HOME/ ROUTINE Condition: GOOD Forms: General Discharge Instructions - Clinical Impression Clinical Impression: Opiate abuse, continuous - Scribe Statement The provider has reviewed the documentation as recorded by the Scribe <Isabelle Quick - Last Filed: 03/10/17 18:53> <David Saeed - Last Filed: 03/10/17 21:49> - Scribe Statement Gela Blancas All medical record entries made by the Scribe were at my direction and personally dictated by me. I have reviewed the chart and agree that the record accurately reflects my personal performance of the history, physical exam, medical decision making, and the department course for this patient. I have also personally directed, reviewed, and agree with the discharge instructions and disposition. (Isabelle Quick) Addendum <Isabelle Quick - Last Filed: 03/10/17 18:53> <David Saeed - Last Filed: 03/10/17 21:49> Addendum: Pt seen by PES, and after evaluation and discussion with operational assistant psy pt to be discharged to OP services (David Saeed)
[2017-03-10 18:40] LABS: BASO % 0.4 % (0.0-2.0); EOS # 0.4 K/uL (0.0-0.7); EOS % 5.1 % (0.0-4.0); HEMATOCRIT 43.3 % (35.0-51.0); LYMPH # 1.8 K/uL (1.0-4.3); LYMPH % 22.8 % (20.0-40.0); MEAN CELL VOLUME 82.1 fL (80.0-94.0); MEAN CORPUSCULAR HEMOGLOBIN 27.5 pg (27.0-31.0); MEAN CORPUSCULAR HGB CONC 33.5 g/dL (33.0-37.0); MONO # 0.4 K/uL (0.0-0.8); MONO % 5.1 % (0.0-10.0); RED CELL DISTRIBUTION WIDTH 14.8 % (11.5-14.5); WHITE BLOOD COUNT 7.9 K/uL (4.8-10.8)
[2017-03-10 18:48] LABS: CHLORIDE 104 mmol/L (98-107); POTASSIUM 4.2 mmol/L (3.6-5.2); SODIUM 140 mmol/L (132-148)
[2017-03-10 18:50] LABS: ALB/GLOB RATIO 1.6 (1.0-2.1); ALKALINE PHOSPHATASE 59 U/L (38-126); AST/SGOT 24 U/L (17-59); BILIRUBIN,TOTAL 0.6 mg/dL (0.2-1.3); BLOOD UREA NITROGEN 16 mg/dL (9-20); CARBON DIOXIDE 26 mmol/L (22-30); GFR AFRICAN-AMERICAN > 60; TOTAL PROTEIN 6.9 g/dL (6.3-8.3)
[2017-03-10 18:51] LABS: ALCOHOL SERUM < 10 mg/dl (0-10); ALT/SGPT 24 U/L (21-72); GLUCOSE,RANDOM 89 mg/dL (75-110)
[2017-03-10 19:53] VITALS: RESP 18
[2017-03-10 19:54] LABS: RBC URINE 1 /hpf (0-3); URINE BILIRUBIN NEGATIVE (NEGATIVE); URINE BLOOD NEGATIVE (NEGATIVE); URINE COLOR Yellow (YELLOW); URINE GLUCOSE (UA) NORMAL (Normal); URINE KETONE NEGATIVE (NEGATIVE); URINE LEUKOCYTE ESTERASE NEG Leu/uL (Negative); URINE PROTEIN NEGATIVE (NEGATIVE); URINE UROBILINOGEN NORMAL mg/dL (0.2-1.0)
[2017-03-10 21:40] VITALS: BP 110/69; PULSE 68; TEMP 98; O2SAT 98
== END 2017-03-10 21:32 | disposition home or self-care (01) ==
LOC: C.ER 16:38
DX: F11.10 Opioid abuse, uncomplicated (principal)

== ENCOUNTER 2017-03-16 11:36 | Inpatient (IN) | payer MEDICAID ==
[2017-03-16 11:36] VITALS: BMI 31.0
[2017-03-16 12:30] LABS: BASO % 0.2 % (0.0-2.0); EOS # 0.2 K/uL (0.0-0.7); EOS % 3.4 % (0.0-4.0); HEMATOCRIT 44.2 % (35.0-51.0); LYMPH # 0.9 K/uL (1.0-4.3); LYMPH % 13.4 % (20.0-40.0); MEAN CELL VOLUME 81.1 fL (80.0-94.0); MEAN CORPUSCULAR HEMOGLOBIN 27.1 pg (27.0-31.0); MEAN CORPUSCULAR HGB CONC 33.4 g/dL (33.0-37.0); MEAN PLATELET VOLUME 7.4 fL (7.2-11.7); MONO # 0.6 K/uL (0.0-0.8); MONO % 8.3 % (0.0-10.0); RED CELL DISTRIBUTION WIDTH 14.7 % (11.5-14.5)
[2017-03-16 12:38] LABS: CHLORIDE 98 mmol/L (98-107)
[2017-03-16 12:39] LABS: POTASSIUM 3.9 mmol/L (3.6-5.2); SODIUM 135 mmol/L (132-148)
[2017-03-16 12:40] LABS: GFR AFRICAN-AMERICAN > 60
[2017-03-16 12:41] LABS: ALB/GLOB RATIO 2.6 (1.0-2.1); ALKALINE PHOSPHATASE 66 U/L (38-126); ALT/SGPT 26 U/L (21-72); AST/SGOT 25 U/L (17-59); BILIRUBIN,TOTAL 0.7 mg/dL (0.2-1.3); BLOOD UREA NITROGEN 14 mg/dL (9-20); CALCIUM 9.1 mg/dl (8.6-10.4); CARBON DIOXIDE 26 mmol/L (22-30); GLUCOSE,RANDOM 92 mg/dL (75-110); TOTAL PROTEIN 7.2 g/dL (6.3-8.3)
[2017-03-16 12:42] LABS: ALCOHOL SERUM < 10 mg/dl (0-10)
[2017-03-16 12:57] LABS: RBC URINE 3 /hpf (0-3); URINE BILIRUBIN NEGATIVE (NEGATIVE); URINE BLOOD NEGATIVE (NEGATIVE); URINE COLOR Yellow (YELLOW); URINE GLUCOSE (UA) NORMAL (Normal); URINE KETONE NEGATIVE (NEGATIVE); URINE LEUKOCYTE ESTERASE NEG Leu/uL (Negative); URINE PROTEIN NEGATIVE (NEGATIVE); URINE UROBILINOGEN NORMAL mg/dL (0.2-1.0)
--- NOTE | 2017-03-16 14:03 | C.PDOC ---
History Of Present Illness 26 year old male presents to the ED seeking detox from heroin and coke. Patient notes last use was 10pm last night and denies any suicidal or homicidal ideations or the use of any other drugs. Time Seen by Provider: 03/16/17 11:46 Chief Complaint (Nursing): Psychiatric Evaluation History Per: Patient History/Exam Limitations: no limitations Suicide/Self Injury Attempted (Context): None Associated Symptoms: denies: Suicidal Thoughts Involuntary Hold By: None Recent travel outside of the [place]: No Past Medical History Reviewed: Historical Data, Nursing Documentation, Vital Signs Vital Signs: Last Vital Signs Temp 97.4 F L 03/16/17 17:08 Pulse 68 03/16/17 17:08 Resp 18 03/16/17 17:08 BP 105/57 L 03/16/17 17:08 Pulse Ox 96 03/16/17 17:08 - Medical History PMH: Anxiety, Depression, Seizures (from withdrawal as per pt) - [facility] DETOXIFICATION SERVICES FOR SUBSTANCE ABUSE TREATMENT (01/20/17) DRAINAGE OF L HAND SUBCU/FASCIA, OPEN APPROACH (02/15/17) EXCISION OF L HAND SUBCU/FASCIA, OPEN APPROACH (02/15/17) GROUP OWNER PROFESSIONAL ENGINEER FOR SUBSTANCE ABUSE TREATMENT, PSYCHOEDUCATION (05/13/16) INDIV OWNER PROFESSIONAL ENGINEER FOR SUBSTANCE ABUSE TREATMENT, PSYCHOEDUCATION (01/20/17) INDIV OWNER PROFESSIONAL ENGINEER FOR SUBSTANCE ABUSE, COGNITIVE BEHAVIORAL (01/20/17) INDIV PSYCHOTHERAPY FOR SUBSTANCE ABUSE TREATMENT, SUPPORT (01/20/17) MEDICATION MANAGEMENT (06/13/16) Family History: States: Unknown Family Hx - Social History Hx Tobacco Use: Yes Hx Alcohol Use: Yes Hx Substance Use: Yes (heroin, cocaine,) - Immunization History Hx Tetanus Toxoid Vaccination: No Hx Influenza Vaccination: No Hx Pneumococcal Vaccination: No Review Of Systems Constitutional: Negative for: Fever, Chills, Sweats Cardiovascular: Negative for: Chest Pain, Palpitations Respiratory: Negative for: Cough, Shortness of Breath Gastrointestinal: Negative for: Nausea, Vomiting, Abdominal Pain, Diarrhea Psych: Negative for: Suicidal ideation Physical Exam - Physical Exam Appears: Non-toxic, No Acute Distress Skin: Warm, Dry Head: Atraumatic, Normacephalic Eye(s): bilateral: Normal Inspection, EOMI Oral Mucosa: Moist Neck: Supple Chest: Symmetrical, No Deformity Cardiovascular: Rhythm Regular Respiratory: No Rales, No Rhonchi, No Stridor, No Wheezing Gastrointestinal/Abdominal: Soft, No Tenderness, No Distention, No Guarding, No Rebound Extremity: Normal ROM, No Tenderness Neurological/Psych: Oriented x3, Normal Speech Gait: Steady ED Course And Treatment - Laboratory Results Result Diagrams: 03/16/17 12:25 03/16/17 12:25 Lab Interpretation: No Acute Changes O2 Sat by Pulse Oximetry: 95 (room air ) Pulse Ox Interpretation: Normal Medical Decision Making Medical Decision Making: Labs ordered and reviewed. In my clinical judgment patient is medically cleared and stable for admission. Patient to be admitted for detox under Dr Noonan service Disposition - Disposition Disposition: HOSPITALIZED Disposition Time: 13:30 Condition: STABLE - POA Present On Arrival: None - Clinical Impression Clinical Impression: Opioid use disorder, severe, dependence - Scribe Statement The provider has reviewed the documentation as recorded by the Scribe Aga Mary All medical record entries made by the Scribe were at my direction and personally dictated by me. I have reviewed the chart and agree that the record accurately reflects my personal performance of the history, physical exam, medical decision making, and the department course for this patient. I have also personally directed, reviewed, and agree with the discharge instructions and disposition. Decision To Admit - Pt Status Changed To: Hospital Disposition Of: Inpatient - Admit Certification Admit to Inpatient:: After my assessment, the patient will require hospitalization for at least two midnights. This is because of the severity of symptoms shown, intensity of services needed, and/or the medical risk in this patient being treated as an outpatient. - InPatient: Physician Admission Certification: I certify that this patient requires 2 or more midnights of care for the following reason:: Patient to be admitted for detox unit for opiate dependence - . Bed Request Type: Detox Admitting Physician: Keagan Noonan Patient Diagnosis: Opioid use disorder, severe, dependence
[2017-03-16] MEDS ORDERED: Aluminum Hydroxide/Magnesium Hydroxide Susp (30 mL) PO PRN (14:08)
--- NOTE | 2017-03-16 14:17 | PCM.PSYCH ---
Initial Psychiatric Evaluation - Initial Psychiatric Evaluation Type of Admission: Voluntary Legal Status: Capacity Chief Complaint (in patient's own words): "I don't want to " History of Present Illness and Precipitating Events: The patient is seen, chart reviewed and case discussed. 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 He is well-known to the bond underwriter and staff from previous detox, psych and medicine admissions. He completed detox 2 months ago but since then he has relapsed multiple times and currently using 20-25 bags of intravenous heroin. He also smokes crack cocaine. Last use was last night around 10 PM. He currently he has withdrawal symptoms and he states he wants to go to [facility] and if not and other rehabilitation, after discharge. Denies other use but benzos on and off. He has an extensive history of substance use with numerous detoxes and rehabs. He also used methadone and Vivitrol but he claims he is allergic to be buprenorphine. Past psych hx: Possible bipolar disorder and maybe ADHD history. Uses Seroquel at bedtime. No suicide attempts. Family psych history: Some relatives have alcohol dependence Medical history: Erythromelalgia. Stable now and will take low dose ASA. Current Medications: Active Medications Generic Name Dose Route Start Last Admin Trade Name Freq PRN Reason Stop Dose Admin Al Hydrox/Mg Hydrox/Simethicone 30 ml 03/16/17 14:08 Maalox 30 Ml PO TID PRN Indigestion / Heartburn Clonidine HCl 0.1 mg 03/16/17 14:08 Catapres PO Q8 PRN COWS Score More or Equal to 5 Gabapentin 300 mg 03/16/17 18:00 Neurontin PO BID EMILIANO Hydroxyzine HCl 50 mg 03/16/17 14:09 Atarax PO Q6H PRN Anxiety Ibuprofen 600 mg 03/16/17 14:09 Motrin Tab PO Q6H PRN Pain, moderate (4-7) Loperamide HCl 2 mg 03/16/17 14:08 Imodium PO Q8 PRN Diarrhea Lorazepam 1 mg 03/16/17 14:09 Ativan PO Q6H PRN agitation, max 3x/24h Ondansetron HCl 4 mg 03/16/17 14:08 Zofran Tab PO Q8 PRN Nausea/Vomiting Trazodone HCl 100 mg 03/16/17 14:09 Desyrel PO HS PRN Insomnia Past Psychiatric History - Past Psychiatric History Previous Treatment History: Inpatient Pertinent Medical Hx (Current Medical&Sleep Prob, Allergies): Allergies Allergy/AdvReac Type Severity Reaction Status Date / Time buprenorphine Allergy Verified 03/16/17 11:44 buprenorphine HCl Allergy Verified 03/16/17 11:44 [From Suboxone] naloxone HCl [From Suboxone] Allergy Verified 03/16/17 11:44 QUEtiapine [SEROquel] 200 mg PO HS #30 tab 01/24/17 Cephalexin [cephalexin] 500 mg PO BID 03/10/17 Sulfamethoxazole/Trimethoprim [Bactrim DS 800 mg-160 mg] 1 tab PO DAILY Gabapentin [Neurontin] 600 mg PO TID 03/16/17 Review of Systems - Psychiatric Psychiatric: Abnormal Sleep Pattern, Anxiety, Difficulty Concentrating, Irritability. absent: Hallucinations, Homicidal Ideation, Suicidal Ideation Mental Status Examination - Personal Presentation Personal Presentation: Looks stated age - Affect Affect: Constricted - Motor Activity Motor Activity: Calm - Reliability in Providing Information Reliability in Providing Information: Good - Speech Speech: Organized - Mood Mood: Anxious - Formal Thought Process Formal Thought Process: No Impairment - Cognitive Functions Orientation: Person, Place, Situation, Time Sensorium: Alert Attention/Concentration: Attentive Estimate of Intelligence: Average Judgement: Intact, as evidence by: Insight regarding need for hospitalization Memory: Recent intact, as evidence by: Ability to recall events of the day, Remote intact, as evidenced by: Abilit to recall sig. life events - Risk Risk: Withdrawal, Diminished functioning - Strength & Assets Inventory Strength & Assets Inventory: Family support, Employment history, Cooperative - Limitations Limitations: Other DSM 5 DX - DSM 5 DSM 5 Diagnosis: Opioid withdrawal opioid use d/o - severe Cocaine use d/o - severe Sedative hypnotic use d/o- moderate Bipolar d/o -last episode depressed - Recommended/Plan of Treatment Treatment Recommendations and Plan of Treatment: Methadone detox Gabapentin for augmentation As needed meds Attend groups and activities SD for abstinence and CBT for relapse prevention Support and psychoeducation Consider and encourage MAT Refer to after care at [facility] or other rehab 33 min Projected ELOS: 4 days Prognosis: good with treatment Discharge Plan and Discharge Criteria: No wdw sxs Refer to rehab and consider Vivitrol shot - Smoking Cessation Smoking Cessation Initiated: Yes
--- NOTE | 2017-03-17 09:32 | PCM.PYCHPN ---
Psychiatric Progress Note - Psychiatric Progress Note Patient seen today, length of contact: 16 min Patient Chief Complaint: "I am withdrawing but it's OK" Problems Identified/Issues Discussed: The pt is seen, chart reviewed, case discussed with staff. Support given, CBT and RI used briefly No new symptoms reported, improving slowly and needs some more time No SEs from medications, risks discussed. After care discussed Medication Change: Yes (detox changes daily) Medical Record Reviewed: Yes Mental Status Examination - Cognitive Function Orientation: Person, Place, Situation, Time Memory: Intact Attention: WNL Concentration: Poor Association: WNL Fund of Knowledge: WNL - Mood Mood: Anxious - Affect Affect: Constricted - Speech Speech: Appropriate - Formal Thought Process Formal Thought Process: No Impairment - Suicidal Ideation Suicidal Ideation: No - Homicidal Ideation Homicidal Ideation: No Goal/Treatment Plan - Goal/Treatment Plan Need for Continued Stay: Discharge may exacerbated symptoms, Severe functional impairment Progress Toward Problem(s) and Goals/Treatment Plan: Methadone detox Gabapentin for augmentation As needed meds Attend groups and activities RI for abstinence and CBT for relapse prevention Support and psychoeducation Consider and encourage MAT Refer to after care at [facility] or other rehab Estimated Date of D/C: 03/20/17
--- NOTE | 2017-03-18 23:55 | PCM.PYCHPN ---
Psychiatric Progress Note - Psychiatric Progress Note Patient seen today, length of contact: 15 min Patient Chief Complaint: "I am better" Problems Identified/Issues Discussed: The pt is seen, chart reviewed, case discussed with staff. The pt is compliant with medications and reports no side-effects. Symptoms are improving but needs more time to stabilize. After care discussed, support and psychoeducation given. Medication Change: Yes (detox changes daily) Medical Record Reviewed: Yes Mental Status Examination - Cognitive Function Orientation: Person, Place, Situation, Time Memory: Intact Attention: WNL Concentration: Poor Association: WNL Fund of Knowledge: WNL - Mood Mood: Anxious - Affect Affect: Constricted - Speech Speech: Appropriate - Formal Thought Process Formal Thought Process: No Impairment - Suicidal Ideation Suicidal Ideation: No - Homicidal Ideation Homicidal Ideation: No Goal/Treatment Plan - Goal/Treatment Plan Need for Continued Stay: Discharge may exacerbated symptoms, Severe functional impairment Progress Toward Problem(s) and Goals/Treatment Plan: Methadone detox Gabapentin for augmentation As needed meds Attend groups and activities IA for abstinence and CBT for relapse prevention Support and psychoeducation Consider and encourage MAT Refer to after care at [facility] or other rehab Estimated Date of D/C: 03/20/17
--- NOTE | 2017-03-19 13:25 | PCM.PYCHPN ---
Psychiatric Progress Note - Psychiatric Progress Note Patient seen today, length of contact: 18 min Patient Chief Complaint: "I am bored" Problems Identified/Issues Discussed: The pt is seen, chart reviewed, case discussed with staff. Support given, CBT and IN used briefly No new symptoms reported, improving slowly and needs some more time No SEs from medications, risks discussed. After care discussed and he is NOW having cold feet about going to rehab and again, as before, he feels like "if I am going to nursing home, why spend time in rehab? " Risks of not doing that, incl. OD and , discussed. IN used He agreed to stay and go to a rehab, ie [facility], but he is still on the fence. He even wanted to ask his time study observer if he has to go. Medication Change: Yes (detox changes daily) Medical Record Reviewed: Yes Mental Status Examination - Cognitive Function Orientation: Person, Place, Situation, Time Memory: Intact Attention: WNL Concentration: Poor Association: WNL Fund of Knowledge: WNL - Mood Mood: Anxious - Affect Affect: Constricted - Speech Speech: Appropriate - Formal Thought Process Formal Thought Process: No Impairment - Suicidal Ideation Suicidal Ideation: No - Homicidal Ideation Homicidal Ideation: No Goal/Treatment Plan - Goal/Treatment Plan Need for Continued Stay: Discharge may exacerbated symptoms, Severe functional impairment Progress Toward Problem(s) and Goals/Treatment Plan: Methadone detox Gabapentin for augmentation As needed meds Attend groups and activities IN for abstinence and CBT for relapse prevention Support and psychoeducation Consider and encourage MAT Refer to after care at [facility] or other rehab 5 mg methaodne added to prevent further wdw sxs and prevent relapse. Estimated Date of D/C: 03/20/17
[2017-03-19 15:42] VITALS: O2SAT 99
--- NOTE | 2017-03-20 08:46 | PCM.PYCHDC ---
Mental Status Examination - Mental Status Examination Orientation: Person, Place, Situation, Time Memory: Intact Mood: Anxious Affect: Broad Speech: Appropriate Attention: WNL Concentration: WNL Association: WNL Fund of Knowledge: WNL Formal Thought Process: No Impairment Suicidal Ideation: No Current Homicidal Ideation?: No Discharge Summary - Discharge Note Reason for Hospitalization: Heroin detox Psychiatric History (includes Medical, Family, Personal Hx): Admissions in the past but drug-related Consultations:: List each consultation separately and include: 1. Reason for request. 2. Findings. 3. Follow-up Summary of Hospital Course include:: 1. Description of specific treatment plan utilized for patients during their course of treatmen. 2. Summarize the time- course for resolution of acute symptoms and/or regressed behaviors. 3. Describe issues identified and worked on during hospitalization. 4. Describe medication utilized. 5. Describe medical problems identified and treated. 6. Reassessment of suicide risk Summary of Hospital Course: On admission: The patient is seen, chart reviewed and case discussed. 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 He is well-known to the selling underwriter and staff from previous detox, psych and medicine admissions. He completed detox 2 months ago but since then he has relapsed multiple times and currently using 20-25 bags of intravenous heroin. He also smokes crack cocaine. Last use was last night around 10 PM. He currently he has withdrawal symptoms and he states he wants to go to [facility] and if not and other rehabilitation, after discharge. Denies other use but benzos on and off. He has an extensive history of substance use with numerous detoxes and rehabs. He also used methadone and Vivitrol but he claims he is allergic to be buprenorphine. Past psych hx: Possible bipolar disorder and maybe ADHD history. Uses Seroquel at bedtime. No suicide attempts. Family psych history: Some relatives have alcohol dependence Medical history: Erythromelalgia. Stable now and will take low dose ASA. Hospital course: The pt was admitted and started on treatment with psychotherapy, support, psychoeducation and medications. NC and CBT used. The pt attended groups and activities, as well as milieu therapy. All the risks and benefits of medications are discussed and the patient understood and agreed. The patient improved with the treatment provided and discharged as planned. After care discussed with the patient. He was not accepted by [facility] He was enrolled in [facility] and got help from them and left to meet with their worker. He was more motivated this time (>10 admissions) but since he is likely facing 1 + year penitentiary time he has a side that tells him to just use and not to worry about treatment. All risks discussed. His mo was supportive too. - Final Diagnosis (DSM 5) Condition upon Discharge: STABLE DSM 5: Opioid withdrawal opioid use d/o - severe Cocaine use d/o - severe Sedative hypnotic use d/o- moderate Bipolar d/o -last episode depressed Disposition: HOME/ ROUTINE Follow-up Treatment Plan: Continue below medications after discharge. Follow after care plan as discussed above. Use relapse prevention skills. Return to ER or call 911 if suicidal, homicidal or symptoms relapse. Stay away from stress, alcohol and drugs. Use relaxation techniques. See primary doctor once a year and get labs. Prescriptions/Medication Reconciliation: Gabapentin [Neurontin] 400 mg PO TID #90 cap QUEtiapine [SEROquel] 200 mg PO HS #30 tab traZODone [Desyrel] 100 mg PO HS PRN #30 tab PRN Reason: Insomnia - Smoking Cessation Smoking Cessation Medication prescribed: No - Antipsychotic Medications Pt discharged on 2 or more routine antipsychotic medications: No
[2017-03-20 10:20] VITALS: BP 120/82; PULSE 80; RESP 17; TEMP 97.8
== END 2017-03-20 09:45 | disposition home or self-care (01) | DRG 745 ==
LOC: C.ER 11:36 → C.7D 13:31
PROVIDERS: ADMIT Psychiatry & Neurology Psychiatry; ATTEND Psychiatry & Neurology Psychiatry
PROC: HZ2ZZZZ Detoxification Services for Substance Abuse Treatment (ICD-10-PCS; principal; 2017-03-16)
PROC: HZ52ZZZ Individual Psychotherapy for Substance Abuse Treatment, Cognitive-Behavioral (ICD-10-PCS; 2017-03-16)
PROC: GZHZZZZ Group Psychotherapy (ICD-10-PCS; 2017-03-16)
PROC: HZ56ZZZ Individual Psychotherapy for Substance Abuse Treatment, Psychoeducation (ICD-10-PCS; 2017-03-16)
PROC: HZ59ZZZ Individual Psychotherapy for Substance Abuse Treatment, Supportive (ICD-10-PCS; 2017-03-16)
DX: F11.23 Opioid dependence with withdrawal (principal); F31.9 Bipolar disorder, unspecified; F13.10 Sedative, hypnotic or anxiolytic abuse, uncomplicated; F41.9 Anxiety disorder, unspecified; F14.10 Cocaine abuse, uncomplicated; F17.210 Nicotine dependence, cigarettes, uncomplicated; I73.81 Erythromelalgia; G47.00 Insomnia, unspecified

== ENCOUNTER 2017-04-04 11:35 | Emergency (ER) | payer MEDICAID ==
[2017-04-04 11:35] VITALS: BMI 31.0
[2017-04-04 11:49] VITALS: BP 105/72; PULSE 73
[2017-04-04 12:06] VITALS: RESP 18; TEMP 98; O2SAT 94
--- NOTE | 2017-04-04 14:07 | C.PDOC ---
History Of Present Illness 26-year-old male, presents to the emergency department with requesting detox. patient with a Hx of IV Heroin abuse. States he has been using x8 years. States that he has been experiencing redness in arm x3 days, at site of IV insertion. Pt was given antibiotics, that he only took for one day. Denies any SI/HI. Time Seen by Provider: 04/04/17 12:55 Chief Complaint (Nursing): Substance Abuse History Per: Patient History/Exam Limitations: no limitations Past Medical History Reviewed: Historical Data, Nursing Documentation, Vital Signs Vital Signs: Last Vital Signs Temp 98 F 04/04/17 11:54 Pulse 73 04/04/17 11:54 Resp 18 04/04/17 11:54 BP 105/72 04/04/17 11:54 Pulse Ox 94 L 04/04/17 17:02 - Medical History PMH: Anxiety, Bipolar Disorder, Depression, Seizures (from withdrawal as per pt) Denies: Diabetes, Hepatitis, HIV, HTN, Chronic Kidney Disease, Sexually Transmitted Disease - [facility] Procedures DETOXIFICATION SERVICES FOR SUBSTANCE ABUSE TREATMENT (03/16/17) DRAINAGE OF L HAND SUBCU/FASCIA, OPEN APPROACH (02/15/17) EXCISION OF L HAND SUBCU/FASCIA, OPEN APPROACH (02/15/17) GROUP DEVELOPMENT LEAD FOR SUBSTANCE ABUSE TREATMENT, PSYCHOEDUCATION (05/13/16) GROUP PSYCHOTHERAPY (03/16/17) INDIV DEVELOPMENT LEAD FOR SUBSTANCE ABUSE TREATMENT, PSYCHOEDUCATION (01/20/17) INDIV DEVELOPMENT LEAD FOR SUBSTANCE ABUSE, COGNITIVE BEHAVIORAL (01/20/17) INDIV PSYCHOTHERAPY FOR SUBSTANCE ABUSE TREATMENT, SUPPORT (03/16/17) INDIV PSYCHOTHERAPY FOR SUBSTANCE ABUSE, COGNITIV BEHAVIORAL (03/16/17) INDIV PSYCHOTHERAPY FOR SUBSTANCE ABUSE, PSYCHOEDUCATION (03/16/17) MEDICATION MANAGEMENT (06/13/16) Family History: States: No Known Family Hx - Social History Hx Tobacco Use: Yes Hx Alcohol Use: Yes Hx Substance Use: Yes (heroin, cocaine,) - Immunization History Hx Tetanus Toxoid Vaccination: No Hx Influenza Vaccination: No Hx Pneumococcal Vaccination: No Review Of Systems Except As Marked, All Systems Reviewed And Found Negative. Constitutional: Negative for: Fever, Chills Respiratory: Negative for: Cough, Shortness of Breath Gastrointestinal: Negative for: Nausea, Vomiting Musculoskeletal: Negative for: Back Pain Skin: Negative for: Rash Neurological: Negative for: Weakness, Numbness, Headache, Dizziness Psych: Negative for: Suicidal ideation Physical Exam - Physical Exam Appears: Non-toxic, No Acute Distress Skin: Warm, Dry, Other (Mild erythema to the right arm. no fluctuance or induration) Eye(s): bilateral: Normal Inspection Nose: Normal Oral Mucosa: Moist Lips: Normal Appearing Neck: Normal ROM Cardiovascular: Rhythm Regular, No Murmur Respiratory: Normal Breath Sounds, No Accessory Muscle Use Extremity: Normal ROM Neurological/Psych: Oriented x3, Normal Speech ED Course And Treatment O2 Sat by Pulse Oximetry: 94 (on RA) Pulse Ox Interpretation: Normal Progress Note: On re-exam, the patient reports improvement of symptoms. Ambulatory in the ED with steady gait. Lungs are CTA, heart is RRR, abdomen is soft, non-tender and tolerating PO well. Follow up with the medical doctor within 1-2 days. Return if worsened. Medical Decision Making Medical Decision Making: Patient has been taking antibiotics for the cellulitis for the past 1 day. The patient was instructed to continue taking those medications. Disposition - Disposition Referrals: [facility] [Outside] Disposition: HOME/ ROUTINE Disposition Time: 14:05 Condition: GOOD Additional Instructions: Continue taking the antibiotics. Follow up with the medical doctor within 1-2 days. Return if worsened. Instructions: Narcotic Abuse (ED) - Clinical Impression Clinical Impression: Drug dependence, Cellulitis - PA / MANAGER BOOK / Resident Statement MD/DO has reviewed & agrees with the documentation as recorded. - Scribe Statement The provider has reviewed the documentation as recorded by the Scribe (Gela Blancas) All medical record entries made by the Scribe were at my direction and personally dictated by me. I have reviewed the chart and agree that the record accurately reflects my personal performance of the history, physical exam, medical decision making, and the department course for this patient. I have also personally directed, reviewed, and agree with the discharge instructions and disposition.
== END 2017-04-04 15:05 | disposition home or self-care (01) ==
LOC: C.ER 11:35
DX: F11.20 Opioid dependence, uncomplicated (principal); L03.113 Cellulitis of right upper limb